=== PATIENT | female | born 1970 | race Caucasian/White ===

== ENCOUNTER 2024-07-03 11:42 | Emergency (ER) | payer SELFPAY ==
--- NOTE | ~2024-07-03 | CT_ITS ---
History: Neck pain PROCEDURE: CT cervical spine without intravenous contrast. COMPARISON: None TECHNIQUE: Multiple contiguous axial images of the cervical spine were performed without the administration of i ntravenous contrast. DLP: 461 mGy-cm FINDINGS: Straightening and slight reversal of the normal curvature of the cervical spine is identified, likely muscular in origin. Kyphosis is also noted. Degenerative disease is present, with osteophyte formation and disc space narrowing most prominent at the levels of C5/C6 and C6/C7. No acute fractures are present. The bilateral lung apices are unremarkable. No soft tissue abnormality is present. The airway is patent. Impression: Straightening and slight reversal of the normal curvature of the cervical spine, likely muscular in o rigin. Degenerative disease, without acute fracture. Reviewed, dictated and finalized at location A. SSIONS DEAN Impression: Straightening and slight reversal of the normal curvature of the cervical spine , likely muscular in origin. Degenerative disease, without acute fracture.
--- NOTE | ~2024-07-03 | XR_ITS ---
CHEST RADIOGRAPH, PA AND LATERAL CLINICAL HISTORY: pain, H/O cardiac stents . COMPARISON: None available TECHNIQUE: PA and lateral views of the chest. FINDINGS The cardiomediastinal silhouette is unremarkable. The lungs are clear. Visualized osseous structures and soft tissues are unremarkable. IMPRESSION: No focal infiltrate or effusion. Reviewed, dictated and finalized at location A. IFICATION AND SELECTION SPECIALIST
--- NOTE | ~2024-07-03 | XR_ITS ---
HISTORY: pain, acute onset left shoulder pain, no injury COMPARISON: None TECHNIQUE: 3 views of the left shoulder were performed FINDINGS: No acute fracture. The glenohumeral and acromioclavicular joint space is maintained The visualized portion of the adjacent left lung is clear. The humeral head is well seated within the glenoid fossa. IMPRESSION: No acute fracture or anterior dislocation. Reviewed, dictated and finalized at location A. INSTRUCTOR
[2024-07-03 12:01] VITALS: BP 142/76; PULSE 61; TEMP 36.5; O2SAT 97
--- NOTE | 2024-07-03 13:33 | ED.GENADULT ---
HPI - General Adult General Chief complaint: Neck Pain/Injury <Leslee Jones October, BOARD WORKER - Last Filed: 07/03/24 18:39> Stated complaint: back, shoulder, neck pain x1 week <Leslee Jones October, BOARD WORKER - Last Filed: 07/03/24 18:39> Time Seen by Provider: 07/03/24 13:33 <Leslee Jones October, BOARD WORKER - Last Filed: 07/03/24 18:39> Focused HPI: Padmini Torres is a 53 y/o female who presents with complaints of having severe neck pain that moves down her left shoulder and down her left arm for one week - She thinks she might of woken up with the pain - Movement makes her pain worse GENERAL: Well-appearing, well-nourished, and in no acute distress. HEAD: Normocephalic, atraumatic. CHEST: Clear to auscultation. ?No respiratory distress. HEART: Regular rate and rhythm.? NEURO: ?Alert and oriented x3. Patient screened in triage and initial orders placed.? ?Additional care and disposition to be based upon?diagnostic testing and treatment. <Leslee Jones October, BOARD WORKER - Last Filed: 07/03/24 18:39> History of Present Illness HPI narrative: Agree with MSE <Nabil Brooke MD - Last Filed: 07/03/24 19:41> Related Data Allergies/adverse reactions: Allergies Allergy/AdvReac Type Severity Reaction Status Date / Time Sulfa (Sulfonamide Allergy Severe Anaphylaxis Verified 07/03/24 11:44 Antibiotics) Penicillins AdvReac Intermediate Hives Verified 07/03/24 11:44 eggs AdvReac Intermediate Hives Uncoded 07/03/24 11:44 <Leslee Jones October, BOARD WORKER - Last Filed: 07/03/24 18:39> Exam Narrative: APPEARANCE: No apparent distress. Head: atraumatic. EYES: EOMI, NOSE: Atraumatic NECK: Trachea midline, no midline cervical tenderness, tenderness over left trapezius RESPIRATORY: No increased rate of breathing clear to auscultation CARDIOVASCULAR: RRR, ABDOMINAL: Non-distended MUSCULOSKELETAl: Focal exam of the left upper extremity revealed tenderness along the triceps and upper forearm. He audiologist strength is intact, Radian ulnar median motor function intact. Sensation intact. Pain is worse with movement. NEURO: Alert. Moving 4/4 extremities SKIN:: Warm, dry. Normal color PSYCHIATRIC: Normal affect <Nabil Brooke MD - Last Filed: 07/03/24 19:41> Course Vital Signs Vital signs: Vital Signs Temperature 97.7 F 07/03/24 12:01 Pulse Rate 61 07/03/24 12:01 Blood Pressure 142/76 H 07/03/24 12:01 Pulse Oximetry 97 07/03/24 12:01 Temperature 97.7 F 07/03/24 12:01 Pulse Rate 60 07/03/24 19:00 Respiratory Rate 16 07/03/24 19:00 Blood Pressure 140/96 H 07/03/24 19:00 Pulse Oximetry 98 07/03/24 19:00 <Leslee Gilbert APRN - Last Filed: 07/03/24 18:39> Vital Signs Temperature 97.7 F 07/03/24 12:01 Pulse Rate 61 07/03/24 12:01 Blood Pressure 142/76 H 07/03/24 12:01 Pulse Oximetry 97 07/03/24 12:01 Temperature 97.7 F 07/03/24 12:01 Pulse Rate 60 07/03/24 19:00 Respiratory Rate 16 07/03/24 19:00 Blood Pressure 140/96 H 07/03/24 19:00 Pulse Oximetry 98 07/03/24 19:00 <Nabil Brooke MD - Last Filed: 07/03/24 19:41> Medical Decision Making MDM Narrative Medical decision making narrative: -Course: 53-year-old female presenting with left-sided neck shoulder and arm pain. It is worse with movement. Appears to be musculoskeletal. Imaging negative for fracture. Patient will be given symptomatic treatment discharged follow-up with primary care physician. -DDX includes but is not limited to: Muscle strain, cervical radiculopathy, peripheral neuropathy <Nabil Brooke MD - Last Filed: 07/03/24 19:41> Vital Signs Vital Signs: Vital Signs Temperature 97.7 F 07/03/24 12:01 Pulse Rate 61 07/03/24 12:01 Blood Pressure 142/76 H 07/03/24 12:01 Pulse Oximetry 97 07/03/24 12:01 Temperature 97.7 F 07/03/24 12:01 Pulse Rate 60 01/28/25 19:00 Respiratory Rate 16 07/03/24 19:00 Blood Pressure 140/96 H 07/03/24 19:00 Pulse Oximetry 98 07/03/24 19:00 <Leslee Gilbert APRN - Last Filed: 07/03/24 18:39> Vital Signs Temperature 97.7 F 07/03/24 12:01 Pulse Rate 61 07/03/24 12:01 Blood Pressure 142/76 H 07/03/24 12:01 Pulse Oximetry 97 07/03/24 12:01 Temperature 97.7 F 07/03/24 12:01 Pulse Rate 60 07/03/24 19:00 Respiratory Rate 16 07/03/24 19:00 Blood Pressure 140/96 H 07/03/24 19:00 Pulse Oximetry 98 07/03/24 19:00 <Nabil Brooke MD - Last Filed: 07/03/24 19:41> Discharge Plan Discharge Clinical Impression: Strain of neck muscle, Arm pain <Leslee Gilbert APRN - Last Filed: 07/03/24 18:39> Patient Disposition: Home, Self-Care <Leslee Gilbert APRN - Last Filed: 07/03/24 18:39> Condition: Stable <Leslee Gilbert APRN - Last Filed: 07/03/24 18:39> Instructions: Antibiotic Form, Arm Pain (ED), Neck Pain (ED) <Leslee Gilbert APRN - Last Filed: 07/03/24 18:39> Additional Instructions: Please take Tylenol Robaxin and lidocaine patches for pain control. Please follow-up primary care physician. If you develop severe pain or weakness in your arm return to the ED for re-evaluation. <Leslee Gilbert APRN - Last Filed: 07/03/24 18:39> Patient Language: Greenlandic <Leslee Gilbert APRN - Last Filed: 07/03/24 18:39> Prescriptions: New acetaminophen 500 mg tablet 1,000 mg PO TID PRN (Reason: karlo) 7 Days Qty: 42 0RF methocarbamol 750 mg tablet 1,500 mg PO TID Qty: 35 0RF lidocaine 5 % adhesive patch,medicated 1 patch topical DAILY Qty: 15 0RF Rx Instructions: leave on most painful area for up to 12 hrs <Leslee Jones October, BOARD WORKER - Last Filed: 07/03/24 18:39> Follow-up/Referrals: PHYSICIAN,SERVICE TECH/WELDER [Primary Care Provider] - Reed Simmons MD [Physician] - <Leslee Gilbert, BOARD WORKER - Last Filed: 07/03/24 18:39>
[2024-07-03] MEDS: HYDROcodone/acetaminophen (*CRX) 5-325 MG TABLET 2 TAB (17:55)
[2024-07-03 19:00] VITALS: BP 140/96; PULSE 60; RESP 16; O2SAT 98
--- OUTSIDE RECORDS SUMMARY | 2024-07-03 19:09 | XMS_ITS | Clinical Summary ---
Author Organization [facility] Address [address] [place] [address]. 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 Egg-Derived Products Hives Medium 08/15/2017 Eggs Hives Medium 08/15/2017 Latex Hives Medium 08/26/2022 Lisinopril Other (see comment) 08/26/2020 Penicillins Hives 01/14/2019 Sulfa Antibiotics Anaphylaxis High 01/14/2019 Medications hydrOXYzine 25 MG tablet Take 1 tablet (25 mg total) by mouth 3 (three) times daily as needed. 08/19/19 21 Active lidocaine viscous (XYLOCAINE) 2 % solution Take by mouth as needed for Pain. Active meloxicam (MOBIC) 15 MG tablet Take 1 tablet (15 mg total) by mouth daily. Active nitroglycerin (NITROSTAT) 0.[address] 1 tablet (0.4 mg total) under the tongue every 5 (five) minutes as needed for Chest Pain. Max 3 tabs, then all 911 25 tablet 1 10/05/19 24 Active diclofenac sodium (VOLTAREN) 1 % gelIndications: Foot tendinitis Apply 4 g topically 4 (four) times daily. 100 g 11/18/19 24 Active amLODIPine (NORVASC) 5 MG tablet Take 1 tablet by mouth once daily 90 tablet 1 12/27/19 24 Active isosorbide mononitrate ER (IMDUR) 30 MG 24 hr tablet Take 1 tablet by mouth once daily 90 tablet 1 12/30/19 24 Active atorvastatin (LIPITOR) 80 MG tablet Take 1 tablet by mouth once daily 90 tablet 03/26/20 24 Active atenolol (TENORMIN) 50 MG tablet Take 1 tablet by mouth once daily 90 tablet 1 05/02/20 24 Active traMADol (ULTRAM) 50 MG tabletIndicatio ns:Acute Pain < 3 Day Supply Take 1 tablet (50 mg total) by mouth every 6 (six) hours as needed. Indications: Acute Pain < 3 Day Supply 10 tablet 05/07/20 24 Active lidocaine 4 % patch Place 1 patch onto the skin daily. Remove & Discard patch within 12 hours or as directed by MD 30 patch 05/07/20 24 Active albuterol sulfate HFA 108 (90 Base) MCG/ACT inhaler INHALE 2 PUFFS BY MOUTH EVERY 6 HOURS NEEDED 9 g 06/19/19 25 Active albuterol sulfate HFA 108 (90 Base) MCG/ACT inhaler INHALE 2 PUFFS BY MOUTH EVERY 6 HOURS NEEDED 9 g 05/28/20 24 025 Discontinued Active Problems Problem Noted Date Diagnosed Date Cholecystitis 06/10/2023 Abnormal stress test 01/23/2021 Anxiety 01/23/2021 Chest pain 02/21/2020 Coronary artery disease invo lving [place] coronary artery of [place] heart without angina pectoris 09/26/2019 Mixed hyperlipidemia 09/26/2019 Overview (09/01/2022): Last Assessment & Plan: Will continue patient's Lipitor. 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 But took 1 dose the morning prior to presentation. She states her blood pressure improved to 131/79 from 170s but afterwards she felt tired most of the day. She did not take a 2nd dose. Patient received IV hydralazine with improvement in blood pressure. Will order p.o. Hydralazine 10 t.i.d. And add on hydrochlorothiazide 25 daily. Continue to monitor and adjust medications as needed. Continue with p.r.n. IV hydralazine. Essential hypertension 08/15/2017 Overview (09/01/2022): Last Assessment & Plan: Patient's blood pressure has been within normal limits. - will continue patient's amlodipine and atenolol Obesity 10/20/2013 Tobacco dependence syndrome 10/20/2013 Overview (09/01/2022): TOBACCO USE DISORDER Last Assessment & Plan: #of pack years: 15 - Patient has been educated about the risks of smoking and benefits of stopping. Patient has been advised to quit, and if that fails, to discuss pharmacological options with their PCP. - Discussed potential effects of tobacco including lung cancer, COPD, heart disease, and stroke - Nicotine patch daily Encounters Date Type Department Care Team Description 06/27/2024 8:00 PM HOSPITAL CNA - 06/27/2024 10:55 PM [facility] Emergency [facility] [place] [address] Sandie Delgado DO Neck Pain; Shoulder Pain Discharge Disposition: Left Against Medical Advice 06/27/2024 Travel 05/11/2024 Telephone [facility], [address] [address] Angelica Santana, OFFICE SERVICES ASSOCIATE Results 05/07/2024 4:43 PM HOSPITAL CNA - 05/07/2024 6:44 PM [facility] Emergency [facility] [place] [address] Brayan Jewell MD Abdominal Pain Discharge Disposition: Home or Self Care (Routine Discharge) 05/07/2024 Travel 04/11/2024 10:45 AM [facility] [address] [address] Jaciel Palmer MD Coronary Artery Disease (Follow up); Lipids; Hypertension 04/11/2024 Travel 04/06/2024 1:[address] [facility], [address] [address] Jaciel Palmer MD Holter Monitor 04/06/2024 8:26 AM CDT - 04/06/2024 11:59 PM CDT Hospital Encounter [facility] [place] [address] Jaciel Palmer MD Discharge Disposition: Home or Self Care (Routine Discharge) 04/06/2024 Travel from Last 3 Months Family History Medical History Relation Comments Heart Disease Father Lung Cancer Father Nonhodgkins lymphoma Father Heart Disease Maternal Grandfather Hypertension Mother Stroke Mother gallbladder cancer Mother Heart Disease Paternal Grandmother Relation Status Comments Father Maternal Grandfather Mother Paternal Grandmother Social History Tobacco Use Types Packs/Day Years Used Date Smoking Tobacco: Every Day Cigarettes Smokeless Tobacco: Never Tobacco Cessation:Ready to Q uit: Not Asked; Counseling Given: Not Answered Alcohol Use Standard Drinks/Week Comments Yes 0 (1 standard drink = 0.6 oz pur e alcohol) [facility] Utilities Answer Date Recorded In the past 12 months has e Identify, gas, oil, or water Plyfe threatened to shut off services in your home? No 06/10/2023 Humiliation, Afraid, Rape, and Kick questionnair e Answer Date Recorded Within the last year, have y ou been afraid of your partner or ex-partner? No 06/10/2023 Within the last year, have y ou been humiliated or emotionally abused in other ways by your partner or ex-partner? No Within the last year, have y ou been kicked, hit, slapped, or otherwise physically hurt by your partner or ex-partner? No 06/10/2023 Within the last year, have y ou been raped or forced to have any kind of sexual activity by your partner or ex-partner? No 06/10/2023 AUDIT-C Answer Date Recorded Frequency of Alcohol Consumption Never 01/14/2019 Average Number of Drinks Not on file 019 Frequency of Binge Drinking Not on file 01/04 Overall Financial Resource Strain (CARDIA) Answe r Date Recorded How hard is it for you to pa y for the very basics like food, housing, medical care, and heating? Somewhat hard 06/10/2023 Hunger Vital Sign Answer Date Recorded Within the past 12 months, y ou worried that your food would run out before you got the money to buy more. Sometimes true Within the past 12 months, t he food you bought just didn't last and you didn't have money to get more. Sometimes true 10/2023 PRAPARE - Transportation Answer Date Re corded In the past 12 months, has l ack of transportation kept you from medical appointments or from getting medications? No 10/2023 In the past 12 months, has l ack of transportation kept you from meetings, work, or from getting things needed for daily living? No 06/10/2023 Housing Stability Vital Sign Answer Martell e Recorded In the last 12 months, was t here a time when you were not able to pay the mortgage or rent on time? No 06/10/2023 In the last 12 months, how many places have you lived? 1 06/10/2023 In the last 12 months, was t here a time when you did not have a steady place to sleep or slept in a detention (including now)? No 06/10/2023 Comments No Sex and Gender Information Value Date Recorded Sex Assigned at Female 06/27/2024 6:08 PM HOSPITAL CNA Legal Sex Female 11:31 AM CDT Gender Identity Not on file Sexual Orientation Not on file Last Filed Vital Signs Vital Sign Reading Time Taken Comments Blood Pressure 152/83 06/27/2024 5:24 PM HOSPITAL CNA Pulse 68 06/27/2024 5:24 PM HOSPITAL CNA Temperature 36.7 ??C (98.1 ??F) 06/27/2024 5:24 PM CS T Respiratory Rate 20 06/27/2024 5:24 PM HOSPITAL CNA Oxygen Saturation 100% 06/27/2024 5:24 PM HOSPITAL CNA Inhaled Oxygen Concentration - - Weight 105.7 kg (233 lb 0.4 oz) 06/27/2024 5:24 PM HOSPITAL CNA Height 170.2 cm (5' 7 ) 06/27/2024 5:24 PM HOSPITAL CNA Body Mass Index 36.5 06/27/2024 5:24 PM HOSPITAL CNA Plan of Treatment Upcoming Encounters Date Type Department Care Team (Late st Contact Info) Description 10/10/2024 11:00 AM CDT Office Visit [facility], [address] [id number] Jaciel Palmer MD [facility]. [address] [address] Health Maintenance Due Date Last Done Comments Colorectal Cancer Screening Colonoscopy (10 Years) 1970 Annual Physical 12/02/1974 Pneumococcal Vaccine: Pediatrics (0 to 5 Years) and At-Risk Patients (6 to 64 Years) (1 of 2 - PCV) 12/02/1977 Hepatitis C 12/02/1989 Hepatitis B Vaccines (1 of 3 - 19+ 3-dose series) 12/02/1990 Mammogram Screening 09/13/2019 09/12/2017, 02/12/2016 Zoster Vaccines (1 of 2) 12/02/2021 Cervical Cancer Screening Pa p Smear (Age 30 to 64) Every 3 Years 01/04/2024 01/03/2021 COVID-19 Vaccine ( - 2023-2 5 season) 2024 Influenza Adult (#1) 2024 ASCVD LDL 04/06/2024 04/06/2023, 02/12/2023, 02/22/2020 DTaP, Tdap and Td Vaccines ( 2 - Td or Tdap) 06/14/2024 06/14/2014 Cervical Cancer Screening Pa p with HPV Testing (Age 30 to 64) Every 5 Years 01/03/2026 01/03/2021 Cervical Cancer Screening wi th HPV 01/03/2026 Meningococcal B Vaccine Aged Out No l onger eligible based on patient's age to complete this topic Meningococcal Vaccine Aged Out No shaggy randy eligible based on patient's age to complete this topic RSV Immunizations Under 20 Months Aged Out No longer eligible b ased on patient's age to complete this topic Goals Goal Patient Goal Type Associated Problems Recent Progress Patient-Stated? 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 Procedure Name Priority Date/Time Associated Diagnosis Comments XR CHEST PA OR AP 1V STAT 06/27/2024 6:26 PM HOSPITAL CNA XR SHOULDER LT 3V STAT 06/27/2024 6:2 6 PM HOSPITAL CNA TROPONIN, QUANT STAT 06/27/2024 6:02 PM HOSPITAL CNA COMPREHENSIVE METABOLIC PANEL STAT 06/27/2024 6:02 PM HOSPITAL CNA CBC W/DIFF AUTOMATED STAT 06/27/2024 6:02 PM HOSPITAL CNA ECG 12-LEAD Routine 06/27/2024 5:56 PM HOSPITAL CNA HC URINALYSIS AUTO W/O MICRO STAT 05/07/2024 5:43 PM HOSPITAL CNA LIPASE STAT 05/07/2024 5:43 PM HOSPITAL CNA D-DIMER, QUANTITATIVE STAT 05/07/2024 5:43 PM HOSPITAL CNA TROPONIN, QUANT STAT 05/07/2024 5:43 PM HOSPITAL CNA COMPREHENSIVE METABOLIC PANEL STAT 05/07/2024 5:43 PM HOSPITAL CNA CBC W/DIFF AUTOMATED STAT 05/07/2024 5:43 PM HOSPITAL CNA XR CHEST PORTABLE STAT 05/07/2024 5:2 1 PM HOSPITAL CNA ECG 12-LEAD STAT 05/07/2024 5:01 PM HOSPITAL CNA EVENT RECORDER (ECG) UP TO 30 DAYS COMPLETE Routine 04/25/2024 7:47 AM HOSPITAL CNA Palpitations USE ECHOCARDIOGRAM Routine 04/06/2024 9: 14 AM CDT Chest pain, unspecified type LIPID PANEL Routine 04/06/2023 12:06 PM CDT Coronary artery disease involving [place] coronary artery of [place] heart without angina pectoris from Last 3 Months or Most Recently Relevant to Health Maintenance Results * XR CHEST PA OR AP 1V (06/27/2024 6:26 PM HOSPITAL CNA) Anatomical Region Laterality Modality Chest Radiographic Inez ging 06/27/2024 6:58 PM HOSPITAL CNA Impressions 06/27/2024 7:00 PM HOSPITAL CNA Impression: No acute findings. Referred By: ?? Interpreted By: Gaurav Maya MD, 06/27/2024 6:58 PM Narrative 06/27/2024 7:00 PM HOSPITAL CNA [address] [address] Examination: Chest 1 view portable History: Shoulder pain DATE/TIME: 06/27/2024 6:12 PM Comparison: May 07, 2024 Technique: AP portable view of the chest was obtained. Findings: Heart size, mediastinal contours and pulmonary vasculature are within normal limits. ??No pulmonary consolidation, pleural effusion or pneumothorax. ??No acute osseous abnormality. Procedure Note Gaurav Maya MD - 06/27/[address] [address] Examination: Chest 1 view portable History: Shoulder pain DATE/TIME: 06/27/2024 6:12 PM Comparison: May 07, 2024 Technique: AP portable view of the chest was obtained. Findings: Heart size, mediastinal contours and pulmonary vasculature arewithin normal limits. No pulmonary consolidation, pleural effusion orpneumothorax. No acute osseous abnormality. Impression: No acute findings. Referred By: Interpreted By: Gaurav Maya MD, 06/27/2024 6:58 PM Michelle Kirkland Josiahveena OFFICE SERVICES ASSOCIATE GENERAL IMAGING Final Resul t * XR SHOULDER LT 3V (06/27/2024 6:26 PM HOSPITAL CNA) Anatomical Region Laterality Modality Shoulder Radiographic Inez ging 06/27/2024 7:00 PM HOSPITAL CNA Impressions 06/27/2024 7:02 PM HOSPITAL CNA IMPRESSION: No acute findings. Referred By: ?? Interpreted By: Gaurav Maya MD, 06/27/2024 7:00 PM Narrative 06/27/2024 7:02 PM HOSPITAL CNA [address] [address] EXAMINATION: XR SHOULDER LT 3V HISTORY: Pain after injury DATE: 06/27/2024 6:12 PM COMPARISON: None TECHNIQUE: AP, Grashey and scapular Y views of the left shoulder. ??3 images. FINDINGS: No acute fracture identified. ??No dislocation. ??Joint spaces are unremarkable. ??No destructive bone lesion. Procedure Note Gaurav Maya MD - 06/27/[address] [address] EXAMINATION: XR SHOULDER LT 3V HISTORY: Pain after injury DATE: 06/27/2024 6:12 PM COMPARISON: None TECHNIQUE: AP, Grashey and scapular Y views of the left shoulder. 3images. FINDINGS: No acute fracture identified. No dislocation. Joint spaces areunremarkable. No destructive bone lesion. IMPRESSION: No acute findings. Referred By: Interpreted By: Gaurav Maya MD, 06/27/2024 7:00 PM Michelle Kirkland Maricece OFFICE SERVICES ASSOCIATE GENERAL IMAGING Final Resul t * (ABNORMAL) COMPREHENSIVE METABOLIC PANEL (06/27/2024 6:02 PM HOSPITAL CNA) Only the most recent of2 resultswithin the time period is included. GLUCOSE 105(H) 70 - 99 MG/DL 06/27/2024 6:46 PM HOSPITAL CNA [facility] BUN 8 7 - 18 MG/DL 06/27/2024 6:46 PM HOSPITAL CNA [facility] CREATININE S/P/B 0.86 0.55 - 1.02 MG/DL 06/27/2024 6:46 PM HOSPITAL CNA [facility] SODIUM S/P/B 136 136 - 145 MMOL/L 06/27/2024 6:46 PM HOSPITAL CNA [facility] POTASSIUM S/P/B 4.0 3.5 - 5.1 MMOL/L 06/27/2024 6:46 PM [facility] Comment:SLIGHT HEMOLYSIS, RE SULT MAY BE AFFECTED. CHLORIDE S/P/B 106 97 - 115 MMOL/L 06/27/2024 6:46 PM HOSPITAL CNA [facility] CO2 25.1 21 - 32 MMOL/L 06/27/2024 6:46 PM HOSPITAL CNA [facility] CALCIUM S/P/B 9.3 8.5 - 10.1 MG/DL 06/27/2024 6:46 PM [facility] BILIRUBIN TOTAL S/P/B 0.5 0.2 - 1.2 MG/DL 06/27/2024 6:46 PM [facility] Comment: THIS ASSAY IS NOT RECOMMENDED FOR PATIENTS UNDERGOING TREATMENT WITH ELTROMBOPAG DUE TO THE POTENTIAL FOR FALSELY ELEVATED RESULTS. TOTAL PROTEIN S/P/B 8.0 6.4 - 8.2 G/DL 06/27/2024 6:46 PM [facility] ALBUMIN S/P/B 3.5 3.4 - 5.0 G/DL 06/27/2024 6:46 PM [facility] AST 21 15 - 37 U/L 06/27/2024 6:46 PM [facility] Comment:SLIGHT HEMOLYSIS, RE SULT MAY BE AFFECTED. ALT 23 14 - 55 U/L 06/27/2024 6:46 PM [facility] ALKALINE PHOSPHATASE S/P/B 133 50 - 136 U/L 06/27/2024 6:46 PM [facility] ANION GAP 4.9 2 - 10 MMOL/L 06/27/2024 6:46 PM [facility] BUN CREATININE RATIO 9.2 6 - 26 06/27/2024 6:46 PM [facility] A/G RATIO 0.8(L) 1.0 - 2.0 RATIO 06/27/2024 6:46 PM [facility] GFR ESTIMATE 81(L) >90 ML/MIN/1.7 3 M2 06/27/2024 6:46 PM [facility] Comment: NOTE: eGFR is not calculated for patients <18 years of age or gender unknown. This is an estimated GFR calculation using the new CKD EPI creatinine equation without race and so does not require a correction factor for race. This estimated GFR should not be used for calculating drug doses. 06/27/2024 6:02 PM HOSPITAL CNA [facility] Final Resul t [facility] [address] [place] [address], [place] [phone] * (ABNORMAL) CBC W/DIFF AUTOMATED (06/27/2024 6:02 PM HOSPITAL CNA) Only the most recent of2 resultswithin the time period is included. WBC 7.85 4.5 - 11.0 x10'3/uL 06/27/2024 6:37 PM HOSPITAL CNA [facility] RBC 4.84 4.20 - 5.40 x10'6/uL 06/27/2024 6:37 PM HOSPITAL CNA [facility] HGB 14.4 12.0 - 16.0 G/DL 06/27/2024 6:37 PM HOSPITAL CNA [facility] HCT 43.3 38.0 - 48.0 % 06/27/2024 6:37 PM HOSPITAL CNA [facility] MCV 89.5 81.0 - 99.0 FL 06/27/2024 6:37 PM HOSPITAL CNA [facility] MCH 29.8 27.0 - 31.0 PG 06/27/2024 6:37 PM HOSPITAL CNA [facility] MCHC 33.3 32.0 - 36.0 G/DL 06/27/2024 6:37 PM HOSPITAL CNA [facility] RDW 14.6(H) 11.5 - 14.5 % 06/27/2024 6:37 PM HOSPITAL CNA [facility] PLT 208 130 - 400 x10'3/uL 06/27/2024 6:37 PM [facility] MPV 11.7 9.3 - 12.2 FL 06/27/2024 6:37 PM [facility] DIFFERENTIAL TYPE MANUAL DIFFERENTIAL 06/27/2024 6:38 PM HOSPITAL CNA [facility] SEG NEUTROPHILS 65 % 6:38 PM HOSPITAL CNA [facility] LYMPHOCYTES 22 % 06/27/2024 6:38 PM HOSPITAL CNA [facility] MONOCYTES 10 % 06/27/2024 6:38 PM HOSPITAL CNA [facility] EOSINOPHILS 3 % 06/27/2024 6:38 PM HOSPITAL CNA [facility] ABS. NEUTROPHILS 5.10 1.80 - 7.70 x10'3/uL 06/27/2024 6:38 PM HOSPITAL CNA [facility] ABS. LYMPHOCYTES 1.73 1.00 - 4.80 x10'3/uL 06/27/2024 6:38 PM HOSPITAL CNA [facility] ABS. MONOCYTES 0.79 0.24 - 0.86 x10'3/uL 06/27/2024 6:38 PM HOSPITAL CNA [facility] ABS. EOSINOPHILS 0.24 0.04 - 0.36 x10'3/uL 06/27/2024 6:38 PM [facility] RBC MORPHOLOGY RBC MORPHOLOGY APPEARS NORMAL. SLIDE REVIEWED. 06/27/2024 6:38 PM [facility] PLT EST. ADEQUATE 06/27/2024 6:38 PM [facility] 06/27/2024 6:02 PM HOSPITAL CNA us Michelle Jay OFFICE SERVICES ASSOCIATE LABORATORY Final Resul t [facility] [address] [place] [address], * TROPONIN, QUANT (06/27/2024 6:02 PM HOSPITAL CNA) Only the most recent of2 resultswithin the time period is included. TROPONIN I HIGH SENSITIVITY 4 <54 ng/L 06/27/2024 6:46 PM [facility] Comment: HIGH DOSES OF BIOTIN, TROPONIN-SPECIFIC AUTOANTIBODIES, AND ANTIBODY THERAPY CONTAINING HAMA MAY INTERFERE WITH THIS TEST RESULT. CORRELATION TO CLINICAL HISTORY AND PRESENTATION RECOMMENDED. 06/27/2024 6:02 PM HOSPITAL CNA Michelle Jay OFFICE SERVICES ASSOCIATE LABORATORY Final Resul t [facility] [address] [facility] [address], * ECG 12 lead (06/27/2024 5:56 PM HOSPITAL CNA) Only the most recent of2 resultswithin the time period is included. 06/27/2024 5:56 PM HOSPITAL CNA Narrative [facility] - 06/27/2024 11:29 PM HOSPITAL CNA ?[facility] ? [address] ? Test Date: ?2024-06-27 Pat Name: ? CASS TORRES ? Department: ?? 41 ? Room: ? INPR Gender: ? Female ? 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 Em : ?1970 ? Requested By: MICHELLE JAY Order Number: [id number] ? Reading MD: ?? Jose Luis Hernández ? Measurements Intervals ?[place] ? Rate: ? 61 ? P: ?35 TN: ? 159 ?QRS: ?39 QRSD: ? 98 ? T: ?31 QT: ? 392 ? QTc: ?396 ? 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: Alejandrina : 1970 Requested By: MICHELLE JAY Order Number: [id number] Reading MD: Jose Luis Hernández Measurements Intervals [place] Rate: 61 P: 35 TN: 159 QRS: 39 QRSD: 98 T: 31 QT: 392 QTc: 396 Interpretive Statements SINUS RHYTHM POSSIBLE LEFT ATRIAL ENLARGEMENT [-0.1mV P WAVE IN V1/V2] MINIMAL ST DEPRESSION [0.025+ mV ST DEPRESSION] Compared to ECG 05/07/2024 17:01:26 ST (T wave) deviation now present Sinus bradycardia no longer present Other ischemic changes, not STEMI Preliminary EKG Interpretation by Michelle Jay, OFFICE SERVICES ASSOCIATE ITAL CNA us Michelle Jay OFFICE SERVICES ASSOCIATE ECG ORDERABLES Final Resul t [facility] RAD * (ABNORMAL) URINALYSIS (05/07/2024 5:43 PM HOSPITAL CNA) SPECIMEN TYPE URINE CLEAN CATCH 05/07/2024 5:48 PM HOSPITAL CNA [facility] COLOR (U) YELLOW 05/07/2024 6:17 PM HOSPITAL CNA [facility] TRANSPARENCY CLEAR 05/07/2024 6:17 PM HOSPITAL CNA [facility] SPECIFIC GRAVITY (U) 1.027 1.001 - 1.030 05/07/2024 6:17 PM HOSPITAL CNA [facility] U PH 5.5 5.0 - 9.0 05/07/2024 6:17 PM HOSPITAL CNA [facility] LEUKOCYTES (U) NEGATIVE NEGATIVE 05/07/2024 6:17 PM HOSPITAL CNA [facility] NITRITES NEGATIVE NEGATIVE 05/07/2024 6:17 PM HOSPITAL CNA [facility] PROTEIN RANDOM (U) 10 <30 MG/DL 05/07/2024 6:17 PM HOSPITAL CNA [facility] GLUCOSE (U) NORMAL NORMAL MG/DL 05/07/2024 6:17 PM HOSPITAL CNA [facility] KETONES MG/DL (U) NEGATIVE NEGATIVE MG/DL 05/07/2024 6:17 PM HOSPITAL CNA [facility] UROBILINOGEN 2.0(A) NORMAL MG/DL 05/07/2024 6:17 PM HOSPITAL CNA [facility] BILIRUBIN (U) NEGATIVE NEGATIVE MG/DL 05/07/2024 6:17 PM HOSPITAL CNA [facility] BLOOD (U) NEGATIVE NEGATIVE 05/07/2024 6:17 PM HOSPITAL CNA [facility] URINE SPECIMEN OBTAINED BY CLEAN CATCH PROCEDURE / Unknown 05/07/2024 5:43 PM HOSPITAL CNA us Olivia VILLEGAS URINE ORDERABLES Final Result [facility] [address] [place] [address], [place] [phone] * (ABNORMAL) D-DIMER, QUANTITATIVE (05/07/2024 5:43 PM HOSPITAL CNA) D-DIMER 519(HH) 0 - 500 ng{FEU}/mL 05/07/2024 6:33 PM HOSPITAL CNA [facility] Comment: D-Dimer values less than or equal to 500 ng/mL FEU have a negative predictive value of >95% for exclusion of deep vein thrombosis and pulmonary embolism. In patients over 50 (who tend to have higher normal baseline D-Dimer values), recent studies suggest age-adjusted D-Dimer cutoff values (calculated as: age [years] x 10 ng/mL) result in equivalent outcomes and no additional false negative findings. Successful Call: DDIMR called 05/07/2024 06:35 PM to EMERGENCY ROOM ([id number]/MARÍA BONILLA) by [id number]. 05/07/2024 5:43 PM HOSPITAL CNA Olivia VILLEGAS [facility] Final Result Performing Organization Address City/[facility]/ZIP Co de Phone Number [facility] [address] [place] [address], [place] [phone] * LIPASE (05/07/2024 5:43 PM HOSPITAL CNA) LIPASE 20 13 - 75 UNITS/L 05/07/2024 6:17 PM HOSPITAL CNA [facility] 05/07/2024 5:43 PM HOSPITAL CNA Olivia VILLEGAS [facility] Final Result Performing Organization Address City/[facility] Co de Phone Number [facility] [address] [place] [address], [place] [phone] * XR CHEST PORTABLE (05/07/2024 5:21 PM HOSPITAL CNA) Anatomical Region Laterality Modality Chest Radiographic Inez ging 05/07/2024 5:57 PM HOSPITAL CNA Impressions 05/07/2024 5:59 PM HOSPITAL CNA IMPRESSION: No radiographic evidence of active chest disease. Ordered By: OLIVIA CRUZ Interpreted By: Jason Arango MD, 05/07/2024 5:57 PM Narrative 05/07/2024 5:59 PM HOSPITAL CNA [facility] [address] [place], [place] [address] Examination: XR CHEST PORTABLE Exam time: 05/07/2024 5:00 PM Indication: Chest pain Comparison: 12/16/2023 and 09/16/2023 Technique: Portable AP view the chest, one image. Findings: Mediastinal silhouette and pulmonary vasculature are within normal limits for technique. No pneumothorax, large pleural effusion, or focal consolidation. No acute osseous abnormality. Procedure Note Jason Arango MD - 05/07/[address] [address] Examination: XR CHEST PORTABLE Exam time: 05/07/2024 5:00 PM Indication: Chest pain Comparison: 12/16/2023 and 09/16/2023 Technique: Portable AP view the chest, one image. Findings: Mediastinal silhouette and pulmonary vasculature are withinnormal limits for technique. No pneumothorax, large pleural effusion, orfocal consolidation. No acute osseous abnormality. IMPRESSION: No radiographic evidence of active chest disease. Ordered By: OLIVIA CRUZ Interpreted By: Jason Arango MD, 05/07/2024 5:57 PM us Olivia Cruz PA GENERAL IMAGING Final Result * CLINIC - OUTPATIENT EVENT RECORDER (ECG) UP TO 30 DAYS COMPLETE (Holter) (04/25/2024 7:47 AM HOSPITAL CNA) Impressions [facility] - 04/25/2024 7:47 AM HOSPITAL CNA [facility] [address] [place], [place] ??[address] MOBILE CARDIAC OPERATIONS ADMINISTRATOR REPORT Patient Name: Cass Torres : 1970 [employer] Operator Date: 04/09/2024 End Date: 04/15/2024 Performed At: ??[place], [place] Interpreting Mobile Architect: ?? Koffi Shaw MD PCP: Provider Jl, Ordering Provider: Jaciel Palmer MD INDICATION: Palpitations DURATION OF MONITORIN days NUMBER OF TRANSMISSIONS: 4 (3auto transmissions, 1 manual, 0 periodic) INTERPRETATION: A 7-day mobile cardiac surveillance system monitor analyzed. Interpretable data was 0 days, 8 hours and 9 minutes (5% of monitoring period). The baseline rhythm was sinus rhythm. There was not atrial fibrillation or atrial flutter observed. A minimum heart rate was 61 bpm on 04/09/2024 at 2:17 PM. A maximum heart rate in sinus rhythm was 94 bpm on 04/09/2024 at 4:36 PM. There were no pauses observed. The manual triggered episodes had no reported symptoms and correlated with sinus rhythm. The auto triggered episodes were for sinus rhythm, premature ventricular complex, premature supraventricular complex. CONCLUSION: 7-day mobile cardiac telemetry was with very limited data collected. ??There were no significant arrhythmias observed. Interpreting Mobile Architect: ?? Dr. Koffi Shaw us Jaciel Plamer MD CV VASCULAR ORDERABLES Katrina l Result [facility] * USE ECHOCARDIOGRAM (04/06/2024 9:14 AM CDT) Anatomical Region Laterality Modality Cardiac Echocardiogram 04/06/2024 8:42 AM CDT Narrative 04/06/2024 11:41 AM CDT ?Echocardiography Report Pat.Name: ??CASS TORRES ? Pat.ID: ?[id number] ? St.Date: ?? 04/06/2024 ? Refer.MD: ??[id number], JACIEL PALMER Exam Time: 8:42:00 AM ? Study Type:ECHO WITH CARDIAC DOPPLER COMP Height: ?67 in ? Weight: ?221 lb ? BSA: ? 2.11 m2 ?Age: ??1970,53Y ? Sex: ? F ? BP: ?155/84 ? Sonogrphr: Ann Segura RDMS ?? Pat. Stat.:Outpatient ? CPT - 4: ?75501 ? Reason for Study:Chest pain ? Procedures: 2D, M-mode, Doppler, Color Flow, The study quality is technically adequate. Race: ?W ? ++++++++++++++++++++++++++++++++++++ SUMMARY: ++++++++++++++++++++++++++++++++++++ Left ventricle is normal in size and systolic function Estimated EF of 60-65% Right ventricle is normal in size and systolic function Mild tricuspid regurgitation. Unable to estimate pulmonary pressures. ++++++++++++++++++++++++++++++++++++ FINDINGS: ++++++++++++++++++++++++++++++++++++ LV: ? The left ventricular size is normal. The left ventricular ?systolic function is normal. Estimated left ventricular ?ejection fraction is 60-65%. Left ventricular diastolic ?function is normal. WM: ? Wall motion appears normal in all segments. LVOT: ? The left ventricular outflow tract size is normal. RV: ? The right ventricular size is normal. Right ventricular ?systolic function is normal. TAPSE = 17.4mm (<16 mm ?indicates systolic RV dysfunction). IVS: ?No evidence of ventricular septal defect. LA: ? The left atrial volume is normal ( less than 34 ml/M2). RA: ? Right atrial size is normal. IAS: ?Atrial septum appears intact. KWADWO: ? No evidence of pericardial effusion. AO: ? The aortic root measures 3.1 cm. The proximal ascending ?aorta measures 2.9cm. PA: ? Estimated right atrial pressure of 3 mmHg. SVn: ?Inferior vena cava shows >50% collapse with respiration ?consistent with normal right atrial pressure. AV: ? The aortic valve is trileaflet. No evidence of aortic valve ?stenosis. No evidence of aortic valve regurgitation. MV: ? Structurally normal mitral valve. Trace mitral ?regurgitation. No evidence of mitral stenosis. PV: ? No evidence of pulmonic valve stenosis. No evidence of ?pulmonic regurgitation. Pulmonic valve not well visualized. TV: ? Structurally normal tricuspid valve. Mild tricuspid ?regurgitation. No evidence of tricuspid valve stenosis. ++++++++++++++++++++++++++++++++++++ MEASUREMENTS: ++++++++++++++++++++++++++++++++++++ ?DOPPLER LVOT ?? LVOTpkPG ? 7 mmHg ?LVOTmnPG ? 3 mmHg LVOTpkVel ?129 cm/s (70-110)+* LVOT SV ? 74 ml ?? LVOT TVI ?29.3 cm ? Right Atrium ?? RA Press ? 3 mmHg ?Flores's Disk ? 20 ? Pulmonary Veins ?? PVnpkVeld ? 60.9 cm/s ?PVnVs/Vd ? 1.4 ? PVnpkVels ? 86.4 cm/s ? AV Forward Flow AV TVI ?36.2 cm ?AV pkPG ? 10 mmHg AV pkVel ? 158 cm/s (100-170)+ Area (TVI) ?2.06 cm2 ??(3-5)* AV mnPG ?6 mmHg ?Area (Xavier) ?2.07 cm2 ??(3- 5)* MV Forward Flow MV DeTm ?159 msec ?MV E/A ? 1.5 ? MVA P1/2t ? 4.68 cm2 ??(4-6) ?MV pkE ?99 cm/s (60- 130) MV P1/2t ?47 msec (30-60)+ MV pkA ?64.5 cm/s PV Forward Flow PV pkVel ?93.5 cm/s (60-90)+* PV AC ?165 msec PV pkPG ?3 mmHg ? TV Regurg Flow TV pkPG ? 35 mmHg ?TV pkVel ? 294 cm/s (30- 70)* Right Ventricle ?? RVsys P ? 38 mmHg ?Right Ventricle ??11.1 cm/s TV Forward Flow TV pkE ?53.1 cm/s ? Lat E' ?? Lat e ? 9.46 cm/s ? Lat E/E' ?? Lat E/e ? 10.5 ? Med E' ?? Med e ? 7.83 cm/s ? Med E/E' ?? Med E/e ? 12.6 ? Aortic Valve ?? Aortic Valve Ar ??0.98 ?Aortic Valve Ve ??0.82 ? PV Antegrade Flow Acceleration Sl ?? 373 cm/s2 ?2D Left Ventricle ?? LVIDd ?4.9 cm ?? (3.6-5.2) LV ESV ?32 ml ?? LVIDs ?3 cm ?? (2.3-3.9) LV ESV ?36.1 ml ?? LngAxd ?7.25 cm ?LVESV BP ?35 ml ?? LngAxd ?7.39 cm ?LV EF ? 67 % ?? LV EDV ?97.1 ml ?LV EF ? 65 % ?? LV EDV ? 103 ml ?LV EF BP ?65 % ?? LVEDV BP ? 100 ml ?LV SV ? 65.1 ml ?? LngAxs ?5.82 cm ?LV SV ? 66.9 ml ?? LngAxs ?6.21 cm ?LV SV BP ?65 ml ?? LVPW ?? LVPWd ?1.2 cm ? Right Ventricle ?? RVIDd ?3 cm ?? (2.6-4.3) Right Ventricle ?35 mm ?? Right Ventricle ?32 mm ? Right and Left ??0.612 ? Major [place] ?78 mm ? Ventricular Septum ?? IVSd ? 1.3 cm ? Aorta ?? Ao Rtd ? 3.1 cm ?? (zsc 0.5) Ao Asc ? 2.9 cm ?? (zsc 1.1) LVOT ?? LVOT ? 1.8 cm ?LVOTArea ?2.54 cm2 Ratios ?? IVS RA Single Plane Right Atrium MO ??17.6 mm ? Right Atrium Sy ??44.9 ml ?? Right Atrium Sy ?61 mm ? Right Atrium Sy ??21.3 ml/m2 Right Atrium Sy ??18.1 cm2 ?MMODE Ratios ?? LA/Ao ? 1.34 ?(0.87-1.1)* Aorta ?? Ao Rt ?2.9 cm ?? (2-3.7) Left Atrium ?? LAIDs ?3.9 cm ? TA ?? Tricuspid Annul ??17.4 mm ? <Electronic Signature> 04/06/2024 11:41 AM Jaciel Palmer M.D. Procedure Note Jaciel Palmer MD - 04/06/2024 Echocardiography Report Pat.Name: CASS TORRES Pat.ID: [id number] .Date: 04/06/2024 Refer.MD: [id number], JACIEL PALMER Exam Time: 8:42:00 AM Study Type:ECHO WITH CARDIAC DOPPLER COMP Height: 67 in Weight: 221 lb BSA: 2.11 m2 Age: 6 1970,53Y Sex: F BP: 155/84 Sonogrphr: Ann Segura [facility] Pat. Stat.:Outpatient CPT - 4: 613[address] Reason for Study:Chest pain Procedures: 2D, M-mode, Doppler, Color Flow, The study quality is technically adequate. Race: W ++++++++++++++++++++++++++++++++++++ SUMMARY: ++++++++++++++++++++++++++++++++++++ Left ventricle is normal in size and systolic function Estimated EF of 60-65% Right ventricle is normal in size and systolic function Mild tricuspid regurgitation. Unable to estimate pulmonary pressures. ++++++++++++++++++++++++++++++++++++ FINDINGS: ++++++++++++++++++++++++++++++++++++ LV: The left ventricular size is normal. The left ventricular systolic function is normal. Estimated left ventricular ejection fraction is 60-65%. Left ventricular diastolic function is normal. WM: Wall motion appears normal in all segments. LVOT: The left ventricular outflow tract size is normal. RV: The right ventricular size is normal. Right ventricular systolic function is normal. TAPSE = 17.4mm (<16 mm indicates systolic RV dysfunction). IVS: No evidence of ventricular septal defect. LA: The left atrial volume is normal ( less than 34 ml/M2). RA: Right atrial size is normal. IAS: Atrial septum appears intact. KWADWO: No evidence of pericardial effusion. AO: The aortic root measures 3.1 cm. The proximal ascending aorta measures 2.9cm. PA: Estimated right atrial pressure of 3 mmHg. SVn: Inferior vena cava shows >50% collapse with respiration consistent with normal right atrial pressure. AV: The aortic valve is trileaflet. No evidence of aortic valve stenosis. No evidence of aortic valve regurgitation. MV: Structurally normal mitral valve. Trace mitral regurgitation. No evidence of mitral stenosis. PV: No evidence of pulmonic valve stenosis. No evidence of pulmonic regurgitation. Pulmonic valve not well visualized. TV: Structurally normal tricuspid valve. Mild tricuspid regurgitation. No evidence of tricuspid valve stenosis. ++++++++++++++++++++++++++++++++++++ MEASUREMENTS: ++++++++++++++++++++++++++++++++++++ DOPPLER LVOT LVOTpkPG 7 mmHg LVOTmnPG 3 mmHg LVOTpkVel 129 cm/s (70-110)+* LVOT SV 74 ml LVOT TVI 29.3 cm Right Atrium RA Press 3 mmHg Flores's Disk 20 Pulmonary Veins PVnpkVeld 60.9 cm/s PVnVs/Vd 1.4 PVnpkVels 86.4 cm/s AV Forward Flow AV TVI 36.2 cm AV pkPG 10 mmHg AV pkVel 158 cm/s (100-170)+ Area (TVI) 2.06 cm2 (3-5)* AV mnPG 6 mmHg Area (Xavier) 2.07 cm2 (3-5)* MV Forward Flow MV DeTm 159 msec MV E/A 1.5 MVA P1/2t 4.68 cm2 (4-6) MV pkE 99 cm/s (60-130) MV P1/2t 47 msec (30-60)+ MV pkA 64.5 cm/s PV Forward Flow PV pkVel 93.5 cm/s (60-90)+* PV AC 165 msec PV pkPG 3 mmHg TV Regurg Flow TV pkPG 35 mmHg TV pkVel 294 cm/s (30-70)* Right Ventricle RVsys P 38 mmHg Right Ventricle 11.1 cm/s TV Forward Flow TV pkE 53.1 cm/s Lat E' Lat e 9.46 cm/s Lat E/E' Lat E/e 10.5 Med E' Med e 7.83 cm/s Med E/E' Med E/e 12.6 Aortic Valve Aortic Valve Ar 0.98 Aortic Valve Ve 0.82 PV Antegrade Flow Acceleration Sl 373 cm/s2 2D Left Ventricle LVIDd 4.9 cm (3.6-5.2) LV ESV 32 ml LVIDs 3 cm (2.3-3.9) LV ESV 36.1 ml LngAxd 7.25 cm LVESV BP 35 ml LngAxd 7.39 cm LV EF 67 % LV EDV 97.1 ml LV EF 65 % LV EDV 103 ml LV EF BP 65 % LVEDV BP 100 ml LV SV 65.1 ml LngAxs 5.82 cm LV SV 66.9 ml LngAxs 6.21 cm LV SV BP 65 ml LVPW LVPWd 1.2 cm Right Ventricle RVIDd 3 cm (2.6-4.3) Right Ventricle 35 mm Right Ventricle 32 mm Right and Left 0.612 Major [place] 78 mm Ventricular Septum IVSd 1.3 cm Aorta Ao Rtd 3.1 cm (zsc 0.5) Ao Asc 2.9 cm (zsc 1.1) LVOT LVOT 1.8 cm LVOTArea 2.54 cm2 Ratios IVS RA Single Plane Right Atrium MO 17.6 mm Right Atrium Sy 44.9 ml Right Atrium Sy 61 mm Right Atrium Sy 21.3 ml/m2 Right Atrium Sy 18.1 cm2 MMODE Ratios LA/Ao 1.34 (0.87-1.1)* Aorta Ao Rt 2.9 cm (2-3.7) Left Atrium LAIDs 3.9 cm TA Tricuspid Annul 17.4 mm <Electronic Signature> 04/06/2024 11:41 AM Jaciel Palmer M.D. us Jaciel Palmer MD ECHO Final Resul t * (ABNORMAL) LIPID PANEL (04/06/2023 12:06 PM CDT) CHOLESTEROL 107 <200 MG/DL 04/06/2023 12:58 PM T [facility] TRIGLYCERIDES 94 <150 MG/DL 04/06/2023 12:58 PM T [facility] HDL 24(L) >40.0 MG/DL 04/06/2023 12:58 PM T [facility] LDL (CALCULATED) 64 <100 MG/DL 04/06/20 12:58 PM T [facility] NON HDL CHOLESTEROL 83 <130 MG/DL 04/06 12:58 PM [facility] CHOL/HDL RATIO 4.5 0.0 - 4.5 04/06/2023 12:58 PM [facility] VLDL CALCULATION 19 5 - 55 MG/DL 04/06/2023 12:58 PM [facility] LIPID INTERPRETATION 04/06/2023 12:58 PM T [facility] Comment: [facility]ENS[facility] REPORT RECOMMENDATIONS: ?ADULT ?CHILD ??LOW RISK: ?CHOLESTEROL ? <200 ? <170 ?TRIGLYCERIDE ?<150 ?--- ?HDL ? >=60 ?--- ?LDL ? <100 ? <110 ??BORDERLINE: ?CHOLESTEROL ? 200-239 ?? 170-199 ?TRIGLYCERIDE ?150-199 ? --- ?HDL ?40-59 ?--- ?LDL ? 100-159 ?? 110-129 ??HIGH RISK: ?CHOLESTEROL ? >=240 ?>=200 ?TRIGLYCERIDE ?>=200 ? --- ?HDL ?<40 ?--- ?LDL ? >=160 ?>=130 04/06/2023 12:0 6 PM CDT us Angelica Santana OFFICE SERVICES ASSOCIATE LABORATORY Final Result [facility] [address] [place] [id number], from Last 3 Months or Most Recently Relevant to Health Maintenance Advance Directives * Full Code (Latest Code Status on File) Date Activated Date Inactivated Comments 06/10/2023 1:20 AM 06/13/2023 3:36 PM * Full Code Date Activated Date Inactivated Comments 02/21/2020 11:49 PM 02/22/2020 3:05 PM Care Teams Senior Php Software Developer Relationship Specialty Start Date End Date None, Provider, MD PCP - General UNKNOWN PHYSICIAN SPECIALTY 12/16/23
--- OUTSIDE RECORDS SUMMARY | 2024-07-03 19:09 | XMS_ITS | Encounter Summary ---
Author Organization [facility] Address [address] [place] [address] Phone Care Team Providers Care Customer Care Coordinator Name Role Phone MakennaAditya Primary Care Provider [phone] Brian Rangel DO Unavailable [phone] Chris Doll DO Unavailable [phone] Encounter Details Date Type Department Care Team (Late st Contact Info) Description 11/04/2020 Telephone [facility] [address] [place] [address] Brian Rangel, DO [address] [place] [address] Social History Tobacco Use Types Packs/Day Years Used Date Smoking Tobacco: Every Day Cigarettes Smokeless Tobacco: Never Comments:pt reports she is r latoya to quit, but needs assistance Alcohol Use Standard Drinks/Week Comments Never 0 (1 standard drink = 0.6 oz pur e alcohol) PHQ-2 Answer Date Recorded Total Score - Questions 1-9 0 09/04 Comments No Sex and Gender Information Value Date Recorded Sex Assigned at Not on file Legal Sex Female 7:52 AM CDT Gender Identity Not on file Sexual Orientation Not on file documented as of this encounter Miscellaneous Notes * Telephone Encounter - Farida Jefferson - 11/04/2020 9:24 AM CDT Patient called and unable to make appt today she is rescheduled to next week. documented in this encounter Plan of Treatment Not on file documented as of this encounter Visit Diagnoses Not on filedocumented in this encounter Additional Health Concerns Infection Onset Date Last Indicated Resolved Time MRSA 01/03/2021 01/03/2021 Assessment Noted Time PHQ-9 Depression Total Score: 0 09/17/19 21 1:35 PM CDT documented as of this encounter Care Teams Customer Care Coordinator Relationship Specialty Start Date End Date Aditya Mensah, PARMJIT [address] [place] [id number] PCP - General Physician School Bus Inspector 04/26/18 Brian Rangel DO [address] [place] [phone] Consulting Physician Oncology 08/14/20 Chris Doll DO [facility] [address] Obstetrics & Gynecology 08/14/20 documented as of this encounter
--- OUTSIDE RECORDS SUMMARY | 2024-07-03 19:09 | XMS_ITS | Clinical Summary ---
Author Organization [facility] Address [address] [place] [address] Phone Care Team Providers Care Electrical Troubleshooter Name Role Phone Aditya Mensah Susu PARNELL Primary Care Provider [phone] Brian Rangel DO Unavailable [phone] Chris Doll DO Unavailable [phone] Allergies Active Allergy Reactions Criticality Noted Date Comments Egg-Derived Products Hives Medium 08/15/2017 Lisinopril Other (see Comments) 08/26/2020 Penicillins Hives 04/02/2019 Sulfa Antibiotics Anaphylaxis 04/02/2019 Medications HYDROcodone-ac etaminophen (NORCO) 5-325 MG Tablet Take 1 Tab by mouth every 6 hours as needed for Moderate or more severe pain. 10 Tab 9 Active Additional Information Patient not taking.Reported on 09/16/2020 albuterol 108 (90 Base) MCG/ACT Aerosol Solution INHALE 2 PUFFS BY MOUTH EVERY 4 HOURS NEEDED 0 Active amLODIPine (NORVASC) 10 MG Tablet TAKE 1 TABLET BY MOUTH ONCE DAILY 0 Active atenolol (TENORMIN) 50 MG Tablet TAKE 1 TABLET BY MOUTH ONCE DAILY 0 Active atorvastatin (LIPITOR) 80 MG Tablet TAKE 1 TABLET BY MOUTH ONCE DAILY AT NIGHT 0 Active clopidogrel (PLAVIX) 75 MG Tablet TAKE 1 TABLET BY MOUTH ONCE DAILY 1 Active esomeprazole (NexIUM) 20 MG CAPSULE DELAYED RELEASE Take 20 mg by mouth. Active hydrocortisone 2.5 % Cream 1 Active hydrOXYzine (ATARAX) 25 MG Tablet TAKE 1 TABLET BY MOUTH THREE TIMES DAILY NEEDED 1 Active nitroGLYCERIN (NITROSTAT) 0.4 MG SL Tablet nitroglycerin 0.4 mg sublingual tablet DISSOLVE ONE TABLET UNDER THE TONGUE EVERY 5 MINUTES NEEDED FOR CHEST PAIN. DO NOT EXCEED A TOTAL OF 3 DOSES IN 15 MINUTES 0 Active hydrOXYzine (ATARAX) 50 MG Tablet Take 1 Tablet by mouth every 6 hours as needed for Itching. 30 Tablet 1 Active HYDROcodone-ac etaminophen (NORCO) 5-325 MG Tablet Take 1-2 Tablets by mouth every 6 hours as needed for Moderate or more severe pain. 12 Tablet 1 Active Active Problems Problem Noted Date Diagnosed Date IVON III (vulvar intraepithelial neoplasia III) 0 09/16/2020 Immunizations Immunization Administration Dates Next Due TDAP Vaccine 06/14/2014 Family History Medical History Relation Name Comments Hypertension Brother Cancer Father Hypertension Father Heart Disease Maternal Grandfather Heart Disease Maternal Grandmother Cancer Mother Stroke Mother Cancer Paternal Grandfather Heart Disease Paternal Grandfather Heart Disease Paternal Grandmother Relation Name Status Comments Brother Father Maternal Grandfather Maternal Grandmother Mother Other [place] Paternal Grandfather Paternal Grandmother Social History Tobacco Use Types Packs/Day Years Used Date Smoking Tobacco: Every Day Cigarettes Smokeless Tobacco: Never Tobacco Cessation:Ready to Q uit: Yes Comments:pt reports she is ready to quit, but needs assistance Alcohol Use [...] Sign Reading Time Taken Comments Blood Pressure 142/70 02/04/2022 12:00 PM CDT Pulse 69 02/04/2022 12:15 PM CDT Temperature 36.7 ??C (98 ??F) 02/04/2022 11:06 AM CDT Respiratory Rate 18 02/04/2022 11:06 AM CDT Oxygen Saturation 96% 02/04/2022 12:15 PM CDT Inhaled Oxygen Concentration - - Weight 99.8 kg (220 lb) 02/04/2022 11:06 AM CDT Height 170.2 cm (5' 7 ) 02/04/2022 11:06 AM CDT Body Mass Index 34.46 02/04/2022 11:06 AM CDT Plan of Treatment Health Maintenance Due Date Last Done Comments Hepatitis C Virus (HCV) Screening 1970 Hepatitis B Immunization (1 of 3 - 19+ 3-dose series) 12/02/1990 Pap Smear 12/02/1992 Cervical Cancer Screening (CCS) 12/02/2001 HPV/Cotest 12/02/2001 Colonoscopy 12/02/2016 Colorectal Cancer Screening 12/02/2016 Cologuard 12/02/2021 Immunochemical Fecal Occult Blood 12/02/2021 Mammogram 12/02/2021 Pneumococcal Immunization (5 0+ years) (1 of 1 - PCV) 12/02/2021 Zoster Immunization (1 of 2) 12/02/2021 Influenza Immunization (#1) 2024 SARS-COV-2 Immunization (1 - season) 2024 Respiratory Syncytial Virus (RSV) Immunization (Adult) (1 - 1-dose 75+ series) 12/02/2046 DTaP/Tdap/Td Immunization Discontinued 06/14/2014 Meningococcal Immunization (ACWY) Aged Out No longer eligible based on patient's age to complete this topic Pneumococcal Immunization Combined Aged Out No longer eligible based on patient's age to complete this topic Rotavirus Immunization Aged Out No lo nger eligible based on patient's age to complete this topic Additional Health Concerns Infection Onset Date Last Indicated MRSA 01/03/2021 01/03/2021 Insurance MEDICAID [place] MEDICAID [employer] Care Teams Electrical Troubleshooter Relationship Specialty Start Date End Date Aditya Mensah PAC [address] [place] [id number] PCP - General Physician Keymodule Assembly Supervisor 04/26/18 Brian Rangel DO [address] [place] [phone] Consulting Physician Oncology 08/14/20 Chris Doll DO [address] [place] [id number] Obstetrics & Gynecology 08/14/20
--- OUTSIDE RECORDS SUMMARY | 2024-07-03 19:09 | XMS_ITS | Referral Summary ---
Author Organization [facility] [employer] Address [address] [place] [address] Care Team Providers Care Salesforce Specialist Name Role Phone Unavailable Primary Care Provider Unavailabl e Source Comments [facility] [employer],non-owned Affiliates and Associated Physician Practices is amultiple site organization consisting of ambulatory clinics and hospital sitesin [place], [place], [place] and [place]. This disclosure is being madepursuant to the Care Everywhere program and may not contain all information available regarding this patient. Last updated 18.[facility] [employer] Social History Tobacco Use Types Packs/Day Years Used Date Smoking Tobacco: Never Assessed Sex and Gender Information Value Date Recorded Sex Assigned at Not on file Gender Identity Not on file Sexual Orientation Not on file Plan of Treatment Not on file Procedures Procedure Name Priority Date/Time Associated Diagnosis Comments MAMMO BILAT DIAGNOSTIC Routine 02/12/2016 1:18 PM CDT Breast lump from Last 3 Months or Most Recently Relevant to Health Maintenance Results * VIRIDIANA DIAG DIRECT DIG IMAGE BILATERAL G0204 (02/12/2016 1:18 PM CDT) Anatomical Region Laterality Modality Bilateral Mammography 02/12/2016 1:47 PM CDT Narrative 02/12/2016 4:00 PM CDT EXAMINATION: Digital bilateral diagnostic mammogram and right breast ultrasound on 02/12/2016. Low-dose digital breast tomosynthesis examination was performed with 2D and 3D acquisitions. Computer assisted detection was utilized. PRIOR: This is the patient's baseline mammogram and breast ultrasound. No previous breast imaging studies are available for comparison. HISTORY: 45-year-old female with palpable right breast mass for 3 days. Is present on the skin over this region. BREAST PARENCHYMAL DENSITY: There are scattered areas of fibroglandular density. RISK ASSESSMENT CALCULATION: The risk assessment was not completed by the patient. FINDINGS: Right breast: An oval, circumscribed, fat-containing mass is present in the medial breast approximately 7 cm from the nipple near the skin surface adjacent to the palpable marker, best seen on tomosynthesis images 3/65 on the LM view and 22/65 on the CC view. No architectural distortion or microcalcifications are evident on 2-D mammogram or tomosynthesis images. Ultrasound of the right breast demonstrates a superficial hyperechoic area measuring approximately 2.2 x 1.8 x 0.8 cm in the 3 to 4:00 position 7 cm from the nipple. This corresponds to the palpable mass and findings on mammography. These findings represent fat necrosis. Left breast: No suspicious masses, areas of architectural distortion or microcalcifications are evident on 2D mammogram or tomosynthesis images. ASSESSMENT: BIRADS Category 2: Benign finding(s). RECOMMENDATION: Bilateral screening mammogram in one year. Findings and recommendation were discussed with the patient by Dr. Maloney. Thank you for allowing us to participate in the care of your patient. [facility] utilizes [email or web address] as a reminder system to notify patients of their next recommended mammogram. I, Rhonda Webster, have personally reviewed the images and I agree with this report. Ginette Bro MD MAMMO ORDERABLES from Last 3 Months or Most Recently Relevant to Health Maintenance
--- OUTSIDE RECORDS SUMMARY | 2024-07-03 19:09 | XMS_ITS | Referral Summary ---
Author Organization [facility] Address [address] [place] [address] Care Team Providers Care Assistant Teacher Name Role Phone Danyelle Cristobal MD Unavailable [phone] Antonio Moon DO Unavailable [phone] Aditya Mensah Primary Care Provider [phone] Mike Arias MD Unavailable [phone] Miscellaneous, Not In File Unavailable Unava ilable Allergies Active Allergy Reactions Criticality Noted Date Comments Egg Hives Medium 08/15/2017 Epoxy Resin Rash Medium 08/26/2022 Latex Hives Medium 08/26/2022 Penicillins Hives,Swelling Medium Sulfa (Sulfonamide Antibiotics) Anaphylaxis High Medications albuterol HFA (PROVENTIL HFA,VENTOLIN HFA,PROAIR HFA) 90 mcg/actuation inhaler Inhale 2 puffs every 4 (four) hours as needed for wheezing 1 Inhaler 9 Active amLODIPine (NORVASC) 10 mg tablet Take 1 tablet (10 mg total) by mouth daily 90 tablet 2 0 Active Additional Information Patient taking differently:10 mg oralEvery morning, Reported on 2021 atorvastatin (LIPITOR) 80 mg tablet Take 1 tablet (80 mg total) by mouth nightly 90 tablet 2 0 Active atenoloL (TENORMIN) 50 mg tablet Take 1 tablet (50 mg total) by mouth daily 90 tablet 2 0 Active Additional Information Patient taking differently:50 mg oralEvery morning, Reported on 2021 nitroglycerin (NITROSTAT) 0.[address] 0.4 mg under the tongue every 5 (five) minutes as needed 0 Active aspirin 81 mg chewable tabletIndicatio ns:Chest Pain Take 1 tablet (81 mg total) by mouth daily 30 tablet [address] (NexIUM) 40 mg capsule Take 1 capsule (40 mg total) by mouth daily before breakfast 30 capsule 1 3 Active triamcinolone (KENALOG) 0.1 % cream Apply topically 2 (two) times a day 30 g 3 Active ketorolac (TORADOL) 10 mg tablet Take 1 tablet (10 mg total) by mouth every 6 (six) hours as needed for pain 20 tablet 4 Active lidocaine viscous (XYLOCAINE) 2 % solution Apply 15 mL to the mouth or throat every 3 (three) hours 200 mL 4 Active Active Problems Problem Noted Date Diagnosed Date Other chest pain 08/25/2022 Assessment & Plan (08/26/2022 11:52 AM CDT): Patient has been having nonspecific chest pain and shortness breath over 2 days prior to presentation. Has been taking Nexium for symptomatic relief. Does not use nitroglycerin at home. ECG in the emergency department was normal, except for frequent PVCs. Patient uses marijuana and tobacco on a daily basis. This puts patient at high risk for ACS but could very well be gastric related. - pending stress test, echocardiogram, and cardiology evaluation - cardiac consultation - daily BMP CBC Mag and phos - aspirin daily - p.r.n. nitro Cellulitis of face 05/24/2022 OA (osteoarthritis) 05/24/2022 Dental caries extending into pulp 04/05/2022 Acute cholecystitis 11/29/2021 Anxiety 01/23/2021 Hidradenitis suppurativa 01/23/2021 Overview (01/23/2021): History of axillary boils as well as inguinal, genital, and perianal boils. Numerous healing pock rose along lower abdomen, pannus, and inguinal folds. Plan: - Referral to dermatology placed today. 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 Campa with reported LSIL/RONEY I -09/19/20: colposcopy low grade, unsatisfactory with no ECC or cervical biopsy performed, pap NILM/HPV 18/45+ (endocervical/TZ sample present). 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 Campa w/ path IVON III. Path reviewed at [facility] and in agreement. -12/26/20: Coalescent papules with purplish hue along medial surfaces of bilateral labia noted on exam. Risks/benefits/alternatives of laser ablation and possible biopsies discussed. Pt consented for procedure. -01/23/21: Pt re-consented for EUA/Vulvar CO2 laser, possible vulvar biopsy, and hysteroscopy/D&C today. Pt will attempt to quarantine despite this week for father. Plan: -To OR for EUA, vulvar CO2 laser, possible vulvar biopsy, and D&C 02/03/21 -Referral to colorectal surgery placed today given concern for and risk of ronaldo- anal involvement with IVON 3. Adrenal adenoma, left 01/24/2020 Assessment & Plan (08/05/2021 10:27 AM CONSTRUCTION MANAGER): Left adrenal adenoma detected in early 2017 the adenoma showed up on MRI on 04/18/19- 3.0 cm Stable in size on CT scan on 10/11/19 and 08/22/20 ??patient had normal electrolytes on 02/23/21 [place]'s was rules out with 1 mg Dexamethasone suppression test on 02/02/20 Serum metanephrines were also normal Normal Aldosterone and PRA on 08/23/20 Plan: ?? The diagnosis reviewed with patient Check 1 mg dexamethasone suppression test If condition stable then will be checked again in one year. Assessment & Plan (08/04/2020 10:23 AM CONSTRUCTION MANAGER): Left adrenal adenoma detected in early 2017 the adenoma showed up on MRI on 04/18/19- 3.0 cm and again on CT scan on 10/11/19 Measuring 3.3 cm ??patient had normal electrolytes on 02/22/20 Madhu's was rules out with 1 mg Dexamethasone suppression test on 02/02/20 Serum metanephrines were also normal Plan: ?? Explained to patient the benign nature of the mass based on MRI and CT findings. We will repeat CT scan of the adrenal gland Check labs as ordered. If condition stable then will be checked again in one year. Assessment & Plan (01/24/2020 3:21 PM CDT): Left adrenal adenoma detected in early 2017 the adenoma showed up on MRI on 04/18/19- 3.0 cm and again on CT scan on 10/11/19 Measuring 3.3 cm Plan: Explained to patient the benign nature of the mass based on MRI and CT findings. We will evaluate adrenal hormones to rule out madhu's with 1 mg dexamethasone suppression test Will check for pheochromocytoma and rule out hyper aldosteronism Internal hemorrhoids 12/05/2019 Assessment & Plan (12/05/2019 10:40 AM CDT): Pt asked about what to do about internal hemorrhoids. She denies any blood in the stool at this time but has had it is in the past. Advised to use fiber supplement daily and can use prep H suppositories for int hemorrhoids and prep H cream for external. Can also use Sitz baths or tucks pads along with Prep H. Right upper quadrant pain 10/22/2019 Overview (12/26/2020): Added automatically from request for surgery [id number] Assessment & Plan (12/05/2019 10:38 AM CDT): Colonoscopy showed diverticulosis, one adenoma polyp, and internal hemorrhoids. There was no evidence of active diverticulitis. Pt says she continues to get this RLQ pain that starts with her menstrual period and stops once her cycle is over. No GI source of pain. Pt advised to see clerical proofreader as this is likely clerical proofreader origin given it only occurs during menstruation. Assessment & Plan (10/22/2019 11:11 AM CDT): Occurs only during her menstrual cycle. She gets sharp pain in RLQ that radiates into RL back and shoots down right leg. She says the pain stops once her menstrual cycle is over. She also noted that menstrual cycle has been lasting longer and heavier lately. This has been occurring for about 14 years. Likely related to clerical proofreader issue but will do colonoscopy to rule out GI issues. Pt encouraged to make clerical proofreader appt. She says she has an appointment in January. Acute diverticulitis 10/22/2019 Overview (10/22/2019): Added automatically from request for surgery [id number] Assessment & Plan (10/22/2019 11:08 AM CDT): CT showed possible indications of diverticulitis. Given pain is in opposite side of her diverticulosis and that this has been occurring for 14 years only during menstrual period, unlikely this is diverticulitis. She was given abx from ER and finished these yesterday. Pain stopped with last day of menstrual period last Tuesday. We will wait about 6 weeks from resolution of symptoms just in case she had case of diverticulitis. Class 1 obesity due to exces s calories without serious comorbidity in adult 10/22/2019 Assessment & Plan (08/26/2022 11:54 AM CDT): BMI:34.77 - discussed risks of obesity and association with chronic medical problems including HTN, DM, and JOHNY - advised patient on importance of maintaining a diet and exercise regimen including cardiovascular and weight-bearing exercises - nutrition consultation Coronary artery disease invo lving nooksack coronary artery of nooksack heart without angina pectoris 09/26/2019 Assessment & Plan (08/26/2022 11:52 AM CDT): Continue as planned under other chest pain Mixed hyperlipidemia 09/26/2019 Assessment & Plan (08/26/2022 11:52 AM CDT): Will continue patient's Lipitor. Smoker 09/26/2019 Overview (01/23/2021): Continues to smoke a lot given recent of her dad yesterday. Not interested in quitting. May be interested later. Plan: - continue to address smoking cessation at each visit Bilateral carotid artery stenosis 09/26/2019 Marijuana use 03/10/2019 Assessment & Plan (03/10/2019 12:08 AM CDT): Patient also uses marijuana. She states sometimes she vapes. Patient advised to avoid E cigarettes due to risk of serious pulmonary illness associated with e cigarette use. Status post insertion of shaun g-eluting stent into left anterior descending (LAD) artery 09/22/2018 Overview (09/26/2019): Distal LAD at origin of 3rd diagonal, 3.5 x 8 mm Xience MIAH S/P drug eluting coronary stent placement 2018 Overview (09/26/2019): Origin of 3rd diagonal 2.5 x 12 mm synergy MIAH Presence of drug-eluting blane nt in left circumflex coronary artery 09/22/2018 Overview (09/26/2019): Distal circumflex, 2.25 x 12 mm synergy MIAH S/P PTCA (percutaneous transluminal coronary ang ioplasty) 09/22/2018 Overview (09/26/2019): To occluded 2nd diagonal, 2 mm vessel Chest pain 09/05/2018 Assessment & Plan (03/10/2019 12:06 AM CDT): Concerning for angina. Patient stopped taking all of her medications including aspirin and Plavix about a month ago. She states she was also supposed to be taking Lopressor, Norvasc and a cholesterol pill. She states she stopped all her medications due to financial reasons as she could no longer afford them. She states she does not have insurance. Will resume all her home medications. Will continue to trend troponins. Initial troponin was negative. EKG showed a sinus rhythm. Will also consult social work for help with home medications at discharge. Will hold off on cardiology consult at this time. Patient had nitropaste on however developed an itchy rash. Nitropaste was discontinued. Will order sublingual nitroglycerin. Patient was counseled extensively on the importance of taking her medications especially her aspirin and Plavix given her stents for at least 1 year to prevent blockage of the stents as it could be dangerous and fatal. Patient was advised to notify her doctors that she is having difficulty affording her medications and to see if perhaps they had any samples they could give her. Assessment & Plan (09/05/2018 10:24 PM CDT): Atypical chest pain not worsened with activity and occurs at rest. Seems to worsen with deep breathing. She describes it as a burning but it radiates to her arms. Nitroglycerin did not help and only gave her headache. Patient had a negative stress test in 2013. She was seen by Cardiology and stress test was ordered along with echo. Inflammatory etiology suspected and patient was started on colchicine and ibuprofen by Cardiology. Patient has a history of gastric ulcers a year ago will start patient on b.i.d. PPI. Will make patient NPO after midnight. Troponins negative x2. Hypertensive urgency 09/05/2018 Assessment & Plan (09/05/2018 10:31 PM CDT): Patient was recently started on clonidine 0.2 [...] as needed. Continue with p.r.n. IV hydralazine. Ascites 08/15/2017 Assessment & Plan (08/15/2017 11:31 AM CDT): Unclear etiology. Differential diagnosis is broad and may include portal hypertension due to nonalcoholic steatohepatitis or other etiologies cirrhosis, intra- abdominal or intrapelvic cancer. Will do ultrasound-guided paracentesis, Gram stain and cell count of the fluid to differentiate if there is any spontaneous bacterial peritonitis because patient is having abdominal pain, for fluid culture, cytology, albumin, protein and LDH. Patient has been empirically started on ceftriaxone and metronidazole by emergency physician, will keep on distant antibiotics for now. GI consultation obtained and pending. Also I am ordering ultrasound of the right upper quadrant, spleen, pelvic organs. Periumbilical pain 08/15/2017 Assessment & Plan (08/15/2017 11:34 AM CDT): Unclear etiology. Will start proton pump inhibitors, GI consultation obtained. Will keep her NPO until ultrasound and a paracentesis is completed. CT scan shows some colitis changes and will continue antibiotics for this. Bilious vomiting with nausea 08/15/2017 Assessment & Plan (08/15/2017 11:39 AM CDT): Unclear etiology, again differential diagnosis is broad. Will rule out any gallstone cholecystitis , gastritis, colitis, pyelonephritis. Workup is pending. Will start proton pump inhibitor and keep on clear liquid diet after the test. Diarrhea of presumed infectious origin 8 Assessment & Plan (08/15/2017 11:39 AM CDT): Will collect stool studies. Continue metronidazole and Rocephin. Essential hypertension 08/15/2017 Assessment & Plan (08/26/2022 11:53 AM CDT): Patient's blood pressure has been within normal limits. - will continue patient's amlodipine and atenolol Assessment & Plan (08/05/2021 10:26 AM CONSTRUCTION MANAGER): Controlled with medication Complicated with CAD- had stent placed. ?? Plan: ?? Continue same medication and follow up with PCP and cardiology Assessment & Plan (08/04/2020 10:24 AM CONSTRUCTION MANAGER): Controlled with medication Complicated with CAD- had stent placed. ?? Plan: ?? Continue same medication and follow up with PCP and cardiology Assessment & Plan (01/24/2020 3:23 PM CDT): Controlled with medication Complicated with CAD- had stent placed. Plan: Continue same medication and follow up with PCP and cardiology. Assessment & Plan (08/15/2017 11:40 AM CDT): She does not take any medications at home her blood pressure is somewhat controlled, could be a better control with medications will start her on a Norvasc when she tolerates p.o. better. Iron deficiency anemia 08/15/2017 Assessment & Plan (08/26/2022 11:53 AM CDT): Long history of iron deficiency anemia. Patient would benefit from iron supplementation. Assessment & Plan (03/10/2019 12:08 AM CDT): Hemoglobin appears stable from prior. Continue to monitor. Assessment & Plan (09/05/2018 10:21 PM CDT): Chronic issue. Hemoglobin is at her baseline. Continue to monitor. Assessment & Plan (08/15/2017 11:43 AM CDT): This is microcytic anemia, suspected to be iron deficient. Workup is pending. Tobacco dependence syndrome 10/20/2013 Overview (09/09/2016): TOBACCO USE DISORDER Assessment & Plan (08/26/2022 11:53 AM CDT): #of pack years: 15 - Patient has been educated about the risks of smoking and benefits of stopping. Patient has been advised to quit, and if that fails, to discuss pharmacological options with their PCP. - Discussed potential effects of tobacco including lung cancer, COPD, heart disease, and stroke - Nicotine patch daily Assessment & Plan (03/10/2019 12:03 AM CDT): Patient currently smoking 1 pack per day. Requesting nicotine patch. Will order. Assessment & Plan (09/05/2018 10:20 PM CDT): Two packs per day and has done so since age 13. Patient currently wants to smoke a cigarette. Patient advised cannot smoke in the hospital. Will order nicotine patch. Adiposity 10/20/2013 Overview (09/10/2016): OBESITY NOS Gastric ulcer Assessment & Plan (10/22/2019 11:11 AM CDT): EGD back in 2018 showed gastric ulcer. She was treated for this. No symptoms currently worrisome for ulcer. Abnormal stress test Resolved Problems Problem Noted Date Diagnosed Date Resolved Date Dental abscess 04/05/2022 05/25/2022 Social History Tobacco Use Types Packs/Day Years Used Date Smoking Tobacco: Every Day Cigarettes 0.7 43.1 Started: 1981 Smokeless Tobacco: Never Tobacco Cessation:Ready to Q uit: No; Counseling Given: No Comments:Refused Alcohol Use Standard Drinks/Week Comments Not Currently 0 (1 standard drink = 0.6 oz pur e alcohol) Once per month Social Connection and Isolat ion Panel [NHANES] Answer Date Recorded In a typical week, how many times do you talk on the phone with family, friends, or neighbors? More than three times a week 05/24/2022 How often do you get togethe r with friends or relatives? More than three times a week 05/24/2022 How often do you attend chur ch or holiness services? Never 05/24/2022 Do you belong to any clubs o r organizations such as religious groups, unions, fraternal or athletic groups, or school groups? No 05/24/2022 How often do you attend meet ings of the clubs or organizations you belong to? Never 05/24/2022 Are you , , di vorced, , never , or living with a partner? 05/24/2022 AUDIT-C Answer Date Recorded Q1: How often do you have a drink containing alc ohol? Never 11/29/2021 Average Number of Drinks Not on file 022 Frequency of Binge Drinking Not on file 11/05 Overall Financial Resource Strain (CARDIA) Answe r Date Recorded How hard is it for you to pa y for the very basics like food, housing, medical care, and heating? Very hard 05/24/2022 PHQ-2 Answer Date Recorded PHQ-2 Total Score (If total score is 3 or more points, staff should administer the PHQ-9) 0 11/30/2021 Hunger Vital Sign Answer Date Recorded Within the past 12 months, y ou worried that your food would run out before you got the money to buy more. Often true 05/24/20 22 Within the past 12 months, t he food you bought just didn't last and you didn't have money to get more. Often true 05/24/2022 PRAPARE - Transportation Answer Date Re corded In the past 12 months, has l ack of transportation kept you from medical appointments or from getting medications? Yes 05/06 In the past 12 months, has l ack of transportation kept you from meetings, work, or from getting things needed for daily living? Yes 05/24/2022 Housing Stability Vital Sign Answer Martell e Recorded In the last 12 months, was t here a time when you were not able to pay the mortgage or rent on time? Yes 05/24/2022 In the last 12 months, how many places have you lived? 1 05/24/2022 In the last 12 months, was t here a time when you did not have a steady place to sleep or slept in a [place] [facility] [place] (including now)? No 05/24/2022 Personal Safety Answer Date Recorded Have you ever been in or are you currently in a harmful physical or emotional relationship or is someone making you feel afraid or unsafe? Denies 10/09/2023 Education Answer Date Recorded What is the highest level of school you have completed or the highest degree you have received? Some college, no degree 05/24/2022 Comments No Sex and Gender Information Value Date Recorded Sex Assigned at Not on file Legal Sex Female 12:30 AM CONSTRUCTION MANAGER Gender Identity Female 01/17/2020 4:14 PM CDT Sexual Orientation Straight 01/17/2020 4: 14 PM CDT Last Filed Vital Signs Vital Sign Reading Time Taken Comments Blood Pressure 135/71 10/09/2023 2:03 PM CDT Pulse 63 10/09/2023 2:03 PM CDT Temperature 36 ??C (96.8 ??F) 10/09/2023 2:03 PM CDT Respiratory Rate 18 10/09/2023 2:03 PM CDT Oxygen Saturation 99% 10/09/2023 2:03 PM CDT Inhaled Oxygen Concentration - - Weight 99.8 kg (220 lb) 10/09/2023 2:03 PM CDT Height 170.2 cm (5' 7 ) 10/09/2023 2:03 PM CDT Body Mass Index 34.46 10/09/2023 2:03 PM CDT Plan of Treatment Not on file Medical Devices Implanted Type Area Peoplesoft Programmer Device Identifier Shelf Expiration Date Model / Serial / Lot [employer] [id number] Synergy 2.5mm 12mm 144cm Radiopaque 1 Access Port Inflation Lumen - [id number] Implanted:Qty: 1 on 09/07/2018 by Sulaiman Lynch MD at [facility] Stent [employer] 11/23/2019 [id number] / / [id number] [employer] [id number] System Coronary Stent Xience Isabel Everolimus L8 Mm Od3.5 Mm Rapid Exchange - [id number] Implanted:Qty: 1 on 09/07/2018 by Sulaiman Lynch MD at [facility] Stent [employer] 04/09/2019 [id number] / / [id number] [employer] [id number] Synergy 2.25mm 12mm 144cm Radiopaque 1 Access Port Inflation - [id number] Implanted:Qty: 1 on 09/07/2018 by Sulaiman Lynch MD at [facility] Stent [employer] 04/17/2020 [id number] / / [id number] Procedures Procedure Name Priority Date/Time Associated Diagnosis Comments PAP AND HIGH RISK HPV, REFLEX TO GENOTYPING Routine 09/19/2020 1:44 PM CDT COLONOSCOPY 11/28/2019 9:16 AM CDT SCREENING MAMMOGRAM BILATERAL W GEE Schedule Routine, Read Routine (OP Routine) 09/12/2017 11:29 AM CDT Screening breast examination HEPATITIS PANEL, ACUTE Routine 08/15/2017 12:57 PM CDT from Last 3 Months or Most Recently Relevant to Health Maintenance Results * Pap and High Risk HPV, reflex to Genotyping (09/19/2020 1:44 PM CDT) Pap test 09/19/2020 1:44 PM CDT 09/19/2020 3:35 PM CDT Narrative 10/03/2020 9:02 AM CDT [facility] results best viewed via link to PDF [facility] [place] [address] CYTOPATHOLOGY REPORT FINAL Patient Name: ??CASS TORRES Gender: ??F : ??1970 (Age: 49) Address: ??[address] [place], [place] ??[address] Hospital #: ??[id number] Service: ??Oncology Location: ??[facility] Patient Type: ??[facility] Ancillary Taken: ??09/19/2020 Received: ??09/19/2020 Accessioned: ??09/22/2020 Reported: ??10/03/2020 Physician(s): ??Jenn Marcial M.D. ?? FINAL INTERPRETATION SOURCE OF SPECIMEN: ? Liquid based Thin Prep pap with HPV STATEMENT OF ADEQUACY: ?- Satisfactory for evaluation ?- Endocervical cells/transformation zone sample present GENERAL CATEGORY: ?- Negative for squamous intraepithelial lesion or malignancy DESCRIPTION: ?- Fungal organisms morphologically consistent with kapil species Comments HPV Result: ??POSITIVE for high risk types of Human Papilloma Virus (HPV) RNA ? HPV 16 RNA result - Negative HPV 18/45 RNA result - Positive The high risk HPV probe detects the presence of HPV types: 16, 18, 31, 33, 35, 39, 45, 51, 52, 56, 58, 59, 66 and 68. ??These HPV tests were performed at [facility] in [place], [place] utilizing the Gen-Probe Aptima assay. This specimen has been rescreened in accordance with this laboratory's Manager Medical Affairs Program. 10/03/2020 09:02 TAY Renner, CT(ASCP)[facility] Report Electronically Reviewed and Signed Out By Marlen English M.S.,CT(ASCP) 10/03/2020 09:02:45 Cervicovaginal Cytology (Pap Test) Disclaimer: The Pap test is a screening test used to detect cervical cancer and its precursors; it is not a diagnostic procedure. False negative and false positive results do occur. Pap test results should be interpreted in the context of pertinent clinical information and biopsy results as indicated. Gross Description A. ??Liquid based Thin Prep pap with HPV: ??Cervical/vaginal - Screening ThinPrep ?? Clinical Diagnosis and History Last Menstrual Period: 09/04/20 Menstrual History: Irregular Cycles Contraceptive History: No Previous Atypia: LGSIL The patient is a 49 year old woman with history of cervical dysplasia. The HPV test was performed by [facility], [address] [place] [address]. Report Images and scanned documents, if included only viewable in PDF version The performance characteristics of some immunohistochemical stains, in-situ hybridization and fluorescence in-situ hybridization tests and immunophenotyping by flow cytometry cited in this report (if any) were determined by the Surgical Pathology Department at [facility] as part of an ongoing senior quality manager program and in compliance with federally mandated regulations drawn from the Clinical Laboratory Improvement Act of 1988 (CLIA '88). ??Some of these tests rely on the use of analyte specific reagents and are subject to specific labeling requirements by the [place] Food and Drug Administration. ??Such diagnostic tests may only be performed in a facility that is certified by the Department of Health and Human Services as a high complexity laboratory under CLIA '88. ??The FDA has determined that such clearance or approval is not necessary. ??This test is used for clinical purposes. ??It should not be regarded as investigational or for research. ??Nevertheless, federal rules concerning the medical use of analyte specific reagents require that the following disclaimer be attached to the report: This test was developed and its performance characteristics determined by the Surgical Pathology Department of [facility]. ??It has not been cleared or approved by the U. S. Food and Drug Administration. us Notinfile Unknown LAB CYTOLOGY ORDERABLES Final Result * COLONOSCOPY (11/28/2019 9:16 AM CDT) Anatomical Region Laterality Modality Other Narrative Procedure Note Danyelle Cristobal MD - 11/28/2019 9:16 AM CDT [facility] Patient Name: Cass Torres Procedure Date: 11/28/2019 9:16 AM Date of : 1970 Admit Type: Outpatient Age: 48 Gender: Female Attending MD: aDnyelle Cristobal M.D. Room: [facility] ENDOSCOPY ROOM 1 Note Status: Finalized Patient Profile: This is a 48 year old female. Patient has chronic intermittent complaints of pain in the right lower quadrant radiating to her right leg and it seems to correlate with her menstrual periods. Again the painis mainly during her menstrual periods. Sometimes thepain goes to the back. She had recent CT scan of theabdomen pelvis about 1 month ago which showed possiblesigmoid diverticulitis Procedure: Colonoscopy Indications: This is the patient's first colonoscopy, Abdominalpain in the right lower quadrant, Suspecteddiverticulitis Referring MD: NELLY Shannon Providers: Danyelle Cristobal M.D. Impression: - Diverticulosis in the entire examined colon, more prominent in the sigmoid colon. - One 10 mm polyp in the sigmoid colon, removed witha hot snare. Resected and retrieved. - Internal hemorrhoids. Recommendation: - Await pathology results. - Repeat colonoscopy in 3 years for screeningpurposes. - Continue present medications. - No pathology noted to explain the patient'ssymptoms of pain. Consider lumbosacral spine CT scan imagingand OBGYN evaluation Medicines: Monitored Anesthesia Care Complications: No immediate complications. Estimated Blood Loss: Estimated blood loss: none. Procedure: Pre-Anesthesia Assessment: - Prior to the procedure, a History and Physical was performed, and patient medications and allergieswere reviewed. The patient's tolerance of previous anesthesia was also reviewed. The risks and benefitsof the procedure and the sedation options and riskswere discussed with the patient. All questions were answered, and informed consent was obtained. Prior Anticoagulants: The patient has taken Plavix (clopidogrel), last dose was 4 days prior toprocedure. ASA Grade Assessment: II - A patient with mildsystemic disease. After reviewing the risks and benefits, the patient was deemed in satisfactory condition toundergo the procedure. The benefits, risks and alternatives of theprocedure and sedation were discussed and informed consent was obtained. All questions were answered. Please referto the signed informed consent document in the medical record. The scope was passed under direct vision.The Pediatric Colonoscope PCF-H190L [id number] was introduced through the anus and advanced to the the cecum, identified by appendiceal orifice andileocecal valve. The bowel preparation used was Miralax. The bowel preparation used was bisacodyl tablets. Bowel prep was administered using a split dose. Thequality of the bowel preparation was excellent. Findings: The perianal and digital rectal examinations were normal. The ileum appeared normal. The cecum appeared normal. Multiple small and large-mouthed diverticula were found in the entire colon. More significant diverticular changes noted with the sigmoid colon. No inflammatory changes noted. A 10 mm polyp was found in the sigmoid colon. The polyp was pedunculated. The polyp was removed with a hot snare. Resection and retrieval were complete. Internal hemorrhoids were found during retroflexion. The hemorrhoids were medium-sized. Electronically signed by Danyelle Cristobal M.D. Danyelle Cristobal M.D. 11/28/2019 9:59:56 AM Number of Addenda: 0 Note Initiated On: 11/28/2019 9:16 AM Procedure Code(s): --- Professional --- 58906, Colonoscopy, flexible; with removal of tumor(s), polyp(s), or other lesion(s) by snare technique Diagnosis Code(s): --- Professional --- K64.8, Other hemorrhoids D12.5, Benign neoplasm of sigmoid colon R10.31, Right lower quadrant pain K57.30, Diverticulosis of large intestine without perforation orabscess without bleeding CPT copyright 2017 [employer]. All rights reserved. The codes documented in this report are preliminary and upon content strategist reviewmay be revised to meet current compliance requirements. Recognized by the [employer] for promoting quality in endoscopy Danyelle Cristobal MD ENDOSCOPY PROCEDURES Final Result * Screening Mammogram Bilateral W Gee (09/12/2017 11:29 AM CDT) Anatomical Region Laterality Modality Breast Bilateral Mammography Addenda Addendum by Thom Castillo MD on 09/19/2017 3:24 PM CDT ADDENDUM #1 Comparison to previous mammogram at [facility] in [facility] on 02/12/2016 shows a similar pattern of scattered fibroglandular densities in the breasts bilaterally without interval changes suspicious for malignancy. ??The small group of very superficial calcifications in the lateral 9:00 right breast are old and unchanged. ??Recommend rescreening in one year. BI-RADS Category 2 Electronically signed by: Thom Castillo Jr., M.D. ORIGINAL REPORT - ADDENDUM ABOVE SCREENING MAMMOGRAM BILATERAL W GEE HISTORY: Encounter for screening mammogram for malignant neoplasm of breast. Family history of breast cancer (maternal great aunt). TECHNIQUE: 2 views of each breast were obtained with bilateral breast tomosynthesis. COMPARISON: None available. ??Previous mammogram at [facility] in [place], [place]; not brought today for comparison. FINDINGS: Scattered fibroglandular densities bilaterally. ??A ??group of of approximately 8 microcalcifications is located very superficially in the lateral 9 o'clock position of the right breast No dominant mass, skin thickening, nipple retraction or suspicious cluster of microcalcifications is otherwise seen. Digital technology was employed plus computer aided detection software (R2) was utilized in interpretation of these images. ??This facility utilizes a reminder system to notify patient's of yearly mammograms. IMPRESSION: 1. Very superficially located group of microcalcifications in lateral 9:00 right breast; likely dermal calcifications. ??Suggest correlation to previous mammogram. 2. ??No other findings suspicious for malignancy. BI-RADS 0--needs comparison with outside films. Electronically signed by: Thom Castillo Jr., M.D. Impressions 09/12/2017 11:45 AM CDT 1. Very superficially located group of microcalcifications in lateral 9:00 right breast; likely dermal calcifications. ??Suggest correlation to previous mammogram. 2. ??No other findings suspicious for malignancy. BI-RADS 0--needs comparison with outside films. Electronically signed by: Thom Castillo Jr., M.D. Narrative 09/12/2017 11:45 AM CDT SCREENING MAMMOGRAM BILATERAL W GEE HISTORY: Encounter for screening mammogram for malignant neoplasm of breast. Family history of breast cancer (maternal great aunt). TECHNIQUE: 2 views of each breast were obtained with bilateral breast tomosynthesis. COMPARISON: None available. ??Previous mammogram at [facility] in [place], [place]; not brought today for comparison. FINDINGS: Scattered fibroglandular densities bilaterally. ??A ??group of of approximately 8 microcalcifications is located very superficially in the lateral 9 o'clock position of the right breast No dominant mass, skin thickening, nipple retraction or suspicious cluster of microcalcifications is otherwise seen. Digital technology was employed plus computer aided detection software (R2) was utilized in interpretation of these images. ??This facility utilizes a reminder system to notify patient's of yearly mammograms. us Ryanne Aguila MD IMG MAMMO PROCEDURES Edited Result - Final * Hepatitis panel, acute (08/15/2017 12:57 PM CDT) Hep A IgM Negative Negative [facility] Comment:Testing performed by : [facility], [address] [place] [address], [id number] Hep B core IgM Negative Negative [facility] ([place] Comment:Testing performed by : [facility], [address] [place] [address], [id number] Hep C Ab Negative Negative [facility] ([place] Comment:Testing performed by : [facility], [address] [place] [address], [id number] HepBsAg Negative Negative [facility] ([place] Comment:Testing performed by : [facility], [address] [place] [address], [id number] Blood specimen (specimen) 08/15/2017 12:57 PM CDT 08/15/2017 7:02 PM CDT Narrative [facility] ([place]) - 08/15/2017 8:46 PM CDT us Kellie Maguire MD LAB MICROBIOLOGY - GENERAL OR DERABLES Final Result [facility] ([place] Department [place] [address] from Last 3 Months or Most Recently Relevant to Health Maintenance Insurance [facility] Advance Directives For more information, please contact: [phone] * Full Code (Latest Code Status on File) Date Activated Date Inactivated Comments 08/25/2022 7:55 PM 08/26/2022 10:14 PM * Full Code Date Activated Date Inactivated Comments 05/24/2022 12:59 AM 05/25/2022 5:32 PM * Full Code Date Activated Date Inactivated Comments 11/29/2021 1:08 PM 2021 5:54 PM * Full Code Date Activated Date Inactivated Comments 11/28/2019 8:33 AM 11/28/2019 2:59 PM * Full Code Date Activated Date Inactivated Comments 11/28/2019 8:33 AM 11/28/2019 8:33 AM Care Teams Assistant Teacher Relationship Specialty Start Date End Date Aditya Mensah PA [address] [place] [address] PCP - General Family Practice 05/23/22 Danyelle Cristobal MD Consulting Physician Gastroenterology 08/16/17 Antonio Moon DO [address] [place] [address] DR ROBB [address] [place] [id number] Cardiovascular Disease 09/07/18 Mike Arias MD [address] [place] [address] Resident Family Medicine 05/25/22 Miscellaneous, Not In File 08/26/22
--- OUTSIDE RECORDS SUMMARY | 2024-07-03 19:09 | XMS_ITS | Clinical Summary ---
Author Organization [facility] [employer] Address [address] [place] [place] [address] Care Team Providers Care Front Worker Name Role Phone Unavailable Primary Care Provider Unavailabl e Source Comments [facility] [employer],non-owned Affiliates and Associated Physician Practices is amultiple site organization consisting of ambulatory clinics and hospital sitesin [place], [place], [place] and [place]. This disclosure is being madepursuant to the Care Everywhere program and may not contain all information available regarding this patient. Last updated 18.[facility] [employer] Family History Medical History Relation Name Comments Cancer - Breast Maternal Aunt Relation Name Status Comments Maternal Aunt Social History Tobacco Use Types Packs/Day Years Used Date Smoking Tobacco: Never Assessed Sex and Gender Information Value Date Recorded Sex Assigned at Not on file Gender Identity Not on file Sexual Orientation Not on file Plan of Treatment Health Maintenance Due Date Last Done Comments COLOGUARD (AGES 45-75) - COL ON CA SCREENING 1970 COLON MONITORING 1970 COLONOSCOPY - COLON CA SCREENING 1971 CT COLONOGRAPHY - COLON CA SCREENING 1970 Colorectal Cancer Screening 1970 FIT - COLON CA SCREENING 1970 FLEX SIG - COLON CA SCREENING 1970 LIPID TESTING 1970 PAP SMEAR 1970 HIV SCREENING 12/02/1986 HEPATITIS C SCREENING 11/28/1989 DTAP/TDAP/TD VACCINES (1 - Tdap) 12/02/1990 HEPATITIS B VACCINE (1 of 3 - 19+ 3-dose series) 12/02/1990 MAMMOGRAM 02/11/2018 02/12/2016 PNEUMOCOCCAL VACCINE 50+ (1 of 1 - PCV) 12/02/2021 ZOSTER VACCINE (1 of 2) 12/02/2021 COVID-19 VACCINE (2023-2 5 season) 2024 INFLUENZA VACCINE (#1) 2024 DEPRESSION SCREENING 06/06/2024 HIB VACCINE Aged Out No longer eligi ble based on patient's age to complete this topic HPV VACCINE Aged Out No longer eligi ble based on patient's age to complete this topic MENINGOCOCCAL (Group B) VACCINE Aged Out No longer eligible based on patient's age to complete this topic MENINGOCOCCAL VACCINE Aged Out No shaggy randy eligible based on patient's age to complete this topic Procedures Procedure Name Priority Date/Time Associated Diagnosis [...] palpable marker, best seen on tomosynthesis images on the LM view and on the CC view. No architectural distortion [...] participate in the care of your patient. [facility] utilizes [employer] as a reminder system to notify patients of their next recommended mammogram. I, Rhonda Webster, have personally reviewed the images and I agree with this report. Ginette Bro MD MAMMO ORDERABLES from Last 3 Months or Most Recently Relevant to Health Maintenance
--- OUTSIDE RECORDS SUMMARY | 2024-07-03 19:09 | XMS_ITS | Data Portability ---
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 Plan of Treatment Reminders Order Date Submit Date Provider Last Modified By Organization Details Last Modified Time Details Appointments None recorded. Lab biopsy, tissue - endometrial biopsy 2022 [facility], [address] [place], [address], 3 22:33:21 FSH (follicle-s timulating hormone), serum 2022 023 [facility], [address] [place], [address], 3 11:11:11 estradiol, serum 2022 023 [facility], [address] [place], [address], 3 15:36:50 pap, LB 2022 023 [facility], [address] [place], [address], 3 13:36:53 HPV E6+E7 mRNA, qualitative PCR, cervix 2022 023 [facility], [address] [place], [address], 3 15:05:39 Referral None recorded. Procedures None recorded. Surgeries None recorded. Imaging US, transvagina l 2022 023 [email or web address] Not available 15:08:52 MAMMO, screening, digital, bilateral 2022 023 [email or web address] [facility]? S [facility], [address] [facility], [place], [address], 12:07:17 Medication Orders Provera 10 mg tablet 2022 023 [email or web address] 1 [facility], [address] [place], [address], 3 12:51:15 Provera 10 mg tablet 2022 023 [email or web address] 1 [facility], [address] [place], [address], 3 12:51:15 [facility]rium 200 mg [facility] [address] [place], [address], 12:52:12 Patient TargetsNo targets recorded. Patient Instructions Encounter Date Encounter Id Patient Instructions Last Modified By Organization Details Last Modified Time 03/21/2023 [id number] endometrial biopsy information [email or web address] Not available 03/21/2023 11:39:17 Reason for Referral None Reported. Results Created Date Observation Date Name Description Value Unit Range Abnormal Flag Note LastModifiedBy Organization Detail LastModifiedTime 03/25/20 23 03/25/2023 ESTRA DIOL estradiol 15 pg/mL normal Refer ence Range Folli cular Phase : 19-14 4 Mid-C ycle: 64-35 7 Lutea l Phase : 56-21 4 Postm enopa usal: < or = 31 Refer ence range estab lishe d on post- puber fredrick patie nt popul ation . No pre-p ubert al refer ence range estab lishe d using this assay . For any patie nts for whom low Estra diol level s are antic ipate d (e.g. males , pre-p ubert al child shan and hypog onada l/pos t-men opaus al femal es), the [facility] Estra diol, Ultra sensi tive, LCMSM S assay is recom alison d (orde r code 28338 ). Jeannine cordero note: patie nts being treat ed with the drug fulve stran t (Fasl odex( R)) have demon strat ed signi fican t inter feren ce in immun oassa y metho ds for estra diol measu remen t. The cross react ivity could lead to false ly eleva pancho estra diol test resul ts leadi ng to an inapp ropri ate clini sissy asses sment of estro gen statu s. [facility] order code [id number] -Estr adiol , Ultra sensi tive LC/MS /MS demon strat es negli gible cross react ivity with fulve stran t. NO COLLE CTION DATE RECEI YASMINE. WE HAVE USED THE DATE THE SPECI MEN WAS RECEI YASMINE BY THIS LABOR ATORY THE COLLE CTION DATE. IF THIS IS INCOR RECT, JEANNINE Cordero CONTGraciela CT CLIEN T SERVI GUS. PHONE NUMBE R: [phone] Not Available [facility] [address] [place], [address], 03/25/2023 15:36:50 03/21/20 23 03/22/2023 FSH FSH 5.5 mIU/m L Refer ence Range s are for femal es aged 18 years - Adult Lexis l Menst ruati ng Femal e: Folli cular phase : 2.5-1 0.2 mIU/m L Mid-C ycle Peak: 3.4-3 3.4 mIU/m L Lutea l phase : 1.5-9 .1 mIU/m L Pregn ant: <0.3 mIU/m L Post- menop ausal : 23.0- 116.6 mIU/m L Not Available [facility] [address] [place], [address], 03/22/2023 11:11:11 03/21/2003/23/2023 HPV HIGH RISK HPV high risk Negati ve negati ve normal The HPV High Risk assay is inten ded for use as co-te sting with cytol ogy and not as a subst itute for regul ar cervi sissy cytol ogy scree wilbert. This assay is not inten ded for use as a scree wilbert devic e for women under age 30 with lexis l cervi sissy cytol ogy. Not Available [facility] [address] [facility], [place], [address], 03/23/2023 15:05:39 03/21/2003/23/2023 TISSU E PATHO LOGY clinical information Abnor mal uteri ne bleed ing Not Available [address] [address] [place], [address], 03/23/2023 22:33:21 03/21/20 23 03/23/2023 TISSU E PATHO LOGY pathologist Vamsi clarke M.D., Board Certi fied in Anato memo Patho logy and Clini sissy Patho logy( elect artur sanchez) Not Available [facility] [address] [place], [address], 03/23/2023 22:33:21 03/21/20 23 03/23/2023 TISSU E PATHO LOGY A source Endom etriu m, biops y Not Available [facility] [address] [address] , [place], [address], 03/23/2023 22:33:21 03/21/2003/23/2023 TISSU E PATHO LOGY A gross description Speci men is recei yasmine in 10% neutr al buffe red forma jose, label ed with multi ple patie nt ident ifier s and consi sts of multi ple fragm ents of soft tissu e aggre gatin g to 2.0 x 1.4 x 0.3 cm, irreg ular in shape and varela-b rown in color . The speci men is entir melissa submi tted in one casse tte. Gross exam( s) perfo rmed at: [facility] [place] [address] [facility] [address], [place] [address] Labor atory Direc tor: NANDO Clarke MD Not Available [facility] [address], [address], 03/23/2023 22:33:21 03/21/2003/23/2023 TISSU E PATHO LOGY A diagnosis Fragm ents of prede cidua lized and/o r decid ualiz ed benig n endom etriu m (foca lly necro tic) with blood . Not Available [address], [address], 03/23/2023 22:33:21 03/21/2003/23/2023 TISSU E PATHO LOGY A comment Exoge nous hormo nal effec t canno t be ruled out. Pleas e corre late and follo w clini liz . Not Available [address], [address], 03/23/2023 22:33:21 03/21/2003/24/2023 THINP REP TIS PAP clinical information: normal None given Not Available [address], [address], 03/24/2023 13:36:53 03/21/2003/24/2023 THINP REP TIS PAP LMP: normal None given Not Available [address], [address], 03/24/2023 13:36:53 03/21/2003/24/2023 THINP REP TIS PAP prev. Pap: normal None given Not Available [facility] [address] [place], [address], 03/24/2023 13:36:53 03/21/2003/24/2023 THINP REP TIS PAP prev. BX: normal None given Not Available [address], [address], 03/24/2023 13:36:53 03/21/2003/24/2023 THINP REP TIS PAP source: normal Cervi x Not Available [address], [address], 03/24/2023 13:36:53 03/21/2003/24/2023 THINP REP TIS PAP statement of adequacy: normal Satis facto ry for evalu ation . Endoc ervic al/tr ansfo rmati on zone compo nent prese nt. Age and/o r menst rual statu s not provi ded Not Available [address], [address], 03/24/2023 13:36:53 03/21/2003/24/2023 THINP REP TIS PAP interpretati on/result: normal Cytol ogy Resul ts: Negat saroj for intra epith elial lesio n or malig shante . Not Available [address], [address], 03/24/2023 13:36:53 03/21/2003/24/2023 THINP REP TIS PAP comment: normal This Pap test has been evalu ated with compu ter irvin pancho techn ology . Not Available [address], [address], 03/24/2023 13:36:53 03/21/2003/24/2023 THINP REP TIS PAP cytotechnolo gist: normal PCM, CT( CP) CT Scree wilbert Locat ion: [address] [address] [address] [place] [place] [address] Not Available [facility] [address], [place], [address], 03/24/2023 13:36:53 03/21/2003/24/2023 THINP REP TIS PAP comment EXPLA NATOR Y NOTE: The Pap is a scree wilbert test for cervi sissy cance r. It is not a diagn ostic test and is subje ct to false negat saroj and false posit saroj resul ts. It is most relia ble when a satis facto ry sampl e, regul martin obtai patric, is submi tted with relev ant clini sissy findi ngs and histo ry, and when the Pap resul t is evalu ated along with histo sarika and curre nt clini sissy infor matio n. Not Available [facility] [address], [place], [address], 03/24/2023 13:36:53 03/21/2003/21/2023 US, trans vagin al No observ ation record ed. [email or web address] [facility] [address], [place], [address], 03/21/2023 14:17:19 Result Notes None recorded. Problems Name Problem SNOMED Code Status Onset Date Resolution Date Notes Provider Name and Address Organization Details Recorded Time Abnormal uterine bleeding 39707363506 100 Completed 202004/25/2023 Other specifie d abnormal uterine and vaginal bleeding ; Progress : Stable Added By: Dalia Amin Add to Current Problems : YES ProblemS tatus: Current Anila Britsch null, [facility] 3 05:14:45 Human papillom avirus deoxyrib onucleic acid detected , high risk on cervical specimen 526663778 Active 2020 Cervical high risk human papillom avirus (HPV) DNA test positive ; Progress : Stable Added By: Dalia Amin Add to Current Problems : YES ProblemS tatus: Current [place]sch null, [place] [facility] 3 05:14:53 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 Other specifie d noninfla mmatory disorder s of vulva and perineum ; Progress : Stable Added By: Jam Campa Add to Current Problems : YES ProblemS tatus: Current Anila Rodriguez null, [place] [facility] 3 05:14:59 Sampling of vagina for Papanico laou smear Completed 201904/25/2023 Encounte r for gynecolo gical examinat ion (general ) (routine ) without abnormal findings ; Progress : Stable Added By: Jade Fitch Add to Current Problems : YES ProblemS tatus: Current Anila Britsch null, [place] [facility] 3 05:14:41 Finding of pattern of menstrua l cycle 258924972 Completed 202004/25/2023 Excessiv e and frequent menstrua tion with irregula r cycle; Progress : Stable Added By: Jam Campa Add to Current Problems : YES ProblemS tatus: Current Anila Britsch null, [place] [facility] 3 05:14:37 Dysuria 36671471 Completed 201904/25/2023 Dysuria; Progress : Stable Added By: Jade Fitch Add to Current Problems : YES ProblemS tatus: Current Anila Britsch null, [place] [facility] 3 05:14:48 Screenin g for malignan t neoplasm of cervix Completed 201904/25/2023 Encounte r for screenin g for malignan t neoplasm of cervix; Progress : Stable Added By: Jade Fitch Add to Current Problems : YES ProblemS tatus: Current Anila Britsch null, [place] [facility] 3 05:14:34 Problem Notes None recorded. Procedures Surgical History Date Name Laterality Status Provider Name and Address Organization Details Recorded Time 3 Endometrial Biopsy completed OMAR GORDON DO [facility] [place], [address], [facility] IV 03/21/2023 11:39:54 3 Date of Last Pap Smear completed OMAR GORDON DO [address] [place], [address], [facility] [employer] IV 03/31/2023 17:38:08 ligation of bilateral fallopian tubes completed [facility] [employer] IV 02/09/2023 10:19:54 Bx of cervix w/scope leep completed [facility] [employer] IV 02/09/2023 10:20:03 Imaging Results Imaging Date Name Status LastModified by Organization Details LastModified Time 03/21/2023 US, transvaginal completed [email or web address] [facility] [address], [place], [address], 03/21/2023 14:17:19 Procedure Notes None recorded. Medical Equipment None Reported. Allergies Allergen ID Allergen Name Allergen Category Reaction Reaction Severity Criticality Documentation Date Start Date Code Code System Note Provider Name and Address Organization Details Recorded Time [id number] 7829846o7 2824e egg extract food,medi cation Not available Not available Not available 03/27/20212019 06687 15 RxNorm Sever ity: Moder ate; Not Available Not Available Not Available [id number] 692729906 7642254c6 2824e Product containin g penicilli n and antibioti c (product) medicatio n Not available Not available Not available 03/27/20212019 15376 05 SNOMED Sever ity: Moder ate; Not Available Not Available Not Available [id number] 506077715 6384832t0 2824e Substance with sulfonami de structure and antibacte rial mechanism of action (substanc e) medicatio n Not available Not available Not available 03/27/20212019 29920 8003 SNOMED Sever ity: Moder ate; Not Available Not Available Not Available Medications Name Sig Start Date Stop Date Status Note LastModified by Organization Details LastModified Time medroxypr ogesteron e 10 mg tablet TAKE 1 TABLET BY MOUTH ONCE DAILY 04/25 completed Not Available Not Available Not Available atorvasta tin 80 mg tablet TAKE 1 TABLET BY MOUTH ONCE DAILY active Not Available Not Available No t Available clindamyc in HCl 300 mg capsule TAKE 1 CAPSULE BY MOUTH EVERY 6 HOURS UNTIL GONE 04/25 completed Not Available Not Available Not Available ibuprofen 800 mg tablet TAKE 1 TABLET (800 MG) BY MOUTH 3 (THREE) TIMES A DAY NEEDED FOR PAIN AND SWELLING . 03/21 completed Not Available Not Available Not Available meloxicam 15 mg tablet TAKE 1 TABLET BY MOUTH EVERY DAY active Not Available Not Available No t Available prednison e 20 mg tablet TAKE 2 TABLETS BY MOUTH DAILY FOR 4 DAYS 03/21 completed Not Available Not Available Not Available metronida zole 500 mg tablet TAKE 1 TABLET BY MOUTH TWICE DAILY FOR 7 DAYS 04/25 completed Not Available Not Available Not Available acetamino phen 300 mg-codein e 30 mg tablet TAKE 1-2 TABLETS EVERY 6 HOURS NEEDED FOR PAIN NOT RELIEVED BY IBUPROFE N ALONE. TAKE WITH FOOD. 03/21 completed Not Available Not Available Not Available clopidogr el 75 mg tablet take 1 tablet (75 mg) by oral route once daily 02/09 completed clopidog reL 75 mg oral tablet RxNorm: [id number] Refill Denied: No Refill DateOccu rred: 02/01/20 Edited by: Jade Kelly ) on 02/01/20 Stopped by: Jade Kelly ) on Not Available Not Available Not Available triamcino lone acetonide 0.1 % topical cream APPLY CREAM EXTERNAL LY TWICE DAILY active Not Available Not Available No t Available gabapenti n 800 mg tablet TAKE 1 TABLET BY MOUTH THREE TIMES A DAY 03/21 completed Not Available Not Available Not Available amlodipin e 10 mg tablet TAKE 1 TABLET BY MOUTH ONCE DAILY active Not Available Not Available No t Available doxycycli ne monohydra te 100 mg capsule TAKE 1 CAPSULE (100 MG TOTAL) BY MOUTH 2 (TWO) TIMES A DAY FOR 6 DOSES 03/21 completed Not Available Not Available Not Available progester one micronize d 200 mg capsule TAKE 1 CAPSULE BY MOUTH ONCE DAILY active Not Available Not Available No t Available nicotine 21 mg/24 hr daily transderm al patch APPLY 1 PATCH EVERY DAY BY TRANSDER MAL ROUTE FOR 14 DAYS. 03/21 completed Not Available Not Available Not Available nitroglyc lizet 0.4 mg sublingua l tablet DISSOLVE 1 TABLET UNDER TONGUE EVERY 5 MINTUES NEEDED FOR CHEST PAIN. MAX 3 TABS, THEN CALL 911. active Not Available Not Available No t Available lidocaine HCl 2 % mucosal solution APPLY 5 ML TO THE MOUTH OR THROAT EVERY 4 HOURS NEEDED FOR TOOTH PAIN FOR UP TO 10 DAYS active Not Available Not Available No t Available aspirin 81 mg chewable tablet TAKE 1 TABLET BY MOUTH EVERY DAY active Not Available Not Available No t Available hydroxyzi ne HCl 25 mg tablet TAKE 1 TABLET BY MOUTH THREE TIMES DAILY NEEDED active Not Available Not Available No t Available methylpre dnisolone 4 mg tablets in a dose pack TAKE BY MOUTH DIRECTED ON INSIDE OF PACKAGE 04/25 completed Not Available Not Available Not Available albuterol sulfate HFA 90 mcg/actua tion aerosol inhaler INHALE 2 PUFFS BY MOUTH EVERY 4 HOURS NEEDED active Not Available Not Available No t Available cefdinir 300 mg capsule TAKE 1 CAPSULE BY MOUTH EVERY 12 HOURS FOR 7 DAYS 04/25 completed Not Available Not Available Not Available atenolol 50 mg tablet TAKE 1 TABLET BY MOUTH ONCE DAILY active Not Available Not Available No t Available esomepraz ole magnesium 20 mg capsule,d elayed release take 1 capsule (20 mg) ;sprinkl e entire contents on small amount applesau ce; take immediat melissa by oral route once daily at least 1 hour before a meal for 4 weeks swallowi ng whole. Do not crush or chew granules . 07/28 completed esomepra zole magnesiu m 20 mg oral capsule, delayed release (enteric coated) RxNorm: [id number] Allow Substitu tion: False Refill Denied: No Refill DateOccu rred: 02/01/20 Edited by: Dalia Stone ) on 07/28/19 Stopped by: Dalia Stone ) on 07/28/19 21 Not Available Not Available Not Available chlorhexi dine gluconate 0.12 % mouthwash SWISH AND SPIT OUT 15 ML TWICE DAILY TO MUCOUS MEMBRANE FOR 15 DAYS active Not Available Not Available No t Available Decadron 07/28 completed Decadron RxNorm: [id number] Allow Substitu tion: False Refill Denied: No Refill DateOccu rred: 02/01/20 20 Edited by: Dalia Stone ) on 07/28/19 Stopped by: Dalia Stone ) on 07/28/19 21 Not Available Not Available Not Available ranolazin e ER 500 mg tablet,ex tended release,1 2 hr TAKE 1 TABLET BY MOUTH TWICE A DAY active Not Available Not Available No t Available Advair HFA 01/31 completed Advair HFA RxNorm: [id number] Allow Substitu tion: False Refill Denied: No Refill DateOccu rred: 02/01/20 Edited by: Jade Kelly ) on 02/01/20 Stopped by: Jade Kelly ) on 02/01/20 20 Not Available Not Available Not Available FeroSul 325 mg (65 mg iron) tablet TAKE 1 TABLET BY MOUTH ONCE DAILY active Not Available Not Available No t Available BinaxNOW COVID-19 Ag Self Test kit TEST DIRECTED TODAY 03/21 completed Not Available Not Available Not Available Vitals Date Recorded Body weight Provider Name an d Address Organization Details Last Updated DateTime 02/09/2023 030443.62 g Trang [employer] [facility] IV 02/09/2023 10:06:08 Date Recorded Body temperature Provider Name a nd Address Organization Details Last Updated DateTime 02/09/2023 97.6 [degF] Trang [facility] IV 02/09/2023 10:06:12 Date Recorded Body mass index (BMI) Body height Provider Name and Address Organization Details Last Updated DateTime 02/09/2023 35.6 kg/m2 170.18 cm Trang Funes [employer] IV 02/09/2023 10:06:39 Date Recorded Body height Provider Name an d Address Organization Details Last Updated DateTime 03/21/2023 170.18 cm Merced Colon [facility] [employer] [facility] IV 03/21/2023 10:45:57 Date Recorded Body temperature Provider Name a nd Address Organization Details Last Updated DateTime 03/21/2023 98 [degF] Merced Colon [place] [employer] IV 03/21/2023 10:46:04 Date Recorded Body mass index (BMI) Body weight Provider Name and Address Organization Details Last Updated DateTime 03/21/2023 35.4 kg/m2 289000.16 g Merced Isaiah [facility] [employer] [facility] IV 03/21/2023 10:56:00 Date Recorded Body height Provider Name an d Address Organization Details Last Updated DateTime 04/25/2023 170.18 cm Bo Bridges [facility] IV 04/25/2023 12:19:46 Date Recorded Systolic blood pressure Diastolic blood pressure Provider Name and Address Organization Details Last Updated DateTime 02/09/2023 138 mm[Hg] 90 mm[Hg] Trang Funes [facility] IV 02/09/2023 10:08:27 Date Recorded Systolic blood pressure Diastolic blood pressure Provider Name and Address Organization Details Last Updated DateTime 03/21/2023 124 mm[Hg] 72 mm[Hg] [facility]ced [facility] IV 03/21/2023 10:55:54 Social History Question Answer Notes LastModified by Organizat ion Details LastModified Time Tobacco Smoking Status Current Every Day Smoker Trang Funes [facility] IV 02/09/2023 10:19:22 What Is Your Level Of Alcohol Consumption? None [email or web address] Information not available 02/09/2023 Are You Blind Or Do You Have Difficulty Seeing? No Information not available 02/09/2023 Are You Currently Employed? No [email or web address] Information not available 02/09/2023 Are You Deaf Or Do You Have Serious Difficulty Hearing? No [email or web address] Information not available 02/09/2023 What Type Of Diet Are You Following? REGULAR [email or web address] Information not available 02/09/2023 Which Illicit Or Recreational Drugs Have You Used? Suring [email or web address] Information not available 02/09/2023 Do You Or Have You Ever Used E-cigarettes Or Vape? Current User Of Electronic Cigarettes [email or web address] Information not available 02/09/2023 What Is The Highest Grade Or Level Of School You Have Completed Or The Highest Degree You Have Received? [id number] [email or web address] Information not available 02/09/2023 How Many Children Do You Have? 3 [email or web address] Information not available 02/09/2023 What Is Your Relationship Status? [email or web address] Information not available 02/09/2023 Are You Sexually Active? Yes [email or web address] Information not available 02/09/2023 At What Age Did You Start Smoking Tobacco? 12 Information not available 02/09/2023 Do You Or Have You Ever Used Smokeless Tobacco? [id number] [email or web address] Information not available 02/09/2023 How Much Tobacco Do You Smoke? 1 PPD Information not available 02/09/2023 Do You Use Any Illicit Or Recreational Drugs? Yes [email or web address] Information not available 02/09/2023 How Many Years Have You Smoked Tobacco? 30 [email or web address] Information not available 02/09/2023 Have You Used IV Drugs? No [email or web address] Information not available 02/09/2023 Do You Or Have You Ever Used Any Other Forms Of Tobacco Or Nicotine? Yes [email or web address] Information not available 02/09/2023 Sex: Female Functional Status Question Answer Note LastModified by Organizat ion Details LastModified Time What is your exercise level? Occasional Information not available 02/09/2023 Mental Status None recorded. Family History Relationship Description Onset Age of this Age Resolved Age Notes LastModified by Organization Details LastModified Time Father Malignant tumor of lung [email or web address] Not available 2022 10:15:51 Mother Malignant tumor of gallbladder [email or web address] Not available 11/2022 10:16:11 Mother Disease of liver [email or web address] Not available 2022 10:16:53 Medical History Condition Response Panic Attacks Y Arthritis Y HPV/Genital Warts Y Heart Disease Y Gynecological History Statement/Question Response Date of Last Colonoscopy Date of last HPV 03/21/2023 Date of LMP 12/02/2022 HPV Vaccine N Date of Last Pap Smear 03/21/2023 Most Recent Mammogram Current Control Method Tubal Ligat ion Age at Menarche 13 Obstetrics History GPAL:G 3 P 3 0 0 3 Type Value Full Term 3 Living 3 Total 3 Past Encounters Encounter ID Performer Location Encounter Start Date Encounter Closed Date Diagnosis/Indication Diagnosis SNOMED-CT Code Diagnosis ICD10 Code Diagnosis Note [id number] OMAR GORDON DO [facility] [address] [place] [address] 02/09/2023 09:59:38 02/09/2023 12:52:59 Abnormal uterine bleeding 8360756992 9100 N93.9 52 yo with AUBcomplic ated by CAD s/p stents (x3) in 2019Tobacc o user (4 packs/week and vaping)shaggy g h/o AUB and abnormal paps RTO for US and embx and pap, currently bleeding and unable to do pap [id number] OMRA GORDON, DO [facility] [address] [place] [address] 03/21/2023 09:43:11 03/21/2023 15:08:52 Abnormal uterine bleeding 0496322983 9100 N93.9 52 yo with AUBcomplic ated by CAD s/p stents (x3) in 2019Tobacc o user (4 packs/week and vaping)shaggy g h/o AUB and abnormal paps US: uterus wnl, 0.9 cm endometria l thickness. b/l ovaries wnlembx completed today along with FSH/Estrad iol to ascertain if AUB or PMB Screening for malignant neoplasm of cervix 657876271 Z12.4 history of LEEP for RONEY 2 [id number] OMAR GORDON DO [facility] [address] [place] [address] 04/25/2023 11:31:33 04/25/2023 16:51:47 Abnormal uterine bleeding 6017440421 9100 N93.9 52 yo with AUBcomplic ated by CAD s/p stents (x3) in 2019Tobacc o user (4 packs/week and vaping)shaggy g h/o AUB and abnormal paps US: uterus wnl, 0.9 cm endometria l thickness. b/l ovaries wnlembx: benign w/ focal necrosisFH S/Estradio l consistent with perimenopa usal pt still having some bleeding on Provera. Discussed Prometrium vs Mirena. Opted for Prometrium for a month. discussed likely to have a bleed immediatel y after stopping but should stop it all together. if it fails will get Mirena IUD Screening for malignant neoplasm of breast [id number] Z12.39 needs mammogram before ever refilling prometrium Health Concerns Section Related Observation LastModified by Organization Detai ls LastModified Time None Recorded Concern Status LastModified by Organization Details LastModified Time None Recorded Advance Directives Directive None Recorded Payers Encounter Date Sequence Insurance Name Policy Number Policy Garzon Covered Member ID Garzon Member ID Guarantor Name 02/09/2023 1 [facility] [place] [id number] Padmini Dierking [id number] Macrina Dierking 03/21/2023 1 [facility] [place] [id number] Padmini Dierking [id number] Macrina Dierking 04/25/2023 1 [facility] [place] [id number] Padmini Dierking [id number] Macrina Dierking Notes Date Note Type Note Provider Name and Address Organization Details Recorded Time 02/09/2023 text/html Macrina is here because she is having bleeding between periods. Her period is irregular. She haven't have a period since november 2022. stabbing feeling in her side. since 2018 bleeding every other month with heavy bleeding for 2-3 weeksh/o precancerous cervix w/ LEEPh/o HPV biopsy of vulva bleeding with intercourse OMAR GORDON DO [address] [place] [address], [phone], [facility] [employer] 02/09/2023 11:12:09 03/21/2023 text/html Macrina is here because she is having bleeding between periods. Her period is irregular. She haven't have a period since november 2022. stabbing feeling in her side. since 2018 bleeding every other month with heavy bleeding for 2-3 weeksh/o precancerous cervix w/ LEEPh/o HPV biopsy of vulva bleeding with intercourse. OMAR GORDON DO [address] [place] [address], [phone], [employer] 03/21/2023 11:40:39 04/25/2023 text/html Macrina is here because she is having bleeding between periods. Her period is irregular. She haven't have a period since november 2022. stabbing feeling in her side. since 2018 bleeding every other month with heavy bleeding for 2-3 weeksh/o precancerous cervix w/ LEEPh/o HPV biopsy of vulva bleeding with intercourse. OMAR GORDON DO [facility] [place], [phone], [facility] [employer] 04/25/2023 12:52:18 OBGyn Episode No OBEpisode recorded.
--- OUTSIDE RECORDS SUMMARY | 2024-07-03 19:09 | XMS_ITS | Data Portability ---
[facility] [address] [place] [address] Care Team Providers Care Dope Sprayer Name Role Phone LEON MENSAH Primary Care Provider [phone] Assessment No assessment recorded. Plan of Treatment Reminders Order Date Submit Date Provider Last Modified By Organization Details Last Modified Time Details Appointments None record ed. Lab cultur e, urine 2021 022 [facility], [address] [place] [address], [address], [place], [address], 3 17:07:47 lipid panel, serum 2022 023 [facility], [address] [place] [address], [facility] [place], [address], 3 20:08:55 CBC w/ auto diff 2022 023 [facility], [address] [place] [address] 2, [place], [address], 3 20:08:56 HbA1c (hemog lobin A1c), blood 2022 023 [facility], [address] [facility], [facility] 2, [place], [address], 3 06:18:05 TSH, ultra- sensit saroj, serum 2022 023 [facility], [address] [place] [address], [facility] 2, [place], [address], 3 06:18:05 BNP (B-typ e natriu retic peptid e), serum or plasma 2022 023 [facility], [address] [facility] [address], [place], [address], 3 11:11:33 D-dime r, quant, plasma 2022 023 [facility], [facility], [facility] 2, [place], [address], 3 11:11:33 CMP, serum or plasma 2022 023 [facility], [address] [place] [address], [facility] 2, [place], [address], 3 20:08:55 HbA1c (hemog lobin A1c), blood 2022 023 [facility], [address] [place] [address], [facility] 2, [place], [address], 3 10:46:17 CBC w/ auto diff 2022 023 [facility], [address] [place] [address], [facility] 2, [place], [address], 3 19:08:30 iron + total iron-b inding capaci ty (TIBC) , serum 2022 023 [facility], [address] [place] [address], [facility] 2, [place], [address], 3 10:46:17 ferrit in, serum or plasma 2022 023 [facility], [address] [place] [address], [facility] 2, [place], [address], 3 10:46:18 vitami n B12 + folate , serum or blood - add on 2022 023 [facility], [address] [facility], [facility] 2, [place], [address], 3 20:06:47 Referral regist radha quiroz referr al - elevat ed BMI and DM. 2022 024 [facility] [address], [facility] , [facility], [place], [address], 4 12:31:24 Procedures None record ed. Surgeries None record ed. Imaging US, echoca rdiogr am, transt hordante c, comple te 2022 023 [facility], [address] [place] [address] , [place], [address], 3 16:01:09 Medication Orders benzoc franci 15 mg lozeng es 2021 022 [email or web address] Not available 3 10:44:27 meloxi cam 15 mg tablet 2021 022 [facility] Not available 2 17:06:34 nicoti ne 21 mg/24 hr daily transd ermal patch 2022 023 [email or web address] Not available 3 16:40:25 benzoc franci 15 mg lozeng es 2022 023 [email or web address] Not available 3 10:44:27 Peride x 0.12 % mouthw yo 2022 023 [email or web address] Not available 3 09:50:16 Lidoca ine Viscou s 2 % mucosa l soluti on 2022 023 [email or web address] Not available 3 09:50:16 amoxic illin 875 mg-pot assium clavul anate 125 mg tablet 2022 023 [facility], [address] [facility], [place], [address], 3 10:08:38 cefdin ir 300 mg capsul e 2022 023 [facility], [address] [place] [address], [address], 3 10:43:07 metron idazol e 500 mg tablet 2022 023 [facility], [address] [place] [address], [address], 4 15:45:50 hydrox yzine HCl 25 mg tablet [address] [facility], [address] [place] [address], [address], 3 10:45:32 Peride x 0.12 % mouthw yo 2022 023 [facility], [address] [place] [address], [address], 3 10:53:30 lidoca ine HCl 2 % mucosa l soluti on 2022 023 [facility], [address] [place] [address], [address], 3 10:53:31 Mirala x 17 gram oral powder packet 2023 024 [facility], [address] [place] [address], [address], 4 17:24:54 Dulcol ax Stool Soften er (docus ate) 100 mg capsul e 2023 024 [facility], [address] [place] [address], [address], 4 17:24:53 Patient TargetsNo targets recorded. Patient Instructions Encounter Date Encounter Id Patient Instructions Last Modified By Organization Details Last Modified Time 06/03/2022 [id number] Quitting Tobacco : Care Instructions [email or web address] Not available 06/07/2022 11:04:39 Attending Physician Addendum I did not personally see or examine the patient with the resident. I was physically present to provide indirect supervision through entire encounter. I have reviewed the documentation and agree with the history, physical findings, work-up, and medical decision making as recorded. Xochilt Jo MD [email or web address] Not available 06/09/2022 12:34:38 02/11/2023 [id number] A healthy lifestyle: care instructions [email or web address] Not available 02/11/2023 09:50:16 Attending Physician Attestation I did not personally see or examine the patient with the resident. I was physically present to provide indirect supervision through entire encounter. I have reviewed the documentation and agree with the history, physical findings, work-up, and medical decision making as recorded. Xochilt Jo MD mmetias Not available 02/11/2023 09:55:22 04/14/2023 [id number] Attending Physician Attestation I did not personally see or examine the patient with the resident. I was physically present to provide indirect supervision through entire encounter. I have reviewed the documentation and agree with the history, physical findings, work-up, and medical decision making as recorded. Xochilt Jo MD mmetias Not available 04/14/2023 12:01:56 05/13/2023 [id number] A healthy lifestyle: care instructions [email or web address] Not available 05/13/2023 10:53:24 I discussed the patient? s presentation, findings, assessment and plan with the resident during or immediately after the time of service. I agree with the resident? s findings, assessment, and plan as documented in the note above. James Milton MD. [facility] Not available 05/13/2023 11:31:08 06/14/2023 [id number] Attending Physician Addendum I did not personally see or examine the patient with the resident. I was physically present to provide indirect supervision through entire encounter. I have reviewed the documentation and agree with the history, physical findings, work-up, and medical decision making as recorded. Alicia Cruz MD [email or web address] Not available 07/09/2023 10:06:49 Reason for Referral Registered Dietitian Phillip lorenzo for High glucose level in blood elevated BMI and DM. Referring Physician: Mike Arias, Resistance Welding Machine Operator, Encounter Date: 04/14/2023 Results Created Date Observation Date Name Description Value Unit Range Abnormal Flag Note LastModifiedBy Organization Detail LastModifiedTime 06/03/20 22 06/06/2022 URINE CULTU RE, ROUTI NE urine culture, routine Final report Not Available [facility] ([facility]) [address] [facility], [place], [address], 06/06/2022 17:07:46 06/03/20 22 06/06/2022 URINE CULTU RE, ROUTI NE result 1 Commen t Great er than 2 organ isms recov ered, none predo minan t. Pleas e submi t anoth er sampl e if clini liz indic ated. 50,00 0-100 ,000 colon y formi ng units per mL Not Available [facility] ([facility]) [address] [facility], [place], [address], 06/06/2022 17:07:46 02/12/20 23 02/11/2023 LIPID PANEL cholesterol, total 132 mg/dL 100-19 9 Not Available [facility] Department [address] [place], [address], 02/11/2023 20:08:55 02/12/20 23 02/11/2023 LIPID PANEL triglyceride s 101 mg/dL 0-149 Not Available [facility] Department [address] [place], [address], 02/11/2023 20:08:55 02/12/20 23 02/11/2023 LIPID PANEL HDL cholesterol 34 mg/dL 40-999 below low normal Not Available [facility] Department [address] [place], [address], 02/11/2023 20:08:55 02/12/20 23 02/11/2023 LIPID PANEL VLDL cholesterol sissy 20 mg/dL 5-40 Not Available [facility] Department [address] [place], [address], 02/11/2023 20:08:55 02/12/20 23 02/11/2023 LIPID PANEL LDL chol calc (nih) 91 mg/dL 0-99 Not Available [facility] Department [address] [place], [address], 02/11/2023 20:08:55 02/12/20 23 02/11/2023 COMP. METAB OLIC PANEL (14) glucose 100 mg/dL 70-99 above high normal Not Available [facility] Department [address] [place], [address], 02/11/2023 20:08:55 02/12/20 23 02/11/2023 COMP. METAB OLIC PANEL (14) BUN 12 mg/dL 6-24 Not Available [facility] Department [address] [place], [address], 02/11/2023 20:08:55 02/12/20 23 02/11/2023 COMP. METAB OLIC PANEL (14) creatinine 0.77 mg/dL 0.76-1 .27 Not Available [facility] Department [address] [place], [address], 02/11/2023 20:08:55 02/12/20 23 02/11/2023 COMP. METAB OLIC PANEL (14) eGFR 93 >=60 Units for eGFR value s are mL/mi n/1.7 3 The eGFR Calcu latio n has not been valid ated for patie nts under the age of 18. If test resul ts are displ ayed for a patie nt under the age of 18, disre nick that value . Not Available [facility] Department [address] [place], [address], 02/11/2023 20:08:55 02/12/20 23 02/11/2023 COMP. METAB OLIC PANEL (14) BUN/creatini ne ratio 15 9-23 Not Available [facility] Department [address] [place], [address], 02/11/2023 20:08:55 02/12/20 23 02/11/2023 COMP. METAB OLIC PANEL (14) sodium 140 mmol/ L 134-14 4 Not Available [facility] Department [address] [place], [address], 02/11/2023 20:08:55 02/12/20 23 02/11/2023 COMP. METAB OLIC PANEL (14) potassium 4.7 mmol/ L 3.5-5. 2 Not Available [facility] Department [address] [place], [address], 02/11/2023 20:08:55 02/12/20 23 02/11/2023 COMP. METAB OLIC PANEL (14) chloride 104 mmol/ L 96-106 Not Available [facility] Department [address] [place] [address], [address], 02/11/2023 20:08:55 02/12/20 23 02/11/2023 COMP. METAB OLIC PANEL (14) carbon dioxide, total 24 mmol/ L 20-29 Not Available [facility] Department [address] [place], [address], 02/11/2023 20:08:55 02/12/20 23 02/11/2023 COMP. METAB OLIC PANEL (14) calcium 9.3 mg/dL 8.7-10 .2 Not Available [facility] Department [address] [place] [address], [address], 02/11/2023 20:08:55 02/12/20 23 02/11/2023 COMP. METAB OLIC PANEL (14) protein, total 7.3 g/dL 6.0-8. 5 Not Available [facility] Department [address] [place] [address], [address], 02/11/2023 20:08:55 02/12/20 23 02/11/2023 COMP. METAB OLIC PANEL (14) albumin 4.0 g/dL 3.8-4. 9 Not Available [facility] Department [address] [place], [address], 02/11/2023 20:08:55 02/12/20 23 02/11/2023 COMP. METAB OLIC PANEL (14) globulin, total 3.3 g/dL 1.5-4. 5 Not Available [facility] Department [address] [place], [address], 02/11/2023 20:08:55 02/12/20 23 02/11/2023 COMP. METAB OLIC PANEL (14) A/G ratio 1.0 1.2-2. 2 below low normal Not Available [facility] Department [address] [place] [address], [address], 02/11/2023 20:08:55 02/12/20 23 02/11/2023 COMP. METAB OLIC PANEL (14) bilirubin, total 0.4 mg/dL 0.0-1. 2 Not Available [facility] Department [address] [place], [address], 02/11/2023 20:08:55 02/12/20 23 02/11/2023 COMP. METAB OLIC PANEL (14) alkaline phosphatase 115 IU/L 44-121 Not Available [facility] Department [address] [place], [address], 02/11/2023 20:08:55 02/12/20 23 02/11/2023 COMP. METAB OLIC PANEL (14) AST (SGOT) 12 IU/L 0-40 Not Available [facility] Department [address] [place] [address], [address], 02/11/2023 20:08:55 02/12/20 23 02/11/2023 COMP. METAB OLIC PANEL (14) ALT (SGPT) 10 IU/L 0-32 Not Available [facility] Department [address] [place] [address] [place], [address], 02/11/2023 20:08:55 02/12/20 23 02/11/2023 CBC WITH DIFFE RENTI AL/PL ATELE T WBC 9.3 x10e3 /uL 3.4-10 .8 Not Available [facility] Department [address] [place], [address], 02/11/2023 20:08:56 02/12/20 23 02/11/2023 CBC WITH DIFFE RENTI AL/PL ATELE T RBC 4.31 x10e6 /uL 3.77-5 .28 Not Available [facility] Department [address] [place], [address], 02/11/2023 20:08:56 02/12/20 23 02/11/2023 CBC WITH DIFFE RENTI AL/PL ATELE T hemoglobin 10.9 g/dL 11.1-1 5.9 below low normal Not Available [facility] Department [address] [place], [address], 02/11/2023 20:08:56 02/12/20 23 02/11/2023 CBC WITH DIFFE RENTI AL/PL ATELE T hematocrit 36.8 % 34.0-4 6.6 Not Available [facility] Department [address] [place], [address], 02/11/2023 20:08:56 02/12/20 23 02/11/2023 CBC WITH DIFFE RENTI AL/PL ATELE T MCV 85 fL 79-97 Not Available [facility] Department [address] [place], [address], 02/11/2023 20:08:56 02/12/20 23 02/11/2023 CBC WITH DIFFE RENTI AL/PL ATELE T MCH 25.3 pg 26.6-3 3.0 below low normal Not Available [facility] Department [address] [place], [address], 02/11/2023 20:08:56 02/12/20 23 02/11/2023 CBC WITH DIFFE RENTI AL/PL ATELE T MCHC 29.6 g/dL 31.5-3 5.7 below low normal Not Available [facility] Department [address] [place], [address], 02/11/2023 20:08:56 02/12/20 23 02/11/2023 CBC WITH DIFFE RENTI AL/PL ATELE T RDW 17.0 % 11.5-1 4.5 above high normal Not Available [facility] Department [address] [place], [address], 02/11/2023 20:08:56 02/12/20 23 02/11/2023 CBC WITH DIFFE RENTI AL/PL ATELE T platelets 325 x10e3 /uL 150-45 0 Not Available [facility] Department [address] [place], [address], 02/11/2023 20:08:56 02/12/20 23 02/11/2023 CBC WITH DIFFE RENTI AL/PL ATELE T neutrophils 65 % notest b. Not Available [facility] Department [address] [place], [address], 02/11/2023 20:08:56 02/12/20 23 02/11/2023 CBC WITH DIFFE RENTI AL/PL ATELE T lymphs 22 % notest b. Not Available [facility] Department [address] [place], [address], 02/11/2023 20:08:56 02/12/20 23 02/11/2023 CBC WITH DIFFE RENTI AL/PL ATELE T monocytes 8 % notest b. Not Available [facility] Department [address] [place], [address], 02/11/2023 20:08:56 02/12/20 23 02/11/2023 CBC WITH DIFFE RENTI AL/PL ATELE T eos 4 % notest b. Not Available [facility] Department [address] [place], [address], 02/11/2023 20:08:56 02/12/20 23 02/11/2023 CBC WITH DIFFE RENTI AL/PL ATELE T basos 1 % notest b. Not Available [facility] Department [address] [place], [address], 02/11/2023 20:08:56 02/12/20 23 02/11/2023 CBC WITH DIFFE RENTI AL/PL ATELE T neutrophils (absolute) 6.1 x10e3 /uL 1.4-7. 0 Not Available [facility] Department [address] [place], [address], 02/11/2023 20:08:56 02/12/20 23 02/11/2023 CBC WITH DIFFE RENTI AL/PL ATELE T lymphs (absolute) 2.1 x10e3 /uL 0.7-3. 1 Not Available [facility] Department [address] [place], [address], 02/11/2023 20:08:56 02/12/20 23 02/11/2023 CBC WITH DIFFE RENTI AL/PL ATELE T monocytes(ab solute) 0.7 x10e3 /uL 0.1-0. 9 Not Available [facility] Department [address] [place], [address], 02/11/2023 20:08:56 02/12/20 23 02/11/2023 CBC WITH DIFFE RENTI AL/PL ATELE T eos (absolute) 0.4 x10e3 /uL 0.0-0. 4 Not Available [facility] Department [address] [place], [address], 02/11/2023 20:08:56 02/12/20 23 02/11/2023 CBC WITH DIFFE RENTI AL/PL ATELE T baso (absolute) 0.1 x10e3 /uL 0.0-0. 2 Not Available [facility] Department [address] [place], [address], 02/11/2023 20:08:56 02/12/20 23 02/11/2023 CBC WITH DIFFE RENTI AL/PL ATELE T immature granulocytes 0.3 % notest b. Not Available [facility] Department [address] [place], [address], 02/11/2023 20:08:56 02/12/20 23 02/11/2023 CBC WITH DIFFE RENTI AL/PL ATELE T immature grans (abs) 0.0 x10e3 /uL 0.0-0. 1 Not Available [facility] Department [address] [place], [address], 02/11/2023 20:08:56 02/12/20 23 02/11/2023 CBC WITH DIFFE RENTI AL/PL ATELE T NRBC 0 % 0-0 Not Available [facility] Department [address] [place], [address], 02/11/2023 20:08:56 02/12/20 23 02/12/2023 TSH RFX ON ABNOR MAL TO FREE T4 TSH 2.550 uIU/m L 0.450- 4.500 Not Available [facility] ([facility]) [address] [facility], [place], [address], 02/12/2023 06:18:05 02/12/2002/11/2023 HEMOG LOBIN A1C hemoglobin A1C 6.3 % 4.8-5. 6 above high normal Predi abete s: 5.7 - 6.4 Diabe zhao: >6.4 Glyce memo contr ol for adult s with diabe zhao: <7.0 Not Available [facility] ([facility]) [address] [facility], [place], [address], 02/12/2023 06:18:05 02/12/2002/12/2023 D-DIM ER D-dimer 0.43 mg/L_ feu 0.00-0 .49 Accor ding to the assay manuf actur er's publi shed packa ge inser t, a tiffanie l (<0.5 0 mg/L FEU) D-dim er resul t in conju nctio n with a non-h igh clini sissy proba bilit y asses sment , exclu enoch deep vein throm bosis (DVT) and pulmo nary embol ism (PE) with high sensi tivit y. D-dim er value s incre ase with age and this can make VTE exclu [place] of an older popul ation diffi cult. To addre ss this, the Ameri can Colle ge of Physi cians , based on best avail able evide nce and recen t guide lines , recom mends that clini cians use age-a djust ed D-dim er thres holds in patie nts great er than 50 years of age with: a) a low proba bilit y of PE who do not meet all Pulmo nary Embol ism Rule Out Crite josef, or b) in those with inter media te proba bilit y of PE. The formu la for an age-a djust ed D-dim er cut-o ff is age/ 100 . For examp le, a 60 year old patie nt would have an age-a djust ed cut-o ff of 0.60 mg/L FEU and an 80 year old 0.80 mg/L FEU. Not Available [facility] ([facility]) [address] [facility], [place], [address], 02/12/2023 11:11:32 02/12/20 23 02/12/2023 B-TYP E NATRI URETI C PEPTI DE B-type natriuretic peptide 83.0 pg/mL 0.0-10 0.0 Sieme ns ADVIA Cent[facility] XP metho dolog y Not Available [facility] ([facility]) [address] [facility], [place], [address], 02/12/2023 11:11:33 05/13/20 23 05/13/2023 CBC WITH DIFFE RENTI AL/PL ATELE T WBC 9.8 x10e3 /uL 3.4-10 .8 Not Available [facility] Department [address] [place], [address], 05/13/2023 19:08:30 05/13/20 23 05/13/2023 CBC WITH DIFFE RENTI AL/PL ATELE T RBC 4.69 x10e6 /uL 3.77-5 .28 Not Available [facility] Department [address] [place], [address], 05/13/2023 19:08:30 05/13/20 23 05/13/2023 CBC WITH DIFFE RENTI AL/PL ATELE T hemoglobin 11.3 g/dL 11.1-1 5.9 Not Available [facility] Department [address] [place], [address], 05/13/2023 19:08:30 05/13/20 23 05/13/2023 CBC WITH DIFFE RENTI AL/PL ATELE T hematocrit 38.0 % 34.0-4 6.6 Not Available [facility] Department [address] [place], [address], 05/13/2023 19:08:30 05/13/20 23 05/13/2023 CBC WITH DIFFE RENTI AL/PL ATELE T MCV 81 fL 79-97 Not Available [facility] Department [address] [place], [address], 05/13/2023 19:08:30 05/13/20 23 05/13/2023 CBC WITH DIFFE RENTI AL/PL ATELE T MCH 24.1 pg 26.6-3 3.0 below low normal Not Available [facility] Department [address] [place], [address], 05/13/2023 19:08:30 05/13/20 23 05/13/2023 CBC WITH DIFFE RENTI AL/PL ATELE T MCHC 29.7 g/dL 31.5-3 5.7 below low normal Not Available [facility] Department [address] [place], [address], 05/13/2023 19:08:30 05/13/20 23 05/13/2023 CBC WITH DIFFE RENTI AL/PL ATELE T RDW 16.2 % 11.5-1 4.5 above high normal Not Available [facility] Department [address] [place], [address], 05/13/2023 19:08:30 05/13/20 23 05/13/2023 CBC WITH DIFFE RENTI AL/PL ATELE T platelets 296 x10e3 /uL 150-45 0 Not Available [facility] Department [address] [place], [address], 05/13/2023 19:08:30 05/13/20 23 05/13/2023 CBC WITH DIFFE RENTI AL/PL ATELE T neutrophils 68 % notest b. Not Available [facility] Department [address] [place], [address], 05/13/2023 19:08:30 05/13/20 23 05/13/2023 CBC WITH DIFFE RENTI AL/PL ATELE T lymphs 22 % notest b. Not Available [facility] Department [address] [place], [address], 05/13/2023 19:08:30 05/13/20 23 05/13/2023 CBC WITH DIFFE RENTI AL/PL ATELE T monocytes 7 % notest b. Not Available [facility] Department [address] [place], [address], 05/13/2023 19:08:30 05/13/20 23 05/13/2023 CBC WITH DIFFE RENTI AL/PL ATELE T eos 2 % notest b. Not Available [facility] Department [address] [place], [address], 05/13/2023 19:08:30 05/13/20 23 05/13/2023 CBC WITH DIFFE RENTI AL/PL ATELE T basos 1 % notest b. Not Available [facility] Department [address] [place], [address], 05/13/2023 19:08:30 05/13/20 23 05/13/2023 CBC WITH DIFFE RENTI AL/PL ATELE T neutrophils (absolute) 6.7 x10e3 /uL 1.4-7. 0 Not Available [facility] Department [address] [place], [address], 05/13/2023 19:08:30 05/13/20 23 05/13/2023 CBC WITH DIFFE RENTI AL/PL ATELE T lymphs (absolute) 2.2 x10e3 /uL 0.7-3. 1 Not Available [facility] Department [address] [place], [address], 05/13/2023 19:08:30 05/13/20 23 05/13/2023 CBC WITH DIFFE RENTI AL/PL ATELE T monocytes(ab solute) 0.7 x10e3 /uL 0.1-0. 9 Not Available [facility] Department [address] [place], [address], 05/13/2023 19:08:30 05/13/20 23 05/13/2023 CBC WITH DIFFE RENTI AL/PL ATELE T eos (absolute) 0.2 x10e3 /uL 0.0-0. 4 Not Available [facility] Department [address] [place], [address], 05/13/2023 19:08:30 05/13/20 23 05/13/2023 CBC WITH DIFFE RENTI AL/PL ATELE T baso (absolute) 0.1 x10e3 /uL 0.0-0. 2 Not Available [facility] Department [address] [place], [address], 05/13/2023 19:08:30 05/13/20 23 05/13/2023 CBC WITH DIFFE RENTI AL/PL ATELE T immature granulocytes 0.3 % notest b. Not Available [facility] Department [address] [place], [address], 05/13/2023 19:08:30 05/13/20 23 05/13/2023 CBC WITH DIFFE RENTI AL/PL ATELE T immature grans (abs) 0.0 x10e3 /uL 0.0-0. 1 Not Available [facility] Department [address] [place], [address], 05/13/2023 19:08:30 05/13/20 23 05/13/2023 CBC WITH DIFFE RENTI AL/PL ATELE T NRBC 0 % 0-0 Not Available [facility] Department [address] [place], [address], 05/13/2023 19:08:30 05/13/20 23 05/14/2023 IRON AND TIBC iron bind.cap.(TI BC) 321 ug/dL 250-45 0 Not Available [facility] ([facility]) [address] [place], [address], 05/14/2023 10:46:17 05/13/20 23 05/14/2023 IRON AND TIBC UIBC 294 ug/dL 131-42 5 Not Available [facility] ([facility]) [place], [address], 05/14/2023 10:46:17 05/13/20 23 05/14/2023 IRON AND TIBC iron 27 ug/dL 27-159 Not Available [facility] ([facility]) [address] [place], [address], 05/14/2023 10:46:17 05/13/20 23 05/14/2023 IRON AND TIBC iron saturation 8 % 15-55 alert low Not Available [facility] ([facility]) [address] [facility], [place], [address], 05/14/2023 10:46:17 05/13/20 23 05/14/2023 HEMOG LOBIN A1C hemoglobin A1C 6.6 % 4.8-5. 6 above high normal Predi abete s: 5.7 - 6.4 Diabe zhao: >6.4 Glyce memo contr ol for adult s with diabe zhao: <7.0 Not Available [facility] ([facility]) [address] [facility], [place], [address], 05/14/2023 10:46:17 05/13/20 23 05/14/2023 MATT TIN ferritin 13 NG/mL 15-150 below low normal Not Available [facility] ([facility]) [address] [facility], [place], [address], 05/14/2023 10:46:18 Result Notes None recorded. Problems Name Problem SNOMED Code Status Onset Date Resolution Date Notes Provider Name and Address Organization Details Recorded Time Obesity 587746011 Active 2013 E[place]LM[place]A [place], [place] - [facility] 0 11:01:07 Tobacco dependence syndrome 54479921 Active 2013 Halima Walker [place], [place] [facility] 3 09:38:14 Iron deficiency anemia 09824252 Active 2017 [place] [facility] 0 15:05:06 Bilious vomiting 16817692 Active 2017 E[place] [facility] 0 15:05:06 Periumbilical pain 393256719 Active 2017 [place] [facility] 0 15:05:06 Gastric ulcer 944466644 Active Wendy Del Valle [place], [place] [facility] 0 15:05:07 Ascites 491808662 Active 2017 E[place] [facility] 0 15:05:07 Diarrhea of presumed infectious origin 74645004 Active 2017 E[place] [facility] 0 15:05:07 Infection of tooth 583307663 Active 2022 Mike Arias MD Attn: Rosario joe,[address] [place], [address], [place] [facility] 3 18:13:26 Anxiety 29644882 Active EDELMIRA [place] [facility] 1 10:32:38 Folliculitis 56242478 Active Wendy Del Valle [place] [facility] 1 10:32:38 Dyspareunia 43528841 Active EDELM[place] [facility] 1 10:32:38 Hordeolum externum of lower eyelid 505717948 Active EDELM[place] [facility] 1 10:32:38 Right upper quadrant pain 902833438 Active EDELM[place] [facility] 1 10:32:38 Breast lump 76953474 Active Wendy Del Valle [place] [facility] 1 10:32:38 Essential hypertension 62185179 Active 2017 EDELMIRA [place], [place] [facility] 3 09:38:07 Abnormal cervical Papanicolaou smear with human papillomavirus deoxyribonucle ic acid detected 026446927 Active EDELM[place] [facility] 1 10:32:38 Dysmenorrhea 583224561 Active EDE[place] [facility] 1 10:32:38 Problem Notes None recorded. 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 INSPECTOR completed Xin Luna [facility] Attn: Accounting, [address] [place], [address], [facility] - [facility] 06/28/2016 09:53:17 06/28/19 17 Other completed Kelley Gracia MA MD - [facility] 06/28/2016 09:15:13 03/17/20 16 Colposcopy completed Pushpa Munoz [facility] Attn: Accounting, [address] [place], [address], [facility] - [facility] 03/17/2016 11:09:36 Other completed Kelley Gracia MA MD - [facility] 06/28/2016 09:14:47 Tubal Ligation completed Kelley Gracia MA MD - [facility] 06/28/2016 09:15:20 Imaging Results None recorded. Procedure Notes None recorded. Medical Equipment None Reported. Allergies Allergen ID Allergen Name Allergen Category Reaction Reaction Severity Criticality Documentation Date Start Date Code Code System Note Provider Name and Address Organization Details Recorded Time [id number] lisinopri l medicatio n other Not available Not available 02/20/2018 94754 RxNorm stoma ch pains Not Available Not Available Not Available [id number] amlodipin e medicatio n dizziness other Not available Not available Not available 02/20/2018 40297 RxNorm Irvin in BP Not Available Not Available Not Available [id number] tramadol medicatio n hives moderate Not available 08/31/20182017 12035 RxNorm Not Available Not Available Not Available [id number] epoxy resin environme nt hives Not available Not available 11/03/2021 16318 UNK Not Available Not Available Not Available [id number] penicilli n G Not available hives Not available Not available 06/14/2014 7980 RxNorm Not Available Not Available Not Available [id number] Substance with sulfonami de structure and antibacte rial mechanism of action (substanc e) medicatio n Not available Not available Not available 06/14/2014 03426 8003 SNOMED Not Available Not Available Not Available [id number] egg extract food,medi cation hives moderate Not available 06/28/20162017 89771 15 RxNorm Not Available Not Available Not Available Medications Name Sig Start Date Stop Date Status Note LastModified by Organization Details LastModified Time Miralax 17 gram oral powder packet Take 1 packet every day by oral route in the morning for 20 days. 2023 active Not Available Not Available Not Avai lable celecoxib 200 mg capsule Take 1 capsule every day by oral route for 30 days. 06/03 completed Not Available Not Available Not Available cyclobenz aprine 10 mg tablet TAKE 1 TABLET BY MOUTH THREE TIMES DAILY NEEDED FOR 10 DAYS 06/03 completed Not Available Not Available Not Available medroxypr ogesteron e 10 mg tablet TAKE 1 TABLET BY MOUTH ONCE DAILY 06/14 completed Not Available Not Available Not Available fluconazo le 100 mg tablet TAKE 2 TABLETS BY MOUTH ONCE DAILY ON DAY 1, THEN TAKE ONE TABLET DAILY ON DAYS 2-7. 11/03 completed Not Available Not Available Not Available atorvasta tin 40 mg tablet Take 1 tablet every day by oral route. 09/05 completed Not Available Not Available Not Available atorvasta tin 80 mg tablet TAKE 1 TABLET BY MOUTH ONCE DAILY active Not Available Not Available No t Available doxycycli ne hyclate 100 mg capsule TAKE 1 CAPSULE BY MOUTH TWICE A DAY FOR 10 DAYS 03/02 completed Not Available Not Available Not Available Depo-Medr ol 40 mg/mL suspensio n for injection Take 2 mL by injectio n route. 03/04 completed Not Available Not Available Not Available clindamyc in HCl 300 mg capsule TAKE 1 CAPSULE BY MOUTH EVERY 6 HOURS UNTIL GONE 04/14 completed Not Available Not Available Not Available albuterol sulfate 2.5 mg/3 mL (0.083 %) solution for nebulizat ion USE 1 VIAL IN NEBULIZE R THREE TIMES DAILY NEEDED 06/03 completed Not Available Not Available Not Available azithromy santo 250 mg tablet TAKE 2 TABLETS BY MOUTH THE FIRST DAY,THEN TAKE 1 TABLET BY MOUTH DAILY FOR 4 DAYS 03/04 completed Not Available Not Available Not Available ibuprofen 800 mg tablet TAKE 1 TABLET (800 MG) BY MOUTH 3 (THREE) TIMES A DAY NEEDED FOR PAIN AND SWELLING . 02/11 completed on meloxica m Not Available Not Available Not Available fluconazo le 150 mg tablet TAKE 1 TABLET BY MOUTH ONCE DAILY FOR 1 DOSE REPEAT IN 7 DAYS IF SYMPTOMS PERSIST 11/03 completed Not Available Not Available Not Available metoprolo l succinate ER 50 mg tablet,ex tended release 24 hr Take 1 tablet every day by oral route. 07/04 completed Not Available Not Available Not Available hydrocodo ne 5 mg-acetam inophen 325 mg tablet TAKE 1 TABLET BY MOUTH FOUR TIMES A DAY NEEDED FOR PAIN FOR UP TO 12 DOSES 02/15 completed Not Available Not Available Not Available Keflex 500 mg capsule Take 1 capsule every 8 hours by oral route for 10 days. 06/17 completed Not Available Not Available Not Available ondansetr on HCl 8 mg tablet Take 1 tablet every 8 hours by oral route as needed for 5 days. 10/14 completed Not Available Not Available Not Available meloxicam 15 mg tablet TAKE 1 TABLET BY MOUTH EVERY DAY active Not Available Not Available No t Available phenazopy ridine 200 mg tablet TAKE 1 TABLET BY MOUTH 3 TIMES A DAY NEEDED FOR PAIN 11/03 completed Not Available Not Available Not Available lisinopri l 20 mg tablet Take 1 tablet every day by oral route for 90 days. 10/04 completed Not Available Not Available Not Available prednison e 20 mg tablet TAKE 2 TABLETS BY MOUTH DAILY FOR 4 DAYS 06/03 completed Not Available Not Available Not Available isosorbid e mononitra te ER 30 mg tablet,ex tended release 24 hr TAKE 1 2 (ONE HALF) TABLET BY MOUTH ONCE DAILY 09/05 completed Not Available Not Available Not Available triamcino lone acetonide 0.025 % lotion 03/04 completed Not Available Not Available Not Available clindamyc in HCl 150 mg capsule Take by oral route for 21 days. 11/03 completed Not Available Not Available Not Available hydralazi ne 25 mg tablet Take 1 tablet 3 times a day by oral route. 10/14 completed Not Available Not Available Not Available metronida zole 500 mg tablet TAKE 1 TABLET BY MOUTH TWICE DAILY FOR 7 DAYS 06/14 completed Not Available Not Available Not Available lidocaine HCl 2 % mucosal jelly APPLY TOPICALL Y IN THE GROIN AREA NEEDED FOR PAIN UP TO 20 DOSES 06/03 completed Not Available Not Available Not Available hydroxyzi ne HCl 50 mg tablet TAKE 1 TABLET BY MOUTH EVERY 6 HOURS NEEDED FOR ITCHING 06/14 completed Not Available Not Available Not Available acetamino phen 300 mg-codein e 30 mg tablet TAKE 1-2 TABLETS EVERY 6 HOURS NEEDED FOR PAIN NOT RELIEVED BY IBUPROFE N ALONE. TAKE WITH FOOD. active Not Available Not Available No t Available clopidogr el 75 mg tablet TAKE 1 TABLET BY MOUTH ONCE DAILY 11/03 completed Not Available Not Available Not Available amlodipin e 5 mg tablet Take 1 tablet every day by oral route for 90 days. 08/31 completed Not Available Not Available Not Available ciproflox acin 500 mg tablet TAKE 1 TABLET BY MOUTH TWICE DAILY FOR 5 DAYS 03/02 completed Not Available Not Available Not Available aspirin 81 mg tablet,de layed release Take 1 tablet every day by oral route. 11/03 completed Not Available Not Available Not Available tramadol 50 mg tablet TAKE 1 TABLET BY MOUTH EVERY 4 HOURS NEEDED FOR PAIN 11/03 completed Not Available Not Available Not Available triamcino lone acetonide 0.1 % topical cream APPLY CREAM EXTERNAL LY TWICE DAILY 06/14 completed Not Available Not Available Not Available Depo-Medr ol 80 mg/mL suspensio n for injection Take 1 mL by injectio n route. 10/14 completed Not Available Not Available Not Available ketorolac 10 mg tablet TAKE 1 TABLET BY MOUTH EVERY 6 HOURS NEEDED active Not Available Not Available No t Available Guaiatuss in AC 10 mg-100 mg/5 mL oral liquid Take 10 mL every 4 hours by oral route for 10 days. 03/10 completed Not Available Not Available Not Available clonidine HCl 0.2 mg tablet Take 1 tablet twice a day by oral route for 30 days. 09/12 completed Not Available Not Available Not Available famotidin e 20 mg tablet Take 1 tablet twice a day by oral route for 30 days. 10/14 completed Not Available Not Available Not Available benzocain e 15 mg lozenges Take 1 lozenge 3 times a day by mucous route for 30 days. 05/13 completed Not Available Not Available Not Available gabapenti n 800 mg tablet TAKE 1 TABLET BY MOUTH THREE TIMES A DAY 06/03 completed Not Available Not Available Not Available ciproflox acin 0.3 % eye drops 3 drops to affected eye tid for 7 days 02/09 completed Not Available Not Available Not Available dexametha sone 1 mg tablet TAKE 1 TABLET BY MOUTH AT 11PM THE NIGHT BEFORE BLOOD TEST 11/03 completed Not Available Not Available Not Available amlodipin e 10 mg tablet TAKE 1 TABLET BY MOUTH ONCE DAILY active Not Available Not Available No t Available benzonata te 100 mg capsule TAKE 1 CAPSULE BY MOUTH THREE TIMES DAILY NEEDED 11/03 completed Not Available Not Available Not Available doxycycli ne monohydra te 100 mg capsule TAKE 1 CAPSULE (100 MG TOTAL) BY MOUTH 2 (TWO) TIMES A DAY FOR 6 DOSES 06/03 completed Not Available Not Available Not Available dexametha sone 2 mg tablet Take 1 mg every day by oral route. 06/28 completed Not Available Not Available Not Available levothyro xine 50 mcg tablet Take 1 tablet every day by oral route for 90 days. 10/04 completed Not Available Not Available Not Available pantopraz ole 40 mg tablet,de layed release Take 1 tablet twice a day by oral route. 10/14 completed Not Available Not Available Not Available esomepraz ole magnesium 40 mg capsule,d elayed release Take 1 capsule every day by oral route. 10/14 completed Not Available Not Available Not Available triamcino lone acetonide 0.1 % topical ointment APPLY TOPICALL Y TWO TIMES DAILY TO VULVA 11/03 completed Not Available Not Available Not Available misoprost ol 200 mcg tablet Take 1 tablet twice a day by oral route for 30 days. 08/31 completed Not Available Not Available Not Available metoprolo l tartrate 50 mg tablet Take 1 tablet twice a day by oral route for 90 days. 08/31 completed Not Available Not Available Not Available progester one micronize d 200 mg capsule TAKE 1 CAPSULE BY MOUTH ONCE DAILY 05/13 completed Pt stopped Not Available Not Available Not Available nicotine 21 mg/24 hr daily transderm al patch Apply 1 patch every day by transder mal route for 14 days. 01/12 completed Not Available Not Available Not Available nitroglyc lizet 0.4 mg sublingua l tablet DISSOLVE ONE TABLET UNDER THE TONGUE EVERY 5 MINUTES NEEDED FOR CHEST PAIN. DO NOT EXCEED A TOTAL OF 3 DOSES IN 15 MINUTES active Not Available Not Available No t Available mupirocin calcium 2 % topical cream APPLY A SMALL AMOUNT TO THE AFFECTED AREA BY TOPICAL ROUTE 3 TIMES PER DAY FOR 10 DAYS 03/13 completed Not Available Not Available Not Available docusate sodium 100 mg capsule TAKE 1 CAPSULE BY MOUTH THREE TIMES DAILY BEFORE MEAL(S) FOR 15 DAYS active Not Available Not Available No t Available gabapenti n 300 mg capsule TAKE 1 CAPSULE BY MOUTH THREE TIMES DAILY 06/03 completed Not Available Not Available Not Available lidocaine HCl 2 % mucosal solution APPLY 5 ML TO THE MOUTH OR THROAT EVERY 4 HOURS NEEDED FOR TOOTH PAIN FOR UP TO 10 DAYS active Not Available Not Available No t Available aspirin 81 mg chewable tablet TAKE 1 TABLET BY MOUTH EVERY DAY active Not Available Not Available No t Available diclofena c sodium 75 mg tablet,de layed release Take 1 tablet twice a day by oral route for 30 days. 09/12 completed Not Available Not Available Not Available hydrocort isone 2.5 % topical cream APPLY A THIN LAYER TO THE AFFECTED AREA(S) BY TOPICAL ROUTE 2 TIMES PER DAY 11/03 completed Not Available Not Available Not Available hydroxyzi ne HCl 25 mg tablet TAKE 1 TABLET BY MOUTH THREE TIMES DAILY NEEDED active Not Available Not Available No t Available clobetaso l 0.05 % topical ointment APPLY A THIN LAYER TO ITCHY AREA AT GROIN 2-3 TIMES DAILY NEEDED FOR ITCH. STOP USING AFTER BEING ITCH-NIKKO E FOR 1 WEEK 11/03 completed Not Available Not Available Not Available ibuprofen 600 mg tablet TAKE 1 TABLET BY MOUTH EVERY 8 HOURS NEEDED FOR PAIN 11/03 completed Not Available Not Available Not Available polyethyl dawna glycol 3350 17 gram/dose oral powder DISSOLVE 1 CAPFUL OF POWDER IN WATER & DRINK IN THE MORNING FOR 20 DAYS active Not Available Not Available No t Available methylpre dnisolone 4 mg tablets in a dose pack TAKE BY MOUTH DIRECTED ON INSIDE OF PACKAGE 05/13 completed Not Available Not Available Not Available albuterol sulfate HFA 90 mcg/actua tion aerosol inhaler INHALE 2 PUFFS BY MOUTH EVERY 4 HOURS NEEDED 05/13 completed Not Available Not Available Not Available colchicin e 0.6 mg tablet Take 1 tablet twice a day by oral route. 10/14 completed Not Available Not Available Not Available ketorolac 60 mg/2 mL intramusc ular solution Inject 1 mL by intramus cular route. 06/03 completed Not Available Not Available Not Available lisinopri l 40 mg tablet 40 mg by oral route. 09/16 completed Not Available Not Available Not Available ondansetr on 4 mg disintegr ating tablet active Not Available Not Available Not Available cefdinir 300 mg capsule Take 1 capsule every 12 hours by oral route for 7 days. 05/13 completed Not Available Not Available Not Available Diflucan 200 mg tablet Take 1 tablet every 72 hours by oral route. 02/26 completed Not Available Not Available Not Available atenolol 50 mg tablet TAKE 1 TABLET BY MOUTH ONCE DAILY active Not Available Not Available No t Available naproxen 500 mg tablet Take 1 tablet by mouth twice daily. Take with food. 11/03 completed Not Available Not Available Not Available diazepam 5 mg tablet Take 2.5 mg by oral route. 11/03 completed Not Available Not Available Not Available amoxicill in 875 mg-potass ium clavulana te 125 mg tablet Take 1 tablet every 12 hours by oral route for 10 days. 04/14 completed Not Available Not Available Not Available Toradol 10 mg tablet Take 1 tablet every 6 hours by oral route. 10/14 completed Not Available Not Available Not Available azithromy santo 500 mg tablet TAKE 1 TABLET BY MOUTH ONCE DAILY FOR 3 DAYS 11/03 completed Not Available Not Available Not Available nicotine 21mg/24hr -14mg/24h r-7mg/24h r daily transderm patches,s equentl Apply 1 patch every day by transder mal route as directed . 10/14 completed Not Available Not Available Not Available nitrofura ntoin monohydra te/macroc rystals 100 mg capsule TAKE 1 CAPSULE BY MOUTH TWICE DAILY UNTIL GONE 11/03 completed Not Available Not Available Not Available chlorhexi dine gluconate 0.12 % mouthwash SWISH AND SPIT OUT 15 ML TWICE DAILY TO MUCOUS MEMBRANE FOR 15 DAYS active Not Available Not Available No t Available Nexium 11/03 completed Not Available Not Available Not Available ranolazin e ER 500 mg tablet,ex tended release,1 2 hr TAKE 1 TABLET BY MOUTH TWICE A DAY 01/12 completed Not Available Not Available Not Available FeroSul 325 mg (65 mg iron) tablet TAKE 1 TABLET BY MOUTH ONCE DAILY active Not Available Not Available No t Available Mucinex DM 60 mg-1,200 mg tablet,ex tended release 12 hr Take 1 tablet twice a day by oral route as needed for 10 days. 11/03 completed Not Available Not Available Not Available Lysteda 650 mg tablet Take 2 tablets 3 times a day by oral route with meals for 15 days. 05/26 completed Not Available Not Available Not Available ticagrelo r 90 mg tablet Take 1 tablet twice a day by oral route. 10/14 completed Not Available Not Available Not Available Chantix Starting Month Box 0.5 mg (11)-1 mg (42) tablets in dose pack Take 1 startr pk by oral route as directed . 10/14 completed Not Available Not Available Not Available BinaxNOW COVID-19 Ag Self Test kit TEST DIRECTED TODAY 06/14 completed Not Available Not Available Not Available Vitals Date Recorded Body height Provider Name an d Address Organization Details Last Updated DateTime 06/03/2022 170.18 cm Trista Luna [facility] 16:30:56 Date Recorded Body mass index (BMI) Body weight Provider Name and Address Organization Details Last Updated DateTime 06/03/2022 34.3 kg/m2 26298.08 g Trista Luna MA [facility] 06/03/2022 16:31:05 Date Recorded Heart rate Provider Name an d Address Organization Details Last Updated DateTime 06/03/2022 68 /min Trista Luna MA [facility] 16:31:09 Date Recorded Body temperature Provider Name a nd Address Organization Details Last Updated DateTime 06/03/2022 98.3 [degF] Trista Luna MA [facility] 2021 16:31:16 Date Recorded Respiratory rate Provider Name a nd Address Organization Details Last Updated DateTime 06/03/2022 20 /min Trista Luna MA [facility] 16:31:19 Date Recorded Body height Provider Name an d Address Organization Details Last Updated DateTime 01/12/2023 170.18 cm Ariela Roberts MA [facility] 01/12 16:37:44 Date Recorded Body mass index (BMI) Body weight Provider Name and Address Organization Details Last Updated DateTime 01/12/2023 35.4 kg/m2 826028.59 g Ariela Roberts MA [facility] 01/12/2023 16:37:53 Date Recorded Respiratory rate Provider Name a nd Address Organization Details Last Updated DateTime 01/12/2023 16 /min Ariela Roberts MA [facility] 01/12/2023 16:43:41 Date Recorded Oxygen saturation Oxygen saturation in Arterial blood by Pulse oximetry Provider Name and Address Organization Details Last Updated DateTime 01/12/2023 100 % 100 % Ariela Roberts MA [facility] 01/12/2023 16:44:01 Date Recorded Heart rate Provider Name an d Address Organization Details Last Updated DateTime 01/12/2023 58 /min EDELMIRA Quiroz [facility] 01/12 16:44:05 Date Recorded Body height Provider Name an d Address Organization Details Last Updated DateTime 02/11/2023 170.18 cm Halima Walker MA [facility] 08:58:23 Date Recorded Body mass index (BMI) Body weight Provider Name and Address Organization Details Last Updated DateTime 02/11/2023 35.3 kg/m2 323112.03 g Halima Walker MA [facility] 02/11/2023 08:58:32 Date Recorded Respiratory rate Provider Name a nd Address Organization Details Last Updated DateTime 02/11/2023 16 /min Halima Walker MA [facility] 09:03:57 Date Recorded Body temperature Provider Name a nd Address Organization Details Last Updated DateTime 02/11/2023 98.3 [degF] Halima Walker MA [facility] 02/12/20 09:05:02 Date Recorded Oxygen saturation Oxygen saturation in Arterial blood by Pulse oximetry Provider Name and Address Organization Details Last Updated DateTime 02/11/2023 99 % 99 % Halima Walker MA [facility] 02/11/2023 09:05:03 Date Recorded Heart rate Provider Name an d Address Organization Details Last Updated DateTime 02/11/2023 60 /min Halima Walker MA [facility] 09:05:13 Date Recorded Body height Provider Name an d Address Organization Details Last Updated DateTime 04/14/2023 170.18 cm Alexa Siddiqui MA [facility] 2022 10:05:29 Date Recorded Body mass index (BMI) Body weight Provider Name and Address Organization Details Last Updated DateTime 04/14/2023 35.2 kg/m2 051318.49 g Alexa Siddiqui MA [facility] 04/14/2023 10:09:43 Date Recorded Heart rate Provider Name an d Address Organization Details Last Updated DateTime 04/14/2023 71 /min Alexa Siddiqui MA [facility] 2022 10:11:16 Date Recorded Body temperature Provider Name a nd Address Organization Details Last Updated DateTime 04/14/2023 98.1 [degF] Alexa Siddiqui MA [facility] 04/14/2023 10:11:20 Date Recorded Respiratory rate Provider Name a nd Address Organization Details Last Updated DateTime 04/14/2023 16 /min Alexa Siddiqui MA [facility] 04/14/2023 10:11:22 Date Recorded Body height Provider Name an d Address Organization Details Last Updated DateTime 05/13/2023 170.18 cm Halima Walker MA [facility] 3 09:51:02 Date Recorded Body mass index (BMI) Body weight Provider Name and Address Organization Details Last Updated DateTime 05/13/2023 34.6 kg/m2 684209.61 g Halima Walker MA [facility] 05/13/2023 09:51:08 Date Recorded Body temperature Provider Name a nd Address Organization Details Last Updated DateTime 05/13/2023 98.3 [degF] Halima Walker MA [facility] 05/13/20 09:54:17 Date Recorded Oxygen saturation Oxygen saturation in Arterial blood by Pulse oximetry Provider Name and Address Organization Details Last Updated DateTime 05/13/2023 99 % 99 % Halima Walker MA [facility] 05/13/2023 09:54:20 Date Recorded Respiratory rate Provider Name a nd Address Organization Details Last Updated DateTime 05/13/2023 16 /min Halima Walker MA [facility] 3 09:54:23 Date Recorded Heart rate Provider Name an d Address Organization Details Last Updated DateTime 05/13/2023 61 /min Halima Walker MA [facility] 09:54:41 Date Recorded Body height Provider Name an d Address Organization Details Last Updated DateTime 06/14/2023 170.18 cm Alexa Siddiqui MA [facility] 2023 15:43:18 Date Recorded Body mass index (BMI) Body weight Provider Name and Address Organization Details Last Updated DateTime 06/14/2023 35.7 kg/m2 336678.41 g Alexa Siddiqui MA [facility] 06/14/2023 15:43:23 Date Recorded Heart rate Provider Name an d Address Organization Details Last Updated DateTime 06/14/2023 65 /min Alexa Siddiqui MA [facility] 2023 15:49:46 Date Recorded Body temperature Provider Name a nd Address Organization Details Last Updated DateTime 06/14/2023 96.2 [degF] Alexa Siddiqui MA [facility] 06/14/2023 15:49:53 Date Recorded Respiratory rate Provider Name a nd Address Organization Details Last Updated DateTime 06/14/2023 16 /min Alexa Siddiqui MA [facility] 06/14/2023 15:49:56 Date Recorded Systolic blood pressure Diastolic blood pressure Provider Name and Address Organization Details Last Updated DateTime 06/03/2022 140 mm[Hg] 70 mm[Hg] Trista Luna MA [facility] 06/03/2022 16:32:20 Date Recorded Systolic blood pressure Diastolic blood pressure Provider Name and Address Organization Details Last Updated DateTime 01/12/2023 125 mm[Hg] 82 mm[Hg] Ariela Roberts MA [facility] 01/12/2023 16:44:04 Date Recorded Systolic blood pressure Diastolic blood pressure Provider Name and Address Organization Details Last Updated DateTime 02/11/2023 128 mm[Hg] 79 mm[Hg] Halima Walker MA [facility] 02/11/2023 09:05:27 Date Recorded Systolic blood pressure Diastolic blood pressure Provider Name and Address Organization Details Last Updated DateTime 04/14/2023 125 mm[Hg] 82 mm[Hg] Alexa Siddiqui MA [facility] 04/14/2023 10:11:13 Date Recorded Systolic blood pressure Diastolic blood pressure Provider Name and Address Organization Details Last Updated DateTime 05/13/2023 117 mm[Hg] 76 mm[Hg] Halima Walker MA [facility] 05/13/2023 09:54:43 Date Recorded Systolic blood pressure Diastolic blood pressure Provider Name and Address Organization Details Last Updated DateTime 06/14/2023 138 mm[Hg] 83 mm[Hg] Alexa Siddiqui MA [facility] 06/14/2023 15:49:40 Social History Question Answer Notes LastModified by Organizat ion Details LastModified Time Tobacco Smoking Status Current Every Day Smoker Verónica Zacarias MA null, [facility] 06/14/2014 11:12:13 Do You Have An Advance Directive? No Information not available 01/12/2023 What Is Your Level Of Alcohol Consumption? None Information not available 09/06/2019 Are You Blind Or Do You Have Difficulty Seeing? No Information not available 09/05/2020 What Is Your Level Of Caffeine Consumption? Moderate Information not available 09/06/2019 How Much Tobacco Do You Chew? None Information not available 09/06/2019 In The 14 Days Before Symptom Onset, Have You Had Close Contact With A Laboratory-confi rmed COVID-19 While That Case Was Ill? No Information not available 09/06/2019 If Patient Spent Time In [facility] - Does The Patient Live In [facility]? No Information not available 09/06/2019 In The 14 Days Before Symptom Onset, Have You Had Close Contact With A Person Who Is Under Investigation For COVID-19 While That Person Was Ill? No Information not available 09/06/2019 In The 14 Days Before Symptom Onset, Did The Patient Spend Time In [facility]? No Information not available 09/06/2019 Have You Been To An Area Known To Be High Risk For COVID-19? No Information not available 09/06/2019 Are You Currently Employed? No [email or web address] Information not available 11/03/2021 Are You Deaf Or Do You Have Serious Difficulty Hearing? No Information not available 09/05/2020 What Type Of Diet Are You Following? REGULAR Information not available 09/05/2020 Which Illicit Or Recreational Drugs Have You Used? No THC Information not available 09/06/2019 Do You Or Have You Ever Used E-cigarettes Or Vape? 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 No Information not available 01/12/2023 Marital Status Informatio n not available 09/06/2019 What Was The Date Of Your Most Recent Tobacco Screening? 06/14/2023 Information not available 06/14/2023 What Is Your Relationship Status? Information not available 09/05/2020 Do You Use Your Seat Belt Or Car Seat Routinely? Yes Information not available 09/05/2020 Are You Sexually Active? No Information not available 01/12/2023 Do You Have Smoke And Carbon Monoxide Detectors In Your Home? Yes Information not available 03/04/2021 Are You Passively Exposed To Smoke? Yes Information not available 03/04/2021 Do You Or Have You Ever Used Smokeless Tobacco? Never Used Smokeless Tobacco Information not available 12/10/2019 How Much Tobacco Do You Smoke? 0.25 PPD Information not available 01/12/2023 General Stress Level High Information not available 09/06/2019 Do You Feel Stressed (tense, Restless, Nervous, Or Anxious, Or Unable To Sleep At Night)? [id number] Information not available 09/05/2020 Do You Use Any Illicit Or Recreational Drugs? Yes Marijuana-R silviano Information not available 06/14/2023 Do You Use Sunscreen Routinely? No Information not available 02/15/2022 Has Tobacco Cessation Counseling Been Provided? Yes [email or web address] Information not available 09/12/2018 On What Date Was Tobacco Cessation Counseling Provided? 06/14/2023 Information not available 06/14/2023 How Many Years Have You Smoked Tobacco? 35 [email or web address] Information not available 06/14/2014 Do You Or Have You Ever Used Any Other Forms Of Tobacco Or Nicotine? No Information not available 03/04/2021 Sex: Female Functional Status Question Answer Note LastModified by Organizat ion Details LastModified Time Are you able to care for yourself? Yes Information not available 09/05/2020 What is your exercise level? Occasional Information not available 09/05/2020 Mental Status None recorded. Family History Nothing Reported Notes:Hx of CVA, Heart Disea se, HTN, Hyperlipidemia, Gallbladder disease, Lung Cancer Medical History Condition Response Coronary Artery Disease N Other N Atrial Fibrillation N High Blood Pressure Y Thyroid Problems Y Kidney or Bladder Problems N GI Problems N Depression Y COPD N Blood Clots N Eating Disorder N Skin Problems N Anemia N Heart Attack ([place]) N Diabetes N Anxiety Disorder Y Muscle, Joint, or Bone Problems N Seizures/Epilepsy N Acid Reflux (GERD) N Cancer N Stroke N Asthma N Allergies Y ADHD N Substance Abuse N High Cholesterol Y Hepatitis N Liver Disease N Schizophrenia N Headaches N Osteoporosis N Heart Failure N Gynecological History Statement/Question Response Abnormal Pap Yes Date of Last Mammogram 06/06/2018 Date of LMP 02/11/2023 On BCP's at Conception? N STIs/STDs No HPV Vaccine N Duration of Flow (days) 7 Most Recent Mammogram 02/11/2017 Age at Menarche 13 Current Control Method Tubal Ligat ion Age at First Child 20 Sexually Active? Y Menses Monthly Y Date of Last Pap Smear 06/06/2020 Sexual Problems? N LMP Approximate Desired Control Method None Obstetrics History GPAL:G 4 P 3 0 1 3 Type Value Full Term 3 Induced 1 Living 3 Total 4 Immunizations Vaccine Type Date Status Note Provider Nam e and Address Organization Details Recorded Time Tdap 06/14/2014 completed Not Available [facility] 06/23/2019 02:30:17 Past Encounters Encounter ID Performer Location Encounter Start Date Encounter Closed Date Diagnosis/Indication Diagnosis SNOMED-CT Code Diagnosis ICD10 Code Diagnosis Note [id number] [facility] [address] [place] [address] 06/14/2014 10:54:43 06/17/2014 17:19:18 Upper respiratory infection [id number] [facility] [address] [place] [address] 08/05/2014 16:41:29 08/09/2014 13:57:41 Upper respiratory infection 72860150 [id number] Ximena Alberto [facility] [address] [place] [address] 08/19/2014 10:20:29 08/19/2014 11:09:20 Upper respiratory infection 53089392 Anxiety [id number] [facility] [address] [place] [address] 09/10/2014 10:40:35 09/10/2014 11:33:30 Upper respiratory infection 80184840 Folliculitis 12423594 [id number] Ximena Alberto [facility] [address] [place] [address] 10/15/2014 11:10:32 10/15/2014 12:01:00 Dyspareunia [id number] Leon Mensah PA-C [facility] [address] [place] [address] 07/18/2015 10:32:01 07/18/2015 11:05:23 Upper respiratory infection 56914416 J06.9 [id number] Leon Mensah PA-C [facility] [address] [place] [address] 01/09/2016 14:37:53 01/09/2016 15:47:37 Hordeolum externum of lower eyelid 787667172 H00.019 Right uppe r quadrant pain 896215526 R10.11 [id number] Leon Mensah PA-C [facility] [address] [place] [address] 02/10/2016 10:56:58 02/10/2016 11:55:11 Breast lump 06602070 N63 Anxiety 39787215 F41.9 Essential hypertension 41705227 I10 [id number] Leon Mensah PA-C [facility] [address] [place] [address] 03/03/2016 16:52:14 03/03/2016 17:28:42 Gynecologic examination 02772364 Z01.748 [id number] Pushpa Munoz [facility] Sony Salazar ([place] [address]) [address] [facility] [place] [address] 03/17/2016 10:20:08 03/17/2016 11:10:31 Abnormal cervical Papanicolaou smear with human papillomavirus deoxyribonucleic acid detected 311353991 R87.619 Dysmenorrhea 143365968 N 94.6 [id number] SKINNY Harry Sony Salazar ([facility]) [address] [facility] [place] [address] 04/09/2016 10:20:15 04/09/2016 14:03:32 Thyroid disorder screening 053901962 Z13.29 Dysmenorrhea 231692015 N 94.6 [id number] Pushpa Munoz [facility] Sony Salazar ([facility] [address]) [address] [facility] [address] [place] [address] 05/11/2016 08:56:34 05/14/2016 11:24:42 Furuncle of breast 76092629 N61.1 patient has taken keflex in the past with no problem [id number] VANDANA Fletcher [address] [place] [address] 05/26/2016 10:44:53 05/26/2016 12:59:33 Cellulitis of head 961030923 L03.768 [id number] VANDANA Fletcher [address] [place] [address] 06/17/2016 11:09:28 06/17/2016 12:51:41 Essential hypertension 14267300 I10 Acute bronchitis 9001391 2 J20.0 [id number] Xin Luna [facility] Sony Salazar ([facility] [address]) [address] [place] [address] 06/28/2016 08:59:23 06/28/2016 12:21:49 Cervicovaginal cytology: Low grade squamous intraepithelial lesion 436038894 R87.612 Dysmenorrhea 927964154 N 94.6 [id number] VANDANA Fletcher [address] [place] [address] 07/01/2016 10:25:06 07/01/2016 17:27:56 Essential hypertension 77119015 I10 [id number] VANDANA Fletcher [address] [place] [address] 07/29/2016 09:42:26 07/29/2016 10:49:06 Upper respiratory infection 87373562 J00 [id number] Xin Luna [facility] Sony Salazar ([facility] [address]) [address] [facility] [place] [address] 10/04/2016 09:04:36 10/04/2016 17:54:35 Abnormal cervical Papanicolaou smear 616207603 R87.828 [id number] MD Sony Bansal ([facility] 205) [address] [facility] [place] [address] 02/15/2017 10:33:02 02/15/2017 14:22:27 Low grade squamous intraepithelial lesion on cervical Papanicolaou smear 4244018462 9105 R87.724 [id number] VANDANA Flecther [address] [place] [address] 03/10/2017 10:12:47 03/10/2017 11:15:11 Essential hypertension 94513364 I10 Chronic re current sinusitis 582150350 J32.9 Generalize d anxiety disorder 39519197 F41.1 [id number] VANDANA Fletcher [facility] [address] [place] [address] 03/17/2017 10:31:49 03/17/2017 13:26:30 Essential hypertension 74784563 I10 [id number] Gutierrez Del Valle MD [facility] ([place] [address]) [address] [facility] [address] [place] [address] 05/06/2017 11:26:41 05/06/2017 13:09:40 Postoperative visit 981328324 Z09 [id number] EDELMIRA Huerta [address] [place] [address] 08/31/2017 14:20:37 08/31/2017 16:05:56 Adrenal mass 937243277 R19.09 Essential hypertension 93045256 I10 [id number] Leon Mensah PA-C [facility] [address] [place] [address] 02/20/2018 15:04:56 02/20/2018 16:13:33 Essential hypertension 86604432 I10 Generalize d anxiety disorder 06228501 F41.1 [id number] VANDANA Fletcher [address] [place] [address] 08/31/2018 10:31:43 08/31/2018 12:48:32 Venereal disease screening 132136436 Z11.3 Generalize d anxiety disorder 40110915 F41.1 Osteoarthritis 385430870 M15.0 Essential hypertension 68179753 I10 [id number] VANDANA Fletcher [address] [place] [address] 09/12/2018 10:16:09 09/12/2018 12:43:20 Coronary arteriosclerosis in [place] artery 0929091212 107 I25.10 Folliculitis 44208896 L7 3.9 Nausea and vomiting 1693 2000 R11.2 [id number] Gutierrez Del Valle MD [facility] [address] [facility] [address] [facility] [place] [address] 10/09/2018 11:45:32 10/10/2018 08:15:27 Gynecologic examination 53198563 Z01.419 Screening for malignant neoplasm of breast 902279701 Z12.31 Menorrhagia 364777689 N9 2.0 Dysmenorrhea 975726130 N 94.6 [id number] Leon Mensah PA-C [facility] [address] [place] [address] 03/13/2019 17:54:37 03/13/2019 19:23:21 Essential hypertension 37771830 I10 [id number] Leon Mensah PA-C [facility] [address] [place] [address] 04/10/2019 17:39:50 04/10/2019 18:42:07 Essential hypertension 25004405 I10 Coronary arteriosclerosis 24096255 I25.10 Mass of le ft adrenal gland 9634013875 7076546 E27.8 [id number] Leon Mensah PA-C [facility] [address] [place] [address] 07/04/2019 14:54:21 07/05/2019 11:21:54 Essential hypertension 23804766 I10 Pain of ri ght shoulder joint 9982746077 7737210 M25.851 [id number] Leon Mensah PA-C [facility] [address] [place] [address] 09/06/2019 10:49:32 09/06/2019 12:31:55 Coronary arteriosclerosis in [place] artery 5866386798 107 I25.10 Dyspnea on exertion 6084 5006 R06.09 Pain of ri ght shoulder joint 4388989153 1337783 M25.511 Pain in right arm 233572 004 M79.601 Essential hypertension 46589944 I10 [id number] VANDANA Feltcher [address] [place] [address] 09/20/2019 10:25:32 09/26/2019 11:57:56 Coronary arteriosclerosis in [place] artery 1714994657 107 I25.10 Osteoarthritis 749202048 M15.0 [id number] Leon Mensah PA-C [facility] [address] [place] [address] 10/15/2019 11:17:44 10/15/2019 13:03:25 Right lower quadrant pain 076821102 R10.31 Coronary arteriosclerosis in [place] artery 0261162025 107 I25.10 [id number] Wendy Del Valle MA [facility] [address] [place] [address] 12/05/2019 16:06:37 12/06/2019 09:33:41 Osteoarthritis 306157343 M15.0 [id number] Leon Mensah PA-C [facility] [address] [place] [address] 12/10/2019 14:40:38 12/10/2019 16:11:13 Essential hypertension 81552930 I10 Abnormal c ervical Papanicolaou smear with human papillomavirus deoxyribonucleic acid detected 691988130 R87.619 Mass of le ft adrenal gland 8560633643 2861998 E27.8 Lumbosacra l radiculopathy 7538648 M54.17 [id number] Leon Mensah PA-C [facility] [address] [place] [address] 02/27/2020 11:50:02 02/27/2020 12:54:54 Bilateral shoulder joint pain 4345378157 0337975 M25.511 Atypical chest pain 1025 70848 R07.89 Essential hypertension 89780449 I10 [id number] Leon Mensah PA-C [facility] [address] [place] [address] 09/05/2020 12:00:27 09/09/2020 10:31:23 Furuncle of groin 26979646 L02.224 Pruritic rash 88065503 L 28.2 Essential hypertension 36432509 I10 [id number] Leon Mensah PA-C [facility] [address] [place] [address] 03/04/2021 10:23:32 03/04/2021 11:25:49 Suspected COVID-19 150059432 Z03.89 [id number] Leon Mensah PA-C [facility] [address] [facility] [place] [address] 11/03/2021 14:21:29 11/03/2021 15:12:33 Low back pain 659205234 M54.59 Backache w ith radiating pain 536560348 M54.07 Spasm of back muscles 20 4501238 M62.608 [id number] Leon Mensah PA-C [facility] [address] [place] [address] 02/15/2022 11:24:07 02/15/2022 12:52:59 Backache with radiating pain 238017693 M54.05 Obesity 580058479 E66.9 Overweight 743921345 E66 .3 [id number] XOCHILT JO MD [place] [address] [facility] [address] [place] [address] 06/03/2022 16:02:00 06/08/2022 14:30:31 Urinary tract infectious disease 58514755 N39.0 Possible, recently completed abx, increased frequency and changes in color/turb idity.- Have encouraged to drink more fluids- Will check urine and treat appropriat melissa. Infection of tooth 07090 8007 K04.7 Continue with Lidocaine mouth wash, will also give lozenges to help with mouth pain.Pt completed 7 day Doxy 5d prednisone for cellulitis : improved.P oor dentition with periodonti tis, pain will on go away when she can see a dentist.- Follow up in 2 weeks after dentis Osteoarthritis 044716004 M19.90 Needs refill on medication .- Pt has tolerated in the past. Have educated to not take with other forms of NSAIDs. Have also advised she take with pepcid or PPI to protect against GI ulcer. She said she has some at home and will start taking. She expressed her understand ing. Smoker 36528969 F17.200 Pt has been smoking 1pk/d for long time. Been smoking since teenager. Would like to quit and askes for assistance .- Will give patches. [id number] MD Sony LOCK 14 IM [address] [facility] [address] [place] [address] 02/11/2023 08:44:57 02/21/2023 13:35:07 Obesity 268634620 E66.9 healthy lifestyle encouraged including regular exercise of at least 150min per week, diet rich in plant based foods and low in added sugars, processed carbohydra zhao, and high salt foods. Edema of l ower extremity 456627379 R60.0 LE edema for the past 2 weeks- b/l , non tender. No hx of clots. No family history of clots. No long distance travel.--> no respirator y issues- no SOB( pt with hx of cad s/p stent, last echo was in 2019 with normal EF, will repeat echo and get probnp.bobby l also get d dimer to rule out DVT- if d dimer is elevated will get dvt ulstraound of LE. Infection of tooth 96939 8007 K04.7 . Poor dentition with periodonti tis and mutiple broken teeth and abscess noted on right 1st and 2nd molar. Dentist apt is apr 05.pt with severe pain due to infection of upper left tooth.- Will give Peridex mouth wash solution 15d while pt waits for dental surgerywil l also send lidocaine viscous mucosal and benzocaine .pt educated on red flag and if severe headache present, or swelling noted in the face, changes in vision, hearing to go to the ER for evaluation abx for infection: unable to give penicillin due to hives , sulfa ( also hives and issues with breathing) pt has taken augmentin in the past will prescribe Essential hypertension 42699047 I10 currently on amlodipine 10mg, atenolol 50BP well controlled today ( 128/79)--> pt with LE edema that is recent for the past 2 weeks, has been on amlodipine since 2019. less likely a side effect of amlodipine - Multi vess el coronary artery disease 972976178 I25.10 hx of CAD s/p stentFollo ws with cardiology Dr. Bennett.curr ently on BB ( atenolol 50), aspirin 81, statin ( atorvastat in 80) Hyperlipidemia 03833915 E78.5 currently on atorvastat in 80 mgwill get a lipid panel [id number] MD Sony LOCK 14 IM [address] [facility] [address] [place] [address] 04/14/2023 10:00:11 04/27/2023 08:55:50 Infection of tooth 907613669 K04.7 Poor dentition with bad periodonti tis and mutiple broken teeth. She has seen her dentist who has postponed the extraction of the teeth till end of Jul 2022. Discontinu ed clindamyci n that was given by dentist due to potential drug reaction, though unlikely.- Start cefdinir 10d and metronidaz ole 7days- Will give Peridex mouth wash solution 15d while pt waits for dental surgery end of jul. Urticaria 448101897 L50. 9 Patient under increased stress recently and has history of rash onset after stressful event. Given that the patient has used clindamyci n for months at a time prior to this recent event, it is not likely that the urticaria is due to a drug reaction. Counseled the patient to use hydroxyzin e to manage the itching. Informed her that it can cause drowsiness but may relieve some of the stress response as well. Iron defic iency anemia 11813403 D50.9 Last Hb was 10.9 on 02/11/23Cont inue iron supplement 65 mg. Counseled patient that it is okay to take every other day to avoid constipati on. Willing to workup cause of anemia if cardiologi st does not. Will follow up at next visit in May. High gluco se level in blood 022602768 R73.9 Per patient, cardiology did an A1C that was 6.5. Previous level in clinic was 6.3 on 02/11/23.Fol low up in May 2023 to recheck and do full diabetic workup including diabetic foot exam and nutritiona l counseling . Patient is willing to meet with a dietitian. - Discussed benefits of weight loss and to include 40 minutes of moderate physical activity at least 40 minutes 4-5 times a week. Essential hypertension 48560958 I10 Managing with amlodipine 10 mg and atenolol 50 mg daily. BP well controlled today, 125/82. SARS-CoV-2 mRNA vaccine declined 9141799780 Z28.21 Influenza vaccination declined 875390150 Z28.21 [id number] MD Sony Lange 14 IM [address] [facility] [address] [place] [address] 05/13/2023 09:42:09 05/20/2023 12:55:40 Obesity 986658394 E66.9 BMI: 34.6Have spoken with pt about the health risks associated with having an elevated BMI and educated them about lifestyle modificati on with diet and exercise.- Have encouraged pt to stay active at least x4 days a week totaling at least x40min/adan e if able to tolerate.- Have also advised portion control, increased consumptio n of fruits and vegetables with each meal: at least 4-5 servings a day. Limited meat consumptio n (lean meat over red meat). Decreased carbohydra te consumptio n and Increased consumptio n of food containing natural fiber.- Have educated pt to look at [place] diet as example of healthy balanced diet example and provided informatio n.- Have offered nutritioni st consult: Pending- Have provided handouts for life style modificati on and the [place] diet.- Have advised about food tracking yonathan to help set healthy weight goals and stay accountabl e- Have advised pt to stay hydrated and to try and drink x5-7 (12oz glasses of water day) Infection of tooth 60385 8007 K04.7 Poor dentition with bad periodonti tis and mutiple broken teeth. She has seen her dentist who has postponed the extraction of the teeth till end of Jul 2022. Discontinu ed clindamyci n that was given by dentist due to potential drug reaction, though unlikely.- Completed cefdinir 10d and metronidaz ole 7days- Will give Peridex mouth wash solution TID jul. Essential hypertension 83678654 I10 BP at goal and well controlled today, 117/76- Managing with amlodipine 10 mg and atenolol 50 mg daily. Anemia 879224281 D64.9 History of CHAYO, pt not taking supplement s. Will get B12 and Folate as well to rule out underlinin g macrocytos is in the setting of CHAYO.- Will treat as needed. High gluco se level in blood 065161975 R73.9 Per patient, cardiology did an A1C that was 6.5. Previous level in clinic was 6.3 on 02/11/23.Pat ient is willing to meet with a nutritioni st will send.- Will get A1c today to rule in DM.- Discussed benefits of weight loss and to include 40 minutes of moderate physical activity at least 40 minutes 4-5 times a week.- If shows have DM will get complete DM workup eye/foot exams, baseline labs etc. [id number] Alicia Cruz MD [place] [address] IM [address] [facility] [address] [place] [address] 06/14/2023 15:31:32 07/11/2023 14:35:43 Postoperative visit 056616785 Z09 Healing Lap rubia port incisions. Dry, intact, no discharge, no dehiscence , no surroundin g erythema, foul smell. normal post operative discomfort . She has had constipati on secondary to T3. Not on bowel regiment. Plan- Pain management Tylenol 3 q4-6hrs per surgeon- Tylenol 1000mg q6 max 4g. Have explained that T3 have 300mg of tylenol.- ibuprophen after one week.- Start miralax and Dulcolax daily for constipati on. Health Concerns Section Related Observation LastModified by Organization Detai ls LastModified Time None Recorded Concern Status LastModified by Organization Details LastModified Time None Recorded Advance Directives Directive N: Payers Encounter Date Sequence Insurance Name Policy Number Policy Garzon Covered Member ID Garzon Member ID Guarantor Name 06/03/2022 1 [employer] [facility] (MEDICAID HMO) [id number] Pamdini Barbara Dierking [id number] Padmini Barbara Dierking 02/11/2023 1 [employer] (MEDICAID HMO) [id number] Padmini Barbara Dierking [id number] Padmini Barbara Dierking 04/14/2023 1 [employer] (MEDICAID HMO) [id number] Padmini Barbara Dierking [id number] Padmini Barbara Dierking 05/13/2023 1 [employer] (MEDICAID HMO) [id number] Padmini Barbara Dierking [id number] Padmini Barbara Dierking 06/14/2023 1 [employer] [facility] (MEDICAID HMO) [id number] Padmini Barbara Dierking [id number] Padmini Barbara Dierking Notes Date Note Type Note Provider Name and Address Organization Details Recorded Time 06/03/2022 text/html Follow up from hospital visit were she was treated for R cheek cellulitis in the setting of what looks swelling like periodontitis. Still complaining of Tooth pain, but her cheek has much improved swelling.Finished course of abx and steroids. Lidocain mouth wash; has not been using. Chlohexadine spray hurt so she stopped taking. Has follow up apt in 06/09/22. Pt has a history of migraines and would like to come back and get on some medications. She also reports that she has had some change in urine since starting her abx. Pt denies any fever, chills, night sweats, changes in vision, cough, dysphagia, CP, palpitations, SOB, CVA tenderness, Abd discomfort, n/v/d/c, fatigue, weakness. XOCHILT JO MD Attn: [address] [place], [address], [facility] 06/09/2022 12:34:51 02/11/2023 text/html 52 y/o F PMH CAD s/p stent, HTN, HLD, gastric ulcer, smoker, anxietypresents for acute visit with chief complain of abscess in left upper tooth. It has been there since last year off and on and it is getting worse. Has an apt with dentist is apr 05. Reports that the abscess was initially draining but it is not. The plan is to pull out all her teeth and get dentures.Reports taking meloxicam and tylenol for pain.Previously the lidocaine mouth wash helped and would like another prescription. LE edema- 2 weeks of b/; Le edema. New symptom has not had this before. No SOB. Reports that she is sleeping reclined with 2 pillows. The swelling gets worse through out the day. No tenderness to the calf muscles. No long distance travel. No Blood clot history. No family history of blood clots. XOCHILT JO MD Attn: [address] [place], [address], [place] [facility] 02/17/2023 21:41:54 04/14/2023 text/html Ms. Torres is a 52 yo female who presents for follow up after hospital visit for rash. She states that she was prescribed clindamycin by her dentist for a periodontal infection on 04/05 Has taken before, and had been taking for 2 days before presentation of rash. On day of presentation symptoms started about 30 minutes after taking the antibiotic 04/07. With in 30 min she started having intense itching on her chest and first noticed the rash while she was having a stressful phone call. She states the rash started on her chest and spread to her upper arms and neck. She is not aware of any new products or foods that she was exposed to at that time. She endorses some burning and raw sensation of the rash but denies any blistering. After the rash was not resolving after a day, she went to be evaluated at the ED and states they told her they were unsure if the rash was due to the drug or to stress. She notes that in 2010, 4-5 hours after mother broke out in a rash from stress that was similar to this rash. She has been using oral benadryl and benadryl cream to manage the itching. She was given a steroid at the ED but due to stomach pain and acid reflux that occurred after taking it, she has has not continued to use it. She also stopped taking the clindamycin after the day the rash appeared. She contacted her dentist about the rash but they did not prescribe her a different antibiotic. She endorses worsening swelling and pain of her gums since discontinuing the antibiotic. She states she is having multiple teeth removed in July 2022. She has been dealing with dental infections for over a year now and has been on clindamycin for months at a time in the past without any side effects. Cold started 6 days ago - congestion, sneezing, coughing, nausea, sore throat, maybe fever on the first day because felt like she was burning up. Her daughter also has similar symptoms. She also endorses dyspnea on exertion and fatigue. She denies CP, swelling, vomiting, diarrhea or changes in vision. Ms. Torres notes that her sourcing engineer told her she has T2DM after doing an A1c that was 6.5%. She has concerns about how to manage diabetes and what to do about her diet. She is not currently exercising. XOCHILT JO MD Attn: [address] [place], [address], [facility] 04/22/2023 11:30:07 05/13/2023 text/html CC: tooth pain History of poor dentition.Dental extraction planned 07/30/23She states that she was prescribed clindamycin by her dentist for a periodontal infection on 04/05. Since then she has had worsening pain in teeth. Dentist in planning to do multiple teeth extractions and root canals scheduled in 07/30/2023. No sooner apt available. She has been dealing with dental infections for years and in past has taken clindamycin for months at a time without any side effects. She has sensitivity to hot and cold, sugary food, has been trying to keep her mouth clean. Denies drug use. Current smoker.05/13/23: She was not able to get otc mouth wash and ask for a rx. She asks for something to help numb her gums. Pain with eating, increased sensitivity, still smoking. Pain all the time. No fevers, chills, night sweats, n/v. Possible DM vs PreDM.Ms. Torres notes that her sourcing engineer told her she has T2DM after doing an A1c that was 6.5%. She has concerns about how to manage diabetes and what to do about her diet. She is not currently exercising. Has been doing LM since being told. She has lost 4lbs since last apt. She says she was told she needs workup for her anemia by her sourcing engineer but has not gotten the labs. She would like to get them today if that is possible. Amna Milton MD Attn: [address] [place], [address], [facility] 05/19/2023 20:28:00 06/14/2023 text/html CC: Postop Tulio novak Presented to [facility] ED with and pain. Was confirmed to have gallstones and was referred to Surgery. Dr. Parag Metz, 06/10/23. No complications, Tylenol 3. Abx were given in post operative period which she has completed. Still having pain. Not taking meds correctly. She is still has some pain pills left. Having constipation now. Passing gas, no blood in stool. No N/V/D/C, no changes in urination, no fever, chills, night sweats. Alicia Cruz MD Attn: [address] [place], [address], [facility] 07/09/2023 10:07:08 OBGyn Episode No OBEpisode recorded.
--- OUTSIDE RECORDS SUMMARY | 2024-07-03 19:09 | XMS_ITS | Patient Health Summary ---
Author Organization [facility] Address [address] [place] [address] Care Team Providers Care Commercial Carpenter Name Role Phone Unavailable Primary Care Provider Unavailabl e Note from [facility],non-owned Affiliates and Associated Physician Practices is amultiple site organization consisting of ambulatory clinics and hospital sitesin [place], [place], [place] and [place]. This disclosure is being madepursuant to the Care Everywhere program and may not contain all information available regarding this patient. Last updated 18.[facility] Social History Tobacco Use Types Packs/Day Years Used Date Smoking Tobacco: Never Assessed Sex and Gender Information Value Date Recorded Sex Assigned at Not on file Gender Identity Not on file Sexual Orientation Not on file Procedures * US BREAST RIGHT LTD(Performed 02/12/2016) Performed for Breast lump * MAMMO BILAT DIAGNOSTIC(Performed 02/12/2016) Performed for Breast lump Results * US BREAST RIGHT LTD (02/12/2016 1:54 PM CDT) Anatomical Region Laterality Modality Breast Right Ultrasound 02/12/2016 1:47 PM CDT Narrative 02/12/2016 4:00 [...] participate in the care of your patient. [facility] Breast Care utilizes [employer] as a reminder system to notify patients of their next recommended mammogram. I, Rhonda Webster, have personally reviewed the images and I agree with this report. Procedure Note Amna Webster MD - 02/12/2016 EXAMINATION: Digital bilateral diagnostic mammogram and right [...] images 3/65 on the LM view and on the [...] participate in the care of your patient. [facility] Breast [facility] utilizes [employer] as a reminder system to notify patients of their next recommended mammogram. I, Rhonda Webster, have personally reviewed the images and I agree with this report. Ginette Bro MD US ORDERABLES * VIRIDIANA DIAG DIRECT DIG IMAGE BILATERAL [...] tomosynthesis images on the LM view and / on the CC view. No architectural distortion [...] participate in the care of your patient. [facility] Care utilizes [employer] as a reminder system to notify patients of their next recommended mammogram. I, Rhonda Webster, have personally reviewed the images and I agree with this report. Ginette Bro MD MAMMO ORDERABLES
--- OUTSIDE RECORDS SUMMARY | 2024-07-03 19:09 | XMS_ITS | Clinical Summary ---
Author Organization [facility] Address [address] [place] [address] Care Team Providers Care Head Filter Press Tender Name Role Phone Danyelle Cristobal MD Unavailable [phone] Antonio Moon DO Unavailable [phone] Aditya Mensah Primary Care Provider [phone] Mike Arias MD Unavailable [phone] Miscellaneous, Not In File Unavailable Unava ilable [...] w/ path IVON III. Path reviewed at [facility] and in agreement. 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 The diagnosis reviewed with patient Check 1 mg dexamethasone suppression test If condition stable then will be checked again in one year. Assessment & Plan (08/04/2020 10:23 AM RETAIL COSMETICS SALES COUNTER MANAGER): Left adrenal adenoma detected in early [...] (12/26/2020): Added automatically from request for surgery [id number] Assessment & Plan (12/05/2019 10:38 AM CDT): Colonoscopy showed diverticulosis, one adenoma polyp, and internal hemorrhoids. There was no evidence of active diverticulitis. Pt says she continues to get this RLQ pain that starts with her menstrual period and stops once her cycle is over. No GI source of pain. Pt advised to see reconnaissance crewmember as this is likely reconnaissance crewmember origin given it only occurs during menstruation. [...] for about 14 years. Likely related to reconnaissance crewmember issue but will do colonoscopy to rule out GI issues. Pt encouraged to make reconnaissance crewmember appt. She says she has an appointment in January. Acute diverticulitis 10/22/2019 Overview (10/22/2019): Added automatically from request for surgery [id number] Assessment & Plan (10/22/2019 11:08 AM CDT): [...] nutrition consultation Coronary artery disease invo lving [place] coronary artery of [place] heart without angina pectoris 09/26/2019 Assessment & [...] atenolol Assessment & Plan (08/05/2021 10:26 AM RETAIL COSMETICS SALES COUNTER MANAGER): Controlled with medication Complicated with CAD- had stent placed. ?? Plan: ?? Continue same medication and follow up with PCP and cardiology Assessment & Plan (08/04/2020 10:24 AM RETAIL COSMETICS SALES COUNTER MANAGER): Controlled with medication Complicated with CAD- [...] Date Resolved Date Dental abscess 04/05/2022 05/25/2022 Surgical History Surgery Date Site/Laterality Comments TUBAL LIGATION 06/06/2005 - 06/05/2006 Bilateral CERVICAL BIOPSY W/ LOOP ELEC TRODE EXCISION 06/06/2016 - 06/05/2017 N/A CARDIAC CATHETERIZATION 06/06/2018 - 06/05/2019 COLONOSCOPY 11/28/2019 CARDIAC STENT PLACEMENT 06/06/2018 - 06/05/2019 x3 Medical History Medical History Date Comments Hx Other Medical contraception Thyroid disease Hypertension Smoking History of stomach ulcers Anxiety Coronary artery disease Hyperlipidemia COPD (chronic obstructive pulmonary disease) (HC C) Motion sickness rare Family History Medical History Relation Name Comments Other Father carotid artery disease; Cirrhosis Mother Cirrhosis; Other Mother NOLASCO; /aplastic anemia; /Cancer -gallbladder; Stroke Mother Stroke; Stroke Other 1 Family history of Stroke; Other Other 2 Family history of Cancer -Hodgkin's disease; Breast cancer Other 3 great aunt Anesthesia problems Neg Hx Relation Name Status Comments Father Mother Alive Other 1 Other 2 Other 3 great aunt Social History Tobacco Use Types Packs/Day Years [...] 05/24/2022 How often do you attend chur or scientology services? Never 05/24/2022 Do you belong to any clubs o r organizations such as cheondoism groups, unions, fraternal or athletic groups, or [...] place to sleep or slept in a care home (including now)? No 05/24/2022 Personal Safety Answer [...] on file Legal Sex Female 12:30 AM RETAIL COSMETICS SALES COUNTER MANAGER Gender Identity Female 01/17/2020 4:14 PM CDT Sexual Orientation Straight 01/17/2020 4: 14 PM CDT Obstetrics History Para Term AB IAB SAB Ectopic Multiple Livin g Live Births 4 3 3 1 1 3 3 Date Outcome GA Total Labor Labor/2nd/3rd Weight Sex Type Anes PTL Ryanne A1 A5 Name Clin Term Vag-S pont Living Term Vag-S pont Living Term Vag-S pont Living IAB D&C Last Filed Vital Signs Vital Sign Reading [...] 10/09/2023 2:03 PM CDT Plan of Treatment Health Maintenance Due Date Last Done Comments Pneumococcal vaccine <65 (1 of 2 - PCV) 12/02/1977 Hepatitis B Screening 12/02/1989 Regular Well Visit/Exam 18-64 12/02/1989 Breast Cancer Screening-Mammogram 09/12/2018 018 Cervical Cancer Screening 09/19/2021 09/19/2020 Zoster Vaccine (1 of 2) 12/02/2021 Depression Screening 11/29/2022 11/29/2021, 09/06/19 19 Influenza Vaccine (#1) 2024 DTaP/Tdap/Td Vaccine (2 - Td or Tdap) 06/14/202402/2015 Colon Cancer Screening-Colonoscopy 11/27/20292019 Hepatitis C Screening Completed 08/15/2017 Medical Devices Implanted Type Area Director Environmental Device Identifier Shelf Expiration Date Model / Serial / Lot Reader Scientific Mino [id number] Synergy 2.5mm 12mm 144cm Radiopaque 1 Access Port Inflation Lumen - [id number] Implanted:Qty: 1 on 09/07/2018 by Sulaiman Lynch MD at [facility] Stent [employer] Mino 11/23/2019 [id number] / / [id number] [employer] [id number] System Coronary Stent Xience Isabel Everolimus L8 Mm Od3.5 Mm Rapid Exchange - [id number] Implanted:Qty: 1 on 09/07/2018 by Sulaiman Lynch MD at [facility] Stent [employer] 04/09/2019 [id number] / / [id number] [employer] Mino [id number] Synergy 2.25mm 12mm 144cm Radiopaque 1 Access Port Inflation - [id number] Implanted:Qty: 1 on 09/07/2018 by Sulaiman Lynch MD at [facility] Stent [employer] Mino 04/17/2020 [id number] / / [id number] Procedures Procedure Name Priority Date/Time Associated Diagnosis [...] PM CDT Narrative 10/03/2020 9:02 AM CDT EPIC results best viewed via link to PDF [facility] Preeti [facility] [place] [address] [place] [address] CYTOPATHOLOGY REPORT FINAL Patient Name: ??CASS TORRES Gender: ??F : ??1970 (Age: 49) Address: ??[address] [place], [place] ??[address] Hospital #: ??[id number] Service: ??Oncology Location: ??[facility] Patient Type: ??[facility] Ancillary Taken: ??09/19/2020 Received: ??09/19/2020 Accessioned: ??09/22/2020 [...] 68. ??These HPV tests were performed at [facility] in [place], [place] utilizing the Gen-Probe Aptima assay. This specimen has been rescreened in accordance with this laboratory's Senior Telecommunications Consultant Program. 10/03/2020 09:02 TAY Renner, CT(ASCP)[facility] Report Electronically Reviewed and Signed Out By Marlen English M.S.,CT(ASC) 10/03/2020 09:02:45 Cervicovaginal Cytology (Pap Test) Disclaimer: [...] dysplasia. The HPV test was performed by [facility], [address] [place] [address]. Report Images and scanned documents, if included only viewable in PDF version The performance characteristics of some immunohistochemical stains, in-situ hybridization and fluorescence in-situ hybridization tests and immunophenotyping by flow cytometry cited in this report (if any) were determined by the Surgical Pathology Department at [facility] as part of an ongoing research quality assurance analyst program and in compliance with federally mandated [...] determined by the Surgical Pathology Department of [facility]. ??It has not been cleared or approved by the U. S. Food and Drug Administration. us Notinfile Unknown LAB CYTOLOGY ORDERABLES Final Result * COLONOSCOPY (11/28/2019 9:16 AM CDT) Anatomical Region Laterality Modality Other Narrative Procedure Note Danyelle Cristobal MD - 11/28/2019 9:16 AM CDT [facility] Patient Name: Cass Torres Procedure Date: 11/28/2019 9:16 AM Date of : 1970 Admit Type: Outpatient Age: 48 Gender: Female Attending MD: Danyelle Cristobal M.D. Room: [facility] ENDOSCOPY ROOM 1 Note Status: Finalized Patient [...] passed under direct vision.The Pediatric Colonoscope [id number]-H190L [id number] was introduced through the anus and advanced [...] 9:16 AM Procedure Code(s): --- Professional --- 12603, Colonoscopy, flexible; with removal of tumor(s), polyp(s), or other lesion(s) by snare technique Diagnosis Code(s): --- Professional --- K64.8, Other hemorrhoids D12.5, Benign neoplasm of sigmoid colon R10.31, Right lower quadrant pain K57.30, Diverticulosis of large intestine without perforation orabscess without bleeding CPT copyright 2017 [employer]. All rights reserved. The codes documented in this report are preliminary and upon machinery engineer reviewmay be revised to meet current compliance requirements. Recognized by the [place] [employer] for promoting quality in endoscopy Danyelle Cristobal MD ENDOSCOPY PROCEDURES Final Result * Screening Mammogram Bilateral W Gee (09/12/2017 11:29 AM CDT) Anatomical Region Laterality Modality Breast Bilateral Mammography Addenda Addendum by Thom Castillo MD on 09/19/2017 3:24 PM CDT ADDENDUM #1 Comparison to previous mammogram at [facility] in [facility] on 02/12/2016 shows a similar [...] tomosynthesis. COMPARISON: None available. ??Previous mammogram at [facility] in [place], [place]; not brought today for comparison. FINDINGS: [...] tomosynthesis. COMPARISON: None available. ??Previous mammogram at [facility] in [place], [place]; not brought today for comparison. FINDINGS: [...] system to notify patient's of yearly mammograms. Ryanne Aguila MD IM MAMMO PROCEDURES Edited Result - Final * Hepatitis panel, acute (08/15/2017 12:57 PM CDT) Hep A IgM Negative Negative [facility] Comment:Testing performed by : [facility], [address] [place] [address]., [id number] Hep B core IgM Negative Negative [facility] Comment:Testing performed by : [facility], [address] [place] [address]., [id number] Hep C Ab Negative Negative [facility] Comment:Testing performed by : [facility], [address] [place] [address], [address] HepBsAg Negative Negative [facility] Comment:Testing performed by : [facility], [address] [place] [address], [id number] Blood specimen (specimen) 08/15/2017 12:57 PM CDT 08/15/2017 7:02 PM CDT Narrative [facility] - 08/15/2017 8:46 PM CDT Kellie Maguire MD LAB MICROBIOLOGY - GENERAL OR DERABLES Final Result [facility] 1 [facility] Department [place] [address] from Last 3 Months or Most Recently Relevant to Health Maintenance Insurance [facility] Advance Directives For more information, please contact: [phone] * Full Code (Latest Code Status on [...] 8:33 AM 11/28/2019 8:33 AM Care Teams Head Filter Press Tender Relationship Specialty Start Date End Date Aditya Mensah PA [address] [place] [address] PCP - General Family Practice 05/23/22 Danyelle Cristobal MD Consulting Physician Gastroenterology 08/16/17 Antonio Moon DO [address] [place] [address] DR ROBB [address] [place] [address] Cardiovascular Disease 09/07/18 Mike Arias MD [address] [place] [address] Resident Family Medicine 05/25/22 Miscellaneous, Not In File 08/26/22
[2024-07-03] MEDS: diazePAM INJ (*CRX) 10 MG/2 ML SYRINGE 5 MG IM (19:40)
[2024-07-03] MEDS: LIDOCAINE 5% PATCH 1 PATCH TRANSDERM (19:40)
== END 2024-07-03 19:50 | disposition home or self-care (01) ==
PROVIDERS: Emergency Provider Emergency Medicine
DX: S16.1XXA Strain of muscle, fascia and tendon at neck level, initial encounter (principal); M79.602 Pain in left arm; X58.XXXA Exposure to other specified factors, initial encounter
CPT/HCPCS: 71046; 72125; 73030; 96372; 99284; A9270; J3360

== ENCOUNTER 2024-07-05 01:39 | Emergency (ER) | payer SELFPAY ==
--- NOTE | ~2024-07-05 | CT_ITS ---
EXAMINATION: CT shoulder LT wo con DATE: 07/05/2024 03:25 INDICATION: Left shoulder pain TECHNIQUE: Computed tomography (CT) of the left shoulder was performed without intravenous contrast. The dose-length product was 521.70 mGy-cm. Automated exposure control and iterative reconstruction te chnique were employed. COMPARISON: Left shoulder series dated 07/03/2024 FINDINGS: No acute fracture, subluxation or dislocation. There is anatomic alignment of the shoulder. There are groundglass opacities in the visualized lung, differential diagnosis includes pneumonia, e mary and small airway disease. There is atherosclerosis of the aorta. IMPRESSION: 1. No acute abnormality of the left shoulder. 2: Patchy groundglass opacities throughout the visualized lung. Differential diagnosis includes pneum onia, edema and small airway disease. Reviewed, dictated and finalized at location A. IT[facility] AUDIT REPRESENTATIVE IMPRESSION: 1. No acute abnormality of the left shoulder. 2: Patchy groundglass opacities throughout the visualized lung. Differential di agnosis includes pneumonia, edema and small airway disease.
--- OUTSIDE RECORDS SUMMARY | 2024-07-05 01:41 | XMS_ITS | Clinical Summary ---
Author Organization [facility] Address [address] [place] [address]. [place] [address] [place] [address] Care Team Providers Care Assistant Professor In Family Studies Name Role Phone None, Provider MD Primary [...] times daily. 100 g 11/18/19 24 Active atenolol (TENORMIN) 50 MG tablet [...] within 12 hours or as directed by 30 patch 05/07/20 24 Active albuterol sulfate HFA 108 (90 Base) MCG/ACT inhaler INHALE 2 PUFFS BY MOUTH EVERY 6 HOURS NEEDED 9 g 06/19/19 25 Active amLODIPine (NORVASC) 5 MG tablet Take 1 tablet by mouth once daily 90 tablet 1 07/04/19 25 Active atorvastatin (LIPITOR) 80 MG tablet Take 1 tablet by mouth once daily 90 tablet 1 07/04/19 25 Active isosorbide mononitrate ER (IMDUR) 30 MG 24 hr tablet Take 1 tablet by mouth once daily 90 tablet 1 07/04/19 25 Active amLODIPine (NORVASC) 5 MG tablet Take 1 tablet by mouth once daily 90 tablet 1 12/27/19 24 025 Discontinued isosorbide mononitrate ER (IMDUR) 30 MG 24 hr tablet Take 1 tablet by mouth once daily 90 tablet 1 12/30/19 24 025 Discontinued atorvastatin (LIPITOR) 80 MG tablet Take 1 tablet by mouth once daily 90 tablet 03/26/20 24 025 Discontinued albuterol sulfate HFA 108 (90 Base) MCG/ACT inhaler INHALE 2 PUFFS BY MOUTH EVERY 6 HOURS NEEDED 9 g 05/28/20 24 025 Discontinued Active Problems Problem Noted Date Diagnosed Date Cholecystitis 06/10/2023 Abnormal stress test 01/23/2021 Anxiety 01/23/2021 Chest pain 02/21/2020 Coronary artery disease invo lving [place] coronary artery of [place] heart without angina pectoris 09/26/2019 Mixed hyperlipidemia [...] Department Care Team Description 06/27/2024 8:00 PM EMPLOYMENT SPECIALIST - 06/27/2024 10:55 PM EMPLOYMENT SPECIALIST Emergency [facility] [place] [address] Sandy, Sandie, DO Neck Pain; Shoulder Pain Discharge Disposition: Left Against Medical Advice 06/27/2024 Travel 05/11/2024 [facility]phone [facility], [address] [address] Angelica Santana, JAVA SCALA DEVELOPER Results 05/07/2024 4:43 PM EMPLOYMENT SPECIALIST - 05/07/2024 6:44 PM EMPLOYMENT SPECIALIST Emergency [facility] [place] [address] Brayan Jewell MD Abdominal Pain Discharge Disposition: Home or Self Care (Routine Discharge) 05/07/2024 Travel 04/11/2024 10:45 AM EMPLOYMENT SPECIALIST [facility], [address] [address] Jaciel Palmer MD Coronary Artery Disease (Follow up); Lipids; Hypertension 04/11/2024 Travel 04/06/2024 1:00 PM CDT [facility] [address] [address] Jaciel Palmer MD Holter Monitor 04/06/2024 8:26 AM CDT - 04/06/2024 11:59 PM CDT Hospital Encounter [facility] [place] [address] Jaciel Palmer MD Discharge Disposition: Home or [...] drink = 0.6 oz pur e alcohol) [facility] Utilities Answer Date Recorded In the past 12 months has th e electric, gas, oil, or water company threatened to shut off services in your [...] place to sleep or slept in a senior living (including now)? No 06/10/2023 Comments No Sex and Gender Information Value Date Recorded Sex Assigned at Female 06/27/2024 6:08 PM EMPLOYMENT SPECIALIST Legal Sex Female 11:31 AM CDT Gender Identity Not on file Sexual Orientation Not on file Last Filed Vital Signs Vital Sign Reading Time Taken Comments Blood Pressure 152/83 06/27/2024 5:24 PM EMPLOYMENT SPECIALIST Pulse 68 06/27/2024 5:24 PM EMPLOYMENT SPECIALIST Temperature 36.7 ??C (98.1 ??F) 06/27/2024 5:24 PM CS T Respiratory Rate 20 06/27/2024 5:24 PM EMPLOYMENT SPECIALIST Oxygen Saturation 100% 06/27/2024 5:24 PM EMPLOYMENT SPECIALIST Inhaled Oxygen Concentration - - Weight 105.7 kg (233 lb 0.4 oz) 06/27/2024 5:24 PM EMPLOYMENT SPECIALIST Height 170.2 cm (5' 7 ) 06/27/2024 5:24 PM EMPLOYMENT SPECIALIST Body Mass Index 36.5 06/27/2024 5:24 PM EMPLOYMENT SPECIALIST Plan of Treatment Upcoming Encounters Date Type Department Care Team (Late st Contact Info) Description 10/10/2024 11:00 AM CDT Office Visit [facility], [address] [phone] Jaciel Palmer MD [facility]. 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 Procedure Name Priority Date/Time Associated Diagnosis Comments XR CHEST PA OR AP 1V STAT 06/27/2024 6:26 PM EMPLOYMENT SPECIALIST XR SHOULDER LT 3V STAT 06/27/2024 6:2 6 PM EMPLOYMENT SPECIALIST TROPONIN, QUANT STAT 06/27/2024 6:02 PM EMPLOYMENT SPECIALIST COMPREHENSIVE METABOLIC PANEL STAT 06/27/2024 6:02 PM EMPLOYMENT SPECIALIST CBC W/DIFF AUTOMATED STAT 06/27/2024 6:02 PM EMPLOYMENT SPECIALIST ECG 12-LEAD Routine 06/27/2024 5:56 PM EMPLOYMENT SPECIALIST HC URINALYSIS AUTO W/O MICRO STAT 05/07/2024 5:43 PM EMPLOYMENT SPECIALIST LIPASE STAT 05/07/2024 5:43 PM EMPLOYMENT SPECIALIST D-DIMER, QUANTITATIVE STAT 05/07/2024 5:43 PM EMPLOYMENT SPECIALIST TROPONIN, QUANT STAT 05/07/2024 5:43 PM EMPLOYMENT SPECIALIST COMPREHENSIVE METABOLIC PANEL STAT 05/07/2024 5:43 PM EMPLOYMENT SPECIALIST CBC W/DIFF AUTOMATED STAT 05/07/2024 5:43 PM EMPLOYMENT SPECIALIST XR CHEST PORTABLE STAT 05/07/2024 5:2 1 PM EMPLOYMENT SPECIALIST ECG 12-LEAD STAT 05/07/2024 5:01 PM EMPLOYMENT SPECIALIST EVENT RECORDER (ECG) UP TO 30 DAYS COMPLETE Routine 04/25/2024 7:47 AM EMPLOYMENT SPECIALIST Palpitations USE ECHOCARDIOGRAM Routine 04/06/2024 9: 14 AM CDT Chest pain, unspecified type LIPID PANEL Routine 04/06/2023 12:06 PM CDT Coronary artery disease involving [place] coronary artery of [place] heart without angina pectoris from Last 3 Months or Most Recently Relevant to Health Maintenance Results * XR CHEST PA OR AP 1V (06/27/2024 6:26 PM EMPLOYMENT SPECIALIST) Anatomical Region Laterality Modality Chest Radiographic Inez ging 06/27/2024 6:58 PM EMPLOYMENT SPECIALIST Impressions 06/27/2024 7:00 PM EMPLOYMENT SPECIALIST Impression: No acute findings. Referred By: ?? Interpreted By: Gaurav Maya MD, 06/27/2024 6:58 PM Narrative 06/27/2024 7:00 PM EMPLOYMENT SPECIALIST [address] [address] Examination: Chest 1 view portable History: Shoulder pain DATE/TIME: 06/27/2024 6:12 PM Comparison: May 07, 2024 Technique: AP portable view of the chest was obtained. Findings: Heart size, mediastinal contours and pulmonary vasculature are within normal limits. ??No pulmonary consolidation, pleural effusion or pneumothorax. ??No acute osseous abnormality. Procedure Note Gaurav Maya MD - 06/27/[address] [address] Examination: Chest 1 view portable History: Shoulder pain DATE/TIME: 06/27/2024 6:12 PM Comparison: May 07, 2024 Technique: AP portable view of the chest was obtained. Findings: Heart size, mediastinal contours and pulmonary vasculature arewithin normal limits. No pulmonary consolidation, pleural effusion orpneumothorax. No acute osseous abnormality. Impression: No acute findings. Referred By: Interpreted By: Gaurav Maya MD, 06/27/2024 6:58 PM Michelle Jay JAVA SCALA DEVELOPER GENERAL IMAGING Final Resul t * XR SHOULDER LT 3V (06/27/2024 6:26 PM EMPLOYMENT SPECIALIST) Anatomical Region Laterality Modality Shoulder Radiographic Inez ging 06/27/2024 7:00 PM EMPLOYMENT SPECIALIST Impressions 06/27/2024 7:02 PM EMPLOYMENT SPECIALIST IMPRESSION: No acute findings. Referred By: ?? Interpreted By: Gaurav Maya MD, 06/27/2024 7:00 PM Narrative 06/27/2024 7:02 PM EMPLOYMENT SPECIALIST [address] [address] EXAMINATION: XR SHOULDER LT 3V HISTORY: Pain after injury DATE: 06/27/2024 6:12 PM COMPARISON: None TECHNIQUE: AP, Grashey and scapular Y views of the left shoulder. ??3 images. FINDINGS: No acute fracture identified. ??No dislocation. ??Joint spaces are unremarkable. ??No destructive bone lesion. Procedure Note Gaurav Maya MD - 06/27/[address] [address] EXAMINATION: XR SHOULDER LT 3V HISTORY: Pain after injury DATE: 06/27/2024 6:12 PM COMPARISON: None TECHNIQUE: AP, Grashey and scapular Y views of the left shoulder. 3images. FINDINGS: No acute fracture identified. No dislocation. Joint spaces areunremarkable. No destructive bone lesion. IMPRESSION: No acute findings. Referred By: Interpreted By: Gaurav Maya MD, 06/27/2024 7:00 PM Michelle Jay JAVA SCALA DEVELOPER GENERAL IMAGING Final Resul t * (ABNORMAL) COMPREHENSIVE METABOLIC PANEL (06/27/2024 6:02 PM EMPLOYMENT SPECIALIST) Only the most recent of2 resultswithin the time period is included. GLUCOSE 105(H) 70 - 99 MG/DL 06/27/2024 6:[address] [facility] BUN 8 7 - 18 MG/DL 06/27/2024 6:[address] [facility] CREATININE S/P/B 0.86 0.55 - 1.02 MG/DL 06/27/2024 6:[address] [facility] SODIUM S/P/B 136 136 - 145 MMOL/L 06/27/2024 6:[address] [facility] POTASSIUM S/P/B 4.0 3.5 - 5.1 MMOL/L 06/27/2024 6:[address] [facility] Comment:SLIGHT HEMOLYSIS, RE SULT MAY BE AFFECTED. CHLORIDE S/P/B 106 97 - 115 MMOL/L 06/27/2024 6:[address] [facility] CO2 25.1 21 - 32 MMOL/L 06/27/2024 6:[address] [facility] CALCIUM S/P/B 9.3 8.5 - 10.1 MG/DL 06/27/2024 6:[address] [facility] BILIRUBIN TOTAL S/P/B 0.5 0.2 - 1.2 MG/DL 06/27/2024 6:[address] [facility] Comment: THIS ASSAY IS NOT RECOMMENDED FOR PATIENTS UNDERGOING TREATMENT WITH ELTROMBOPAG DUE TO THE POTENTIAL FOR FALSELY ELEVATED RESULTS. TOTAL PROTEIN S/P/B 8.0 6.4 - 8.2 G/DL 06/27/2024 6:[address] [facility] ALBUMIN S/P/B 3.5 3.4 - 5.0 G/DL 06/27/2024 6:[address] [facility] AST 21 15 - 37 U/L 06/27/2024 6:[address] [facility] Comment:SLIGHT HEMOLYSIS, RE SULT MAY BE AFFECTED. ALT 23 14 - 55 U/L 06/27/2024 6:[address] [facility] ALKALINE PHOSPHATASE S/P/B 133 50 - 136 U/L 06/27/2024 6:[address] [facility] ANION GAP 4.9 2 - 10 MMOL/L 06/27/2024 6:[address] [facility] BUN CREATININE RATIO 9.2 6 - 26 06/27/2024 6:[address] [facility] A/G RATIO 0.8(L) 1.0 - 2.0 RATIO 06/27/2024 6:[address] [facility] GFR ESTIMATE 81(L) >90 ML/MIN/1.7 3 M2 06/27/2024 6:[address] [facility] Comment: NOTE: eGFR is not calculated for patients <18 years of age or gender unknown. This is an estimated GFR calculation using the new CKD EPI creatinine equation without race and so does not require a correction factor for race. This estimated GFR should not be used for calculating drug doses. 06/27/2024 6:02 PM EMPLOYMENT SPECIALIST Michelle Jay JAVA SCALA DEVELOPER LABORATORY Final Resul t [facility] [address] [place] [address], [place] [phone] * (ABNORMAL) CBC W/DIFF AUTOMATED (06/27/2024 6:02 PM EMPLOYMENT SPECIALIST) Only the most recent of2 resultswithin the time period is included. WBC 7.85 4.5 - 11.0 x10'3/uL 06/27/2024 6:37 PM EMPLOYMENT SPECIALIST [facility] RBC 4.84 4.20 - 5.40 x10'6/uL 06/27/2024 6:[address] [facility] HGB 14.4 12.0 - 16.0 G/DL 06/27/2024 6:[address] [facility] HCT 43.3 38.0 - 48.0 % 06/27/2024 6:[address] [facility] MCV 89.5 81.0 - 99.0 FL 06/27/2024 6:37 PM EMPLOYMENT SPECIALIST [facility] MCH 29.8 27.0 - 31.0 PG 06/27/2024 6:37 PM EMPLOYMENT SPECIALIST [facility] MCHC 33.3 32.0 - 36.0 G/DL 06/27/2024 6:[address] [facility] RDW 14.6(H) 11.5 - 14.5 % 06/27/2024 6:[address] [facility] PLT 208 130 - 400 x10'3/uL 06/27/2024 6:37 PM EMPLOYMENT SPECIALIST [facility] MPV 11.7 9.3 - 12.2 FL 06/27/2024 6:37 PM EMPLOYMENT SPECIALIST [facility] DIFFERENTIAL TYPE MANUAL DIFFERENTIAL 06/27/2024 6:38 PM EMPLOYMENT SPECIALIST [facility] SEG NEUTROPHILS 65 % 6:38 PM EMPLOYMENT SPECIALIST [facility] LYMPHOCYTES 22 % 06/27/2024 6:38 PM EMPLOYMENT SPECIALIST [facility] MONOCYTES 10 % 06/27/2024 6:38 PM EMPLOYMENT SPECIALIST [facility] EOSINOPHILS 3 % 06/27/2024 6:38 PM EMPLOYMENT SPECIALIST [facility] ABS. NEUTROPHILS 5.10 1.80 - 7.70 x10'3/uL 06/27/2024 6:38 PM EMPLOYMENT SPECIALIST [facility] ABS. LYMPHOCYTES 1.73 1.00 - 4.80 x10'3/uL 06/27/2024 6:38 PM EMPLOYMENT SPECIALIST [facility] ABS. MONOCYTES 0.79 0.24 - 0.86 x10'3/uL 06/27/2024 6:38 PM EMPLOYMENT SPECIALIST [facility] ABS. EOSINOPHILS 0.24 0.04 - 0.36 x10'3/uL 06/27/2024 6:[address] [facility] RBC MORPHOLOGY RBC MORPHOLOGY APPEARS NORMAL. SLIDE REVIEWED. 06/27/2024 6:38 PM EMPLOYMENT SPECIALIST [facility] PLT EST. ADEQUATE 06/27/2024 6:[address] [facility] 06/27/2024 6:02 PM EMPLOYMENT SPECIALIST us Michelle Jay JAVA SCALA DEVELOPER LABORATORY Final Resul t [facility] [address] [place] [address], * TROPONIN, QUANT (06/27/2024 6:02 PM EMPLOYMENT SPECIALIST) Only the most recent of2 resultswithin the time period is included. TROPONIN I HIGH SENSITIVITY 4 <54 ng/L 06/27/2024 6:46 PM EMPLOYMENT SPECIALIST [facility] Comment: HIGH DOSES OF BIOTIN, TROPONIN-SPECIFIC AUTOANTIBODIES, AND ANTIBODY THERAPY CONTAINING HAMA MAY INTERFERE WITH THIS TEST RESULT. CORRELATION TO CLINICAL HISTORY AND PRESENTATION RECOMMENDED. 06/27/2024 6:02 PM EMPLOYMENT SPECIALIST Michelle Jay JAVA SCALA DEVELOPER LABORATORY Final Resul t [address] [address], * ECG 12 lead (06/27/2024 5:56 PM EMPLOYMENT SPECIALIST) Only the most recent of2 resultswithin the time period is included. 06/27/2024 5:56 PM EMPLOYMENT SPECIALIST Narrative [facility] - 06/27/2024 11:29 PM EMPLOYMENT SPECIALIST ?[place]`tricia Spencer ? [address] [facility] ? Test Date: ?2024-06-27 Pat Name: ? CASS TORRES ? Department: ?? 41 ? Room: ? INPR Gender: ? Female ? Deal Architect: ?? Em : ?1970 ? Requested By: MICHELLE JAY Order Number: [id number] ? Reading MD: ?? Jose Luis Hernández ? Measurements Intervals ?[place] ? Rate: ? 61 ? P: ?35 MS: ? 159 ?QRS: ?39 QRSD: ? 98 [...] STEMI Preliminary EKG Interpretation by BRIDGETT Stoddard OYMENT SPECIALIST Procedure Note Jose Luis Hernández MD - 06/27/[address] Test Date: 2024-06-27 Pat Name: CASS TORRES Department: 41 Room: INMS Gender: Female Deal Architect: Alejandrina : 1970 Requested By: MICHELLE JAY Order Number: [id number] Reading MD: Jose Luis Hernández Measurements Intervals [place] Rate: 61 P: 35 MS: 159 QRS: 39 QRSD: 98 T: 31 QT: 392 QTc: 396 Interpretive Statements SINUS RHYTHM POSSIBLE LEFT ATRIAL ENLARGEMENT [-0.1mV P WAVE IN V1/V2] MINIMAL ST DEPRESSION [0.025+ mV ST DEPRESSION] Compared to ECG 05/07/2024 17:01:26 ST (T wave) deviation now present Sinus bradycardia no longer present Other ischemic changes, not STEMI Preliminary EKG Interpretation by BRIDGETT Stoddard OYMENT SPECIALIST us Michelle URIAS ECG ORDERABLES Final Resul t [facility] * (ABNORMAL) URINALYSIS (05/07/2024 5:43 PM EMPLOYMENT SPECIALIST) SPECIMEN TYPE URINE CLEAN CATCH 05/07/2024 5:48 PM EMPLOYMENT SPECIALIST [facility] COLOR (U) YELLOW 05/07/2024 6:17 PM EMPLOYMENT SPECIALIST [facility] TRANSPARENCY CLEAR 05/07/2024 6:17 PM EMPLOYMENT SPECIALIST [facility] SPECIFIC GRAVITY (U) 1.027 1.001 - 1.030 05/07/2024 6:17 PM EMPLOYMENT SPECIALIST [facility] U PH 5.5 5.0 - 9.0 05/07/2024 6:17 PM EMPLOYMENT SPECIALIST [facility] LEUKOCYTES (U) NEGATIVE NEGATIVE 05/07/2024 6:17 PM EMPLOYMENT SPECIALIST [facility] NITRITES NEGATIVE NEGATIVE 05/07/2024 6:[address] [facility] PROTEIN RANDOM (U) 10 <30 MG/DL 05/07/2024 6:17 PM EMPLOYMENT SPECIALIST [facility] GLUCOSE (U) NORMAL NORMAL MG/DL 05/07/2024 6:[address] [facility] KETONES MG/DL (U) NEGATIVE NEGATIVE MG/DL 05/07/2024 6:[address] [facility] UROBILINOGEN 2.0(A) NORMAL MG/DL 05/07/2024 6:[address] [facility] BILIRUBIN (U) NEGATIVE NEGATIVE MG/DL 05/07/2024 6:[address] [facility] BLOOD (U) NEGATIVE NEGATIVE 05/07/2024 6:[address] [facility] URINE SPECIMEN OBTAINED BY CLEAN CATCH PROCEDURE / Unknown 05/07/2024 5:43 PM EMPLOYMENT SPECIALIST us Olivia VILLEGAS URINE ORDERABLES Final Result [facility] [address] [place] [address], * (ABNORMAL) D-DIMER, QUANTITATIVE (05/07/2024 5:43 PM EMPLOYMENT SPECIALIST) D-DIMER 519(HH) 0 - 500 ng{FEU}/mL 05/07/2024 6:33 PM EMPLOYMENT SPECIALIST [facility] Comment: D-Dimer values less than or [...] called 05/07/2024 06:35 PM to EMERGENCY ROOM (Catalino/MARÍA BONILLA) by [id number]. 05/07/2024 5:43 PM EMPLOYMENT SPECIALIST Olivia VILLEGAS [facility] Final Result Performing Organization Address City/[facility]/ZIP Co de Phone Number [facility] [address] [place] [address], [place] [phone] * LIPASE (05/07/2024 5:43 PM EMPLOYMENT SPECIALIST) LIPASE 20 13 - 75 UNITS/L 05/07/2024 6:17 PM EMPLOYMENT SPECIALIST [facility] 05/07/2024 5:43 PM EMPLOYMENT SPECIALIST Olivia VILLEGAS [facility] Final Result Performing Organization Address City/[facility]/ZIP Co de Phone Number [facility] [address] [place] [address], [place] [phone] * XR CHEST PORTABLE (05/07/2024 5:21 PM EMPLOYMENT SPECIALIST) Anatomical Region Laterality Modality Chest Radiographic Inez ging 05/07/2024 5:57 PM EMPLOYMENT SPECIALIST Impressions 05/07/2024 5:59 PM EMPLOYMENT SPECIALIST IMPRESSION: No radiographic evidence of active chest disease. Ordered By: OLIVIA CRUZ Interpreted By: Jason Arango MD, 05/07/2024 5:57 PM Narrative 05/07/2024 5:59 PM EMPLOYMENT SPECIALIST [facility] [address] [place], [place] [address] Examination: XR CHEST PORTABLE Exam time: 05/07/2024 5:00 PM Indication: Chest pain Comparison: 12/16/2023 and 09/16/2023 Technique: Portable AP view the chest, one image. Findings: Mediastinal silhouette and pulmonary vasculature are within normal limits for technique. No pneumothorax, large pleural effusion, or focal consolidation. No acute osseous abnormality. Procedure Note Jason Arango MD - 05/07/[address] [address] Examination: XR CHEST PORTABLE Exam time: 05/07/2024 [...] Jason Arango MD, 05/07/2024 5:57 PM us lOivia VILLEGAS GENERAL IMAGING Final Result * CLINIC - OUTPATIENT EVENT RECORDER (ECG) UP TO 30 DAYS COMPLETE (Holter) (04/25/2024 7:47 AM EMPLOYMENT SPECIALIST) Impressions [facility] - 04/25/2024 7:47 AM EMPLOYMENT SPECIALIST [facility] [address] [place], [place] ??[address] MOBILE CARDIAC HOME COMPANION REPORT Patient Name: Cass Torres : 1970 Pivot Maker Date: 04/09/2024 End Date: 04/15/2024 Performed At: ??[facility], [place], [place] Interpreting Collection Correspondent: ?? Koffi Shaw MD PCP: Susana Parikh MD Ordering Provider: Jaciel Palmer MD INDICATION: Palpitations DURATION OF MONITORIN days NUMBER OF TRANSMISSIONS: 4 (3auto transmissions, 1 manual, 0 periodic) INTERPRETATION: A 7-day mobile cardiac community organization director analyzed. Interpretable data was 0 days, 8 [...] ??There were no significant arrhythmias observed. Interpreting Collection Correspondent: ?? Dr. Koffi Shaw us Jaciel Palmer MD CV VASCULAR ORDERABLES Katrina l Result [facility] * USE ECHOCARDIOGRAM (04/06/2024 9:14 AM CDT) Anatomical Region Laterality Modality Cardiac Echocardiogram 04/06/2024 8:42 AM CDT Narrative 04/06/2024 11:41 AM CDT ?Echocardiography Report Pat.Name: ??CASS TORRES ? Pat.ID: ?[id number] ? St.Date: ?? 04/06/2024 ? Refer.MD: ??[id number], JACIEL PALMER Exam Time: 8:42:00 AM ? Study Type:ECHO WITH CARDIAC DOPPLER COMP Height: ?67 in ? Weight: ?221 lb ? BSA: ? 2.11 m2 ?Age: ??1970,53Y ? Sex: ? F ? BP: ?155/84 ? Sonogrphr: Ann Segura RDMS ?? Pat. Stat.:Outpatient ? CPT - 4: ?27257 ? Reason for Study:Chest pain ? Procedures: [...] ? Right and Left ??0.612 ? Major [place] ?78 mm ? Ventricular Septum ?? IVSd [...] 04/06/2024 Echocardiography Report Pat.Name: CASS TORRES Pat.ID: [id number] .Date: 04/06/2024 Refer.MD: [id number], JACIEL PALMER Exam Time: 8:42:00 AM Study Type:ECHO WITH CARDIAC DOPPLER COMP Height: 67 in Weight: 221 lb BSA: 2.11 m2 Age: 6 1970,53Y Sex: F BP: 155/84 Sonogrphr: Ann Segura [facility] Pat. Stat.:Outpatient CPT - 4: 55252 Reason for Study:Chest pain Procedures: 2D, M-mode, [...] 32 mm Right and Left 0.612 Major [place] 78 mm Ventricular Septum IVSd 1.3 cm [...] CHOLESTEROL 107 <200 MG/DL 04/06/2023 12:58 PM CDT [facility] TRIGLYCERIDES 94 <150 MG/DL 04/06/2023 12:58 PM CDT [facility] HDL 24(L) >40.0 MG/DL 04/06/2023 12:58 PM CDT [facility] LDL (CALCULATED) 64 <100 MG/DL 04/06/20 12:58 PM CDT [facility] NON HDL CHOLESTEROL 83 <130 MG/DL 04/06 12:58 PM CDT [facility] CHOL/HDL RATIO 4.5 0.0 - 4.5 04/06/2023 12:58 PM CDT [facility] VLDL CALCULATION 19 5 - 55 MG/DL 04/06/2023 12:58 PM T [facility] LIPID INTERPRETATION 04/06/2023 12:58 PM CDT [facility] Comment: [facility] CONCENSUS REPORT RECOMMENDATIONS: ?ADULT [...] >=160 ?>=130 04/06/2023 12:0 6 PM CDT Angelica Santana JAVA SCALA DEVELOPER LABORATORY Final Result Performing Organization Address City/State/[facility] Co de Phone Number [facility] [address] [place] [address], from Last 3 Months or Most Recently Relevant to Health Maintenance Advance Directives * Full Code (Latest Code Status on File) Date Activated Date Inactivated Comments 06/10/2023 1:20 AM 06/13/2023 3:36 PM * Full Code Date Activated Date Inactivated Comments 02/21/2020 11:49 PM 02/22/2020 3:05 PM Care Teams Assistant Professor In Family Studies Relationship Specialty Start Date End Date None, Provider, MD PCP - General UNKNOWN PHYSICIAN SPECIALTY 12/16/23
--- OUTSIDE RECORDS SUMMARY | 2024-07-05 01:41 | XMS_ITS | Encounter Summary ---
Author Organization [facility] Address [address] [place] [address] Phone Care Team Providers Care Curriculum Facilitator Name Role Phone MakennaAditya Primary Care Provider [phone] Brian Rangel DO Unavailable [phone] Chris Doll DO Unavailable [phone] Encounter Details Date Type Department Care Team (Late st Contact Info) Description 11/04/2020 Telephone [facility] [address] [place] [address] Brian Rangel, DO [address] [place] [address] Social History Tobacco Use Types [...] documented as of this encounter Care Teams Curriculum Facilitator Relationship Specialty Start Date End Date Aditya Mensah, PARMJIT [address] [place] [address] PCP - General Physician Apparel Machinery Instructor 04/26/18 Brian Rangel DO [address] [place] [phone] Consulting Physician Oncology 08/14/20 Chris Doll DO [facility] [address] [address] Obstetrics & Gynecology 08/14/20 documented as of this encounter
--- OUTSIDE RECORDS SUMMARY | 2024-07-05 01:41 | XMS_ITS | Clinical Summary ---
Author Organization [facility] Address [address] [place] [address] Phone Care Team Providers Care Hearing And Speech Assistant Name Role Phone Aditya Mensah Susu PARNELL Primary Care Provider [phone] Brian Rangel DO Unavailable [phone] Chris Doll DO Unavailable [phone] Allergies Active Allergy Reactions Criticality Noted [...] MASTERSON MEDICAID [employer] Care Teams Hearing And Speech Assistant Relationship Specialty Start Date End Date Aditya Mensah PAC [address] [place] [id number] PCP - General Physician Oncology Navigator 04/26/18 Brian Rangel DO [address] [place] [id number] Consulting Physician Oncology 08/14/20 Chris Doll DO [address] [place] [id number] Obstetrics & Gynecology 08/14/20
--- OUTSIDE RECORDS SUMMARY | 2024-07-05 01:41 | XMS_ITS | Patient Health Summary ---
Author Organization [facility] Address [address] [place] [address] Care Team Providers Care National Expansion Recruiter Name Role Phone Unavailable Primary Care Provider Unavailabl e Note from [facility],non-owned Affiliates and Associated Physician Practices is amultiple site organization consisting of ambulatory clinics and hospital sitesin [place], [place], [place] and [place]. This disclosure is being madepursuant to the Care Everywhere program and may not contain all information available regarding this patient. Last updated 18.[facility] Social History Tobacco Use Types Packs/Day Years [...] [facility] Breast Care utilizes [employer] as a reminder system to notify patients [...] your patient. [facility] Breast [facility] utilizes [employer] as a reminder system to notify patients [...] [facility] utilizes [employer] as a reminder system to notify patients of their next recommended mammogram. I, Rhonda Webster, have personally reviewed the images and I agree with this report. Ginette Bro MD MAMMO ORDERABLES
--- OUTSIDE RECORDS SUMMARY | 2024-07-05 01:42 | XMS_ITS | Clinical Summary ---
Author Organization [facility] Address [address] [facility] [place] [address] Care Team Providers Care Project Control Officer Name Role Phone Unavailable Primary Care Provider Unavailabl e Source Comments [facility],non-owned Affiliates and Associated Physician Practices is amultiple site organization consisting of ambulatory clinics and hospital sitesin [place], [place], [place] and [place]. This disclosure is being madepursuant to the Care Everywhere program and may not contain all information available regarding this patient. Last updated 18.[facility] Family History Medical History Relation Name Comments [...] participate in the care of your patient. [facility] utilizes [employer] as a reminder system to notify patients of their next recommended mammogram. I, Rhonda Webster, have personally reviewed the images and I agree with this report. Ginette Bro MD MAMMO ORDERABLES from Last 3 Months or Most Recently Relevant to Health Maintenance
--- OUTSIDE RECORDS SUMMARY | 2024-07-05 01:42 | XMS_ITS | Clinical Summary ---
Author Organization [facility] Address [address] [place] [address] Care Team Providers Care Machine Hostler Name Role Phone Danyelle Cristobal MD Unavailable [phone] Antonio Moon DO Unavailable [phone] Aditya Mensah Primary Care Provider [phone] Mike Arias MD Unavailable [phone] Miscellaneous, Not In File Unavailable Unava ilable [...] w/ path IVON III. Path reviewed at [facility] and in agreement. -12/26/20: Coalescent papules with [...] 01/24/2020 Assessment & Plan (08/05/2021 10:27 AM COMMERCIAL LOAN COLLECTION OFFICER): Left adrenal adenoma detected in early 2017 the adenoma showed up on MRI on 04/18/19- 3.0 cm Stable in size on CT scan on 10/11/19 and 08/22/20 ??patient had normal electrolytes on 02/23/21 [place]'s was rules out with 1 mg Dexamethasone suppression test on 02/02/20 Serum metanephrines were also normal Normal Aldosterone and PRA on 08/23/20 Plan: ?? The diagnosis reviewed with patient Check 1 mg dexamethasone suppression test If condition stable then will be checked again in one year. Assessment & Plan (08/04/2020 10:23 AM COMMERCIAL LOAN COLLECTION OFFICER): Left adrenal adenoma detected in early 2017 [...] (12/26/2020): Added automatically from request for surgery [id number] Assessment & Plan (12/05/2019 10:38 AM CDT): Colonoscopy showed diverticulosis, one adenoma polyp, and internal hemorrhoids. There was no evidence of active diverticulitis. Pt says she continues to get this RLQ pain that starts with her menstrual period and stops once her cycle is over. No GI source of pain. Pt advised to see obgyn specialist as this is likely obgyn specialist origin given it only occurs during menstruation. [...] for about 14 years. Likely related to obgyn specialist issue but will do colonoscopy to rule out GI issues. Pt encouraged to make obgyn specialist appt. She says she has an appointment in January. Acute diverticulitis 10/22/2019 Overview (10/22/2019): Added automatically from request for surgery [id number] Assessment & Plan (10/22/2019 11:08 AM CDT): [...] nutrition consultation Coronary artery disease invo lving coquille coronary artery of coquille heart without angina pectoris 09/26/2019 Assessment & [...] atenolol Assessment & Plan (08/05/2021 10:26 AM COMMERCIAL LOAN COLLECTION OFFICER): Controlled with medication Complicated with CAD- had stent placed. ?? Plan: ?? Continue same medication and follow up with PCP and cardiology Assessment & Plan (08/04/2020 10:24 AM COMMERCIAL LOAN COLLECTION OFFICER): Controlled with medication Complicated with CAD- had [...] How often do you attend chur or restorationist services? Never 05/24/2022 Do you belong to any clubs o r organizations such as amish groups, unions, fraternal or athletic groups, or [...] place to sleep or slept in a jail (including now)? No 05/24/2022 Personal Safety Answer [...] on file Legal Sex Female 12:30 AM COMMERCIAL LOAN COLLECTION OFFICER Gender Identity Female 01/17/2020 4:14 PM CDT [...] Completed 08/15/2017 Medical Devices Implanted Type Area Bioinformatics Assistant Device Identifier Shelf Expiration Date Model / Serial / Lot [employer] [id number] Synergy 2.5mm 12mm 144cm Radiopaque 1 Access Port Inflation Lumen - [id number] Implanted:Qty: 1 on 09/07/2018 by Sulaiman Lynch MD at [facility] Stent [employer] 11/23/2019 [id number] 250 / / [id number] [employer] [id number] System Coronary Stent Xience Isabel Everolimus L8 Mm Od3.5 Mm Rapid Exchange - [id number] Implanted:Qty: 1 on 09/07/2018 by Sulaiman Lynch MD at [facility] Stent [employer] 04/09/2019 [id number] / / [id number] [employer] [id number] Synergy 2.25mm 12mm 144cm Radiopaque 1 Access Port Inflation - [id number] Implanted:Qty: 1 on 09/07/2018 by Sulaiman Lynch MD at [facility] Stent [employer] Mino 04/17/2020 [id number] 220 / / [id number] Procedures Procedure Name Priority Date/Time Associated Diagnosis [...] results best viewed via link to PDF [facility] [place] [address] CYTOPATHOLOGY REPORT FINAL Patient Name: ??CASS TORRES Gender: ??F : ??1970 (Age: 49) Address: ??[address] [place], [place] ??[address] Hospital #: ??[id number] Service: ??Oncology Location: ??[facility] Patient Type: ??[facility] Ancillary Taken: ??09/19/2020 Received: ??09/19/2020 Accessioned: ??09/22/2020 [...] ??These HPV tests were performed at [facility] in [place], [place] utilizing the Gen-Probe Aptima assay. This specimen has been rescreened in accordance with this laboratory's Aircraft Navigator Program. 10/03/2020 09:02 TAY [place], [place](ASCP)[facility] Report Electronically Reviewed and Signed Out By [...] The HPV test was performed by [facility], [address] [place] [address]. Report Images and scanned documents, if included only viewable in PDF version The performance characteristics of some immunohistochemical stains, in-situ hybridization and fluorescence in-situ hybridization tests and immunophenotyping by flow cytometry cited in this report (if any) were determined by the Surgical Pathology Department at [facility] as part of an ongoing quality assurance practice manager program and in compliance with federally [...] determined by the Surgical Pathology Department of [facility]. ??It has not been cleared or approved by the U. S. Food and Drug Administration. us Notinfile Unknown LAB CYTOLOGY ORDERABLES Final Result * COLONOSCOPY (11/28/2019 9:16 AM CDT) Anatomical Region Laterality Modality Other Narrative Procedure Note Danyelle Cristobal MD - 11/28/2019 9:16 AM CDT [facility] Patient Name: Cass Torres Procedure Date: 11/28/2019 9:16 AM Date of : 1970 Admit Type: Outpatient Age: 48 Gender: Female Attending MD: Danyelle Cristobal M.D. Room: [facility] END[facility] ROOM 1 Note Status: Finalized [...] passed under direct vision.The Pediatric Colonoscope [id number] was introduced through the anus and advanced [...] 9:16 AM Procedure Code(s): --- Professional --- 40764, Colonoscopy, flexible; with removal of tumor(s), polyp(s), or other lesion(s) by snare technique Diagnosis Code(s): --- Professional --- K64.8, Other hemorrhoids D12.5, Benign neoplasm of sigmoid colon R10.31, Right lower quadrant pain K57.30, Diverticulosis of large intestine without perforation orabscess without bleeding CPT copyright 2017 [employer]. All rights reserved. The codes documented in this report are preliminary and upon power equipment technology instructor reviewmay be revised to meet current compliance requirements. Recognized by the [place] [employer] for promoting quality in endoscopy Danyelle Cristobal MD ENDOSCOPY PROCEDURES Final Result * Screening Mammogram Bilateral W Gee (09/12/2017 11:29 AM CDT) Anatomical Region Laterality Modality Breast Bilateral Mammography Addenda Addendum by Thom Castillo MD on 09/19/2017 3:24 PM CDT ADDENDUM #1 Comparison to previous mammogram at [facility] in [facility] on 02/12/2016 shows a similar pattern [...] tomosynthesis. COMPARISON: None available. ??Previous mammogram at [facility] in [place], [place]; not brought today for comparison. FINDINGS: [...] tomosynthesis. COMPARISON: None available. ??Previous mammogram at [facility] in [place], [place]; not brought today for comparison. FINDINGS: [...] [facility] Comment:Testing performed by : [facility], [address] [place] [address]., [id number] Hep B core IgM Negative Negative [facility] Comment:Testing performed by : [facility], [address] [place] [address]., [id number] Hep C Ab Negative Negative [facility] Comment:Testing performed by : [facility], [address] [place] [address], [id number] HepBsAg Negative Negative [facility] Comment:Testing performed by : [facility], [address] [place] [address], [id number] Blood specimen (specimen) 08/15/2017 12:57 PM CDT 08/15/2017 7:02 PM CDT Narrative [facility] - 08/15/2017 8:46 PM CDT Kellie Maguire MD LAB MICROBIOLOGY - GENERAL OR DERABLES Final Result [facility] [address] [facility] [place] [address] from Last 3 Months or Most Recently Relevant to Health Maintenance Insurance [facility] Advance Directives For more information, please contact: [phone] * Full Code (Latest Code Status on [...] 8:33 AM 11/28/2019 8:33 AM Care Teams Machine Hostler Relationship Specialty Start Date End Date Aditya Mensah PA [address] [place] [address] PCP - General Family Practice 05/23/22 Danyelle Cristobal MD Consulting Physician Gastroenterology 08/16/17 Antonio Moon DO [address] [place] [address] DR ROBB [address] [place] [address] Cardiovascular Disease 09/07/18 Mike Arias MD [address] [place] [address] Resident Family Medicine 05/25/22 Miscellaneous, Not In File 08/26/22
--- OUTSIDE RECORDS SUMMARY | 2024-07-05 01:42 | XMS_ITS | Referral Summary ---
Author Organization [facility] Address [address] [facility] [place] [address] Care Team Providers Care Client Care Representative Name Role Phone Unavailable Primary Care Provider Unavailabl e Source Comments [facility],non-owned Affiliates and Associated Physician Practices is amultiple site organization consisting of ambulatory clinics and hospital sitesin [place], [place], [place] and [place]. This disclosure is being madepursuant to the Care Everywhere program and may not contain all information available regarding this patient. Last updated 18.[facility] Social History Tobacco Use Types Packs/Day Years [...] participate in the care of your patient. [facility] utilizes [employer] as a reminder system to notify patients of their next recommended mammogram. I, Rhonda Webster, have personally reviewed the images and I agree with this report. Ginette Bro MD MAMMO ORDERABLES from Last 3 Months or Most Recently Relevant to Health Maintenance
--- OUTSIDE RECORDS SUMMARY | 2024-07-05 01:42 | XMS_ITS | Data Portability ---
Author Organization [facility] Address [address] [facility] / [place] [address] Care Team Providers Care Radio Repairer Name Role Phone LEON MENSAH Primary Care Provider Assessment No assessment recorded. Plan of Treatment Reminders Order Date Submit Date Provider Last Modified By Organization Details Last Modified Time Details Appointments None record ed. Lab cultur e, urine 2021 022 [facility], [address] [place] [address], [address], [place], [address], 3 17:07:47 lipid panel, serum 2022 023 [facility], [address] [place] [address], [facility] [place], [address], 3 20:08:55 CBC w/ auto diff 2022 023 [facility], [address] [place] [address] 2, [place], [address], 3 20:08:56 HbA1c (hemog lobin A1c), blood 2022 023 [facility], [address] [facility], [facility] [place] [address], [place], [address], 3 06:18:05 TSH, ultra- sensit saroj, serum 2022 023 [facility], [address] [place] [address], [facility] [place] [address], [place], [address], 3 06:18:05 BNP (B-typ e natriu retic peptid e), serum or plasma 2022 023 [facility], [address] [facility] [address], [place], [address], 3 11:11:33 D-dime r, quant, plasma 2022 023 [facility], [facility], [facility] [place] [address], [place], [address], 3 11:11:33 CMP, serum or plasma 2022 023 [facility], [address] [place] [address], [facility] [place] 2, [place], [address], 3 20:08:55 HbA1c (hemog lobin A1c), blood 2022 023 [facility], [address] [place] [address], [facility] [place] [address], [place], [address], 3 10:46:17 CBC w/ auto diff 2022 023 [facility], [address] [place] [address], [facility] [place] [address], [place], [address], 3 19:08:30 iron + total iron-b inding capaci ty (TIBC) , serum 2022 023 [facility], [address] [place] [address], [facility] [place] [address], [place], [address], 3 10:46:17 ferrit in, serum or plasma 2022 023 [facility], [address] [place] [address], [facility] [place] [address], [place], [address], 3 10:46:18 vitami n B12 + folate , serum or blood - add on 2022 023 [facility], [address] [facility], [facility] [place] [facility], [place], [address], 3 20:06:47 Referral regist radha quiroz referr al - elevat ed BMI and DM. 2022 024 [facility] [address], [facility] , [facility], [place], [address], 4 12:31:24 Procedures None record ed. Surgeries None record ed. Imaging US, echoca rdiogr am, transt hordante c, comple te 2022 023 [facility], [address] [place] [address] , [place], [address], 3 16:01:09 Medication Orders benzoc franci 15 mg lozeng es 2021 022 Not available 3 10:44:27 meloxi cam 15 mg tablet 2021 022 [facility] Not available 2 17:06:34 nicoti ne 21 mg/24 hr daily transd ermal patch 2022 023 [email or web address] Not available 3 16:40:25 benzoc franci 15 mg lozeng es 2022 023 [email or web address] Not available 3 10:44:27 Peride x 0.12 % mouthw yo 2022 023 [email or web address] Not available 3 09:50:16 Lidoca ine Viscou s 2 % mucosa l soluti on 2022 023 [email or web address] Not available 3 09:50:16 amoxic illin 875 mg-pot assium clavul anate 125 mg tablet 2022 023 [facility], [address] [facility], [place], [address], 3 10:08:38 cefdin ir 300 mg capsul e 2022 023 [facility], [address] [place] [address], [address], 3 10:43:07 metron idazol e 500 mg tablet 2022 023 [facility], [address] [place] [address], [address], 4 15:45:50 hydrox yzine HCl 25 mg tablet [address] [facility] [address] [facility], [address] [place] [address], [address], 3 10:45:32 Peride x 0.12 % mouthw yo 2022 023 [facility], [address] [place] [address], [address], 3 10:53:30 lidoca ine HCl 2 % mucosa l soluti on 2022 023 [facility], [address] [place] [address], [address], 3 10:53:31 Mirala x 17 gram oral powder packet 2023 024 [facility], [address] [place] [address], [address], 4 17:24:54 Dulcol ax Stool Soften er (docus ate) 100 mg capsul e 2023 024 [facility], [address] [place] [address], [address], 4 17:24:53 Patient TargetsNo targets recorded. Patient Instructions Encounter Date Encounter Id Patient Instructions Last Modified By Organization Details Last Modified Time 06/03/2022 [id number] Quitting Tobacco : Care Instructions [email or web address] Not available 06/07/2022 11:04:39 Attending Physician Addendum I did not personally see or examine the patient with the resident. I was physically present to provide indirect supervision through entire encounter. I have reviewed the documentation and agree with the history, physical findings, work-up, and medical decision making as recorded. Xochilt Jo MD [email or web address] Not available 06/09/2022 12:34:38 02/11/2023 [id number] A healthy lifestyle: care instructions [email or web address] Not [...] MD [email or web address] Not available 02/11/2023 09:55:22 04/14/2023 [id number] Attending Physician Attestation I did not personally see or examine the patient with the resident. I was physically present to provide indirect supervision through entire encounter. I have reviewed the documentation and agree with the history, physical findings, work-up, and medical decision making as recorded. Xochilt Jo MD mmetias Not available 04/14/2023 12:01:56 05/13/2023 [id number] A healthy lifestyle: care instructions [email or web address] Not available 05/13/2023 10:53:24 I discussed the patient? s presentation, findings, assessment and plan with the resident during or immediately after the time of service. I agree with the resident? s findings, assessment, and plan as documented in the note above. James Milton MD. [facility] [email or web address] Not available 05/13/2023 11:31:08 06/14/2023 [id number] Attending Physician Addendum I did not personally see or examine the patient with the resident. I was physically present to provide indirect supervision through entire encounter. I have reviewed the documentation and agree with the history, physical findings, work-up, and medical decision making as recorded. Alicia Cruz MD [email or web address] Not available 07/09/2023 10:06:49 Reason for Referral Registered Dietitian Phillip lorenzo for High glucose level in blood elevated BMI and DM. Referring Physician: Mike Arias, Well Logger, Encounter Date: 04/14/2023 Results Created Date Observation Date Name Description Value Unit Range Abnormal Flag Note LastModifiedBy Organization Detail LastModifiedTime 06/03/20 22 06/06/2022 URINE CULTU RE, ROUTI NE urine culture, routine Final report Not Available [facility] ([facility]) [address] [facility], [place], [address], 06/06/2022 17:07:46 06/03/20 22 06/06/2022 URINE CULTU RE, ROUTI NE result 1 Commen t Great er than 2 organ isms recov ered, none predo minan t. Pleas e submi t anoth er sampl e if clini liz indic ated. 50,00 0-100 ,000 colon y formi ng units per mL Not Available [facility] ([facility]) [address] [facility], [place], [address], 06/06/2022 17:07:46 02/12/20 23 02/11/2023 LIPID PANEL cholesterol, total 132 mg/dL 100-19 9 Not Available [facility] Department [address] [place], [address], 02/11/2023 20:08:55 02/12/20 23 02/11/2023 LIPID PANEL triglyceride s 101 mg/dL 0-149 Not Available [facility] Department [address] [place], [address], 02/11/2023 20:08:55 02/12/20 23 02/11/2023 LIPID PANEL HDL cholesterol 34 mg/dL 40-999 below low normal Not Available [facility] [address] [place], [address], 02/11/2023 20:08:55 02/12/20 23 02/11/2023 LIPID PANEL VLDL cholesterol sissy 20 mg/dL 5-40 Not Available [facility] Department [address] [place], [address], 02/11/2023 20:08:55 02/12/20 23 02/11/2023 LIPID PANEL LDL chol calc (nih) 91 mg/dL 0-[address] [facility] Department [address] [place], [address], 02/11/2023 20:08:55 02/12/20 23 02/11/2023 COMP. METAB OLIC PANEL (14) glucose 100 mg/dL 70-99 above high normal Not Available [facility] [address] [place], [address], 02/11/2023 20:08:55 02/12/20 23 02/11/2023 COMP. METAB OLIC PANEL (14) BUN 12 mg/dL 6-24 Not Available [facility] [address] [place], [address], 02/11/2023 20:08:55 02/12/20 23 02/11/2023 COMP. METAB OLIC PANEL (14) creatinine 0.77 mg/dL 0.76-1 .27 Not Available [facility] [address] [place], [address], 02/11/2023 20:08:55 02/12/20 23 02/11/2023 COMP. METAB OLIC PANEL (14) eGFR 93 >=60 Units for eGFR value s are mL/mi n/1.7 3 The eGFR Calcu latio n has not been valid ated for patie nts under the age of 18. If test resul ts are displ ayed for a patie nt under the age of 18, disre nick that value . Not Available [facility] [address] [place], [address], 02/11/2023 20:08:55 02/12/20 23 02/11/2023 COMP. METAB OLIC PANEL (14) BUN/creatini ne ratio 15 9-23 Not Available [facility] Department [address] [place], [address], 02/11/2023 20:08:55 02/12/20 23 02/11/2023 COMP. METAB OLIC PANEL (14) sodium 140 mmol/ L 134-14 4 Not Available [facility] [address] [place], [address], 02/11/2023 20:08:55 02/12/20 23 02/11/2023 COMP. METAB OLIC PANEL (14) potassium 4.7 mmol/ L 3.5-5. 2 Not Available [facility] [address] [place], [address], 02/11/2023 20:08:55 02/12/20 23 02/11/2023 COMP. METAB OLIC PANEL (14) chloride 104 mmol/ L 96-106 Not Available [facility] Department [address] [place] [address], [address], 02/11/2023 20:08:55 02/12/20 23 02/11/2023 COMP. METAB OLIC PANEL (14) carbon dioxide, total 24 mmol/ L 20-29 Not Available [facility] [address] [place], [address], 02/11/2023 20:08:55 02/12/20 23 02/11/2023 COMP. METAB OLIC PANEL (14) calcium 9.3 mg/dL 8.7-10 .2 Not Available [facility] Department [address] [place] [address], [address], 02/11/2023 20:08:55 02/12/20 23 02/11/2023 COMP. METAB OLIC PANEL (14) protein, total 7.3 g/dL 6.0-8. 5 Not Available [facility] Department [address] [place] [address], [address], 02/11/2023 20:08:55 02/12/20 23 02/11/2023 COMP. METAB OLIC PANEL (14) albumin 4.0 g/dL 3.8-4. 9 Not Available [facility] [address] [place], [address], 02/11/2023 20:08:55 02/12/20 23 02/11/2023 COMP. METAB OLIC PANEL (14) globulin, total 3.3 g/dL 1.5-4. 5 Not Available [facility] [address] [place], [address], 02/11/2023 20:08:55 02/12/20 23 02/11/2023 COMP. METAB OLIC PANEL (14) A/G ratio 1.0 1.2-2. 2 below low normal Not Available [facility] Department [address] [place] [address], [address], 02/11/2023 20:08:55 02/12/20 23 02/11/2023 COMP. METAB OLIC PANEL (14) bilirubin, total 0.4 mg/dL 0.0-1. 2 Not Available [facility] [address] [place], [address], 02/11/2023 20:08:55 02/12/20 23 02/11/2023 COMP. METAB OLIC PANEL (14) alkaline phosphatase 115 IU/L 44-[address] [facility] Department [address] [place], [address], 02/11/2023 20:08:55 02/12/20 23 02/11/2023 COMP. METAB OLIC PANEL (14) AST (SGOT) 12 IU/L 0-40 Not Available [facility] Department [address] [place] [address], [address], 02/11/2023 20:08:55 02/12/20 23 02/11/2023 COMP. METAB OLIC PANEL (14) ALT (SGPT) 10 IU/L 0-32 Not Available [facility] Department [address] [place] [address] [place], [address], 02/11/2023 20:08:55 02/12/20 23 02/11/2023 CBC WITH DIFFE RENTI AL/PL ATELE T WBC 9.3 x10e3 /uL 3.4-10 .8 Not Available [facility] [address] [place], [address], 02/11/2023 20:08:56 02/12/20 23 02/11/2023 CBC WITH DIFFE RENTI AL/PL ATELE T RBC 4.31 x10e6 /uL 3.77-5 .28 Not Available [facility] [address] [place], [address], 02/11/2023 20:08:56 02/12/20 23 02/11/2023 CBC WITH DIFFE RENTI AL/PL ATELE T hemoglobin 10.9 g/dL 11.1-1 5.9 below low normal Not Available [facility] [address] [place], [address], 02/11/2023 20:08:56 02/12/20 23 02/11/2023 CBC WITH DIFFE RENTI AL/PL ATELE T hematocrit 36.8 % 34.0-4 6.6 Not Available [facility] [address] [place], [address], 02/11/2023 20:08:56 02/12/20 23 02/11/2023 CBC WITH DIFFE RENTI AL/PL ATELE T MCV 85 fL 79-97 Not Available [facility] [address] [place], [address], 02/11/2023 20:08:56 02/12/20 23 02/11/2023 CBC WITH DIFFE RENTI AL/PL ATELE T MCH 25.3 pg 26.6-3 3.0 below low normal Not Available [facility] [address] [place], [address], 02/11/2023 20:08:56 02/12/20 23 02/11/2023 CBC WITH DIFFE RENTI AL/PL ATELE T MCHC 29.6 g/dL 31.5-3 5.7 below low normal Not Available [facility] [address] [place], [address], 02/11/2023 20:08:56 02/12/20 23 02/11/2023 CBC WITH DIFFE RENTI AL/PL ATELE T RDW 17.0 % 11.5-1 4.5 above high normal Not Available [facility] [address] [place], [address], 02/11/2023 20:08:56 02/12/20 23 02/11/2023 CBC WITH DIFFE RENTI AL/PL ATELE T platelets 325 x10e3 /uL 150-45 0 Not Available [facility] [address] [place], [address], 02/11/2023 20:08:56 02/12/20 23 02/11/2023 CBC WITH DIFFE RENTI AL/PL ATELE T neutrophils 65 % notest b. Not Available [facility] [address] [place], [address], 02/11/2023 20:08:56 02/12/20 23 02/11/2023 CBC WITH DIFFE RENTI AL/PL ATELE T lymphs 22 % notest b. Not Available [facility] [address] [place], [address], 02/11/2023 20:08:56 02/12/20 23 02/11/2023 CBC WITH DIFFE RENTI AL/PL ATELE T monocytes 8 % notest b. Not Available [facility] [address] [place], [address], 02/11/2023 20:08:56 02/12/20 23 02/11/2023 CBC WITH DIFFE RENTI AL/PL ATELE T eos 4 % notest b. Not Available [facility] [address] [place], [address], 02/11/2023 20:08:56 02/12/20 23 02/11/2023 CBC WITH DIFFE RENTI AL/PL ATELE T basos 1 % notest b. Not Available [facility] [address] [place], [address], 02/11/2023 20:08:56 02/12/20 23 02/11/2023 CBC WITH DIFFE RENTI AL/PL ATELE T neutrophils (absolute) 6.1 x10e3 /uL 1.4-7. 0 Not Available [facility] [address] [place], [address], 02/11/2023 20:08:56 02/12/20 23 02/11/2023 CBC WITH DIFFE RENTI AL/PL ATELE T lymphs (absolute) 2.1 x10e3 /uL 0.7-3. 1 Not Available [facility] [address] [place], [address], 02/11/2023 20:08:56 02/12/20 23 02/11/2023 CBC WITH DIFFE RENTI AL/PL ATELE T monocytes(ab solute) 0.7 x10e3 /uL 0.1-0. 9 Not Available [facility] [address] [place], [address], 02/11/2023 20:08:56 02/12/20 23 02/11/2023 CBC WITH DIFFE RENTI AL/PL ATELE T eos (absolute) 0.4 x10e3 /uL 0.0-0. 4 Not Available [facility] [address] [place], [address], 02/11/2023 20:08:56 02/12/20 23 02/11/2023 CBC WITH DIFFE RENTI AL/PL ATELE T baso (absolute) 0.1 x10e3 /uL 0.0-0. 2 Not Available [facility] [address] [place], [address], 02/11/2023 20:08:56 02/12/20 23 02/11/2023 CBC WITH DIFFE RENTI AL/PL ATELE T immature granulocytes 0.3 % notest b. Not Available [facility] [address] [place], [address], 02/11/2023 20:08:56 02/12/20 23 02/11/2023 CBC WITH DIFFE RENTI AL/PL ATELE T immature grans (abs) 0.0 x10e3 /uL 0.0-0. 1 Not Available [facility] [address] [place], [address], 02/11/2023 20:08:56 02/12/20 23 02/11/2023 CBC WITH DIFFE RENTI AL/PL ATELE T NRBC 0 % 0-0 Not Available [facility] [address] [place], [address], 02/11/2023 20:08:56 02/12/20 23 02/12/2023 TSH RFX ON ABNOR MAL TO FREE T4 TSH 2.550 uIU/m L 0.450- 4.500 Not Available [facility] ([facility]) [address] [facility], [place], [address], 02/12/2023 06:18:05 02/12/2002/11/2023 HEMOG LOBIN A1C hemoglobin A1C 6.3 % 4.8-5. 6 above high normal Predi abete s: 5.7 - 6.4 Diabe zhao: >6.4 Glyce memo contr ol for adult s with diabe zhao: <7.0 Not Available [facility] ([facility]) [address] [facility], [place], [address], 02/12/2023 06:18:05 02/12/2002/12/2023 D-DIM ER D-dimer 0.43 [...] old 0.80 mg/L FEU. Not Available [facility] ([facility]) [address] [facility], [place], [address], 02/12/2023 11:11:32 02/12/20 23 02/12/2023 B-TYP E NATRI URETI C PEPTI DE B-type natriuretic peptide 83.0 pg/mL 0.0-10 0.0 Sieme ns ADVIA [facility] XP metho dolog y Not Available [facility] ([facility]) [address] [facility], [place], [address], 02/12/2023 11:11:33 05/13/20 23 05/13/2023 CBC WITH DIFFE RENTI AL/PL ATELE T WBC 9.8 x10e3 /uL 3.4-10 .8 Not Available [facility] [address] [place], [address], 05/13/2023 19:08:30 05/13/20 23 05/13/2023 CBC WITH DIFFE RENTI AL/PL ATELE T RBC 4.69 x10e6 /uL 3.77-5 .28 Not Available [facility] [address] [place], [address], 05/13/2023 19:08:30 05/13/20 23 05/13/2023 CBC WITH DIFFE RENTI AL/PL ATELE T hemoglobin 11.3 g/dL 11.1-1 5.9 Not Available [facility] [address] [place], [address], 05/13/2023 19:08:30 05/13/20 23 05/13/2023 CBC WITH DIFFE RENTI AL/PL ATELE T hematocrit 38.0 % 34.0-4 6.6 Not Available [facility] [address] [place], [address], 05/13/2023 19:08:30 05/13/20 23 05/13/2023 CBC WITH DIFFE RENTI AL/PL ATELE T MCV 81 fL 79-97 Not Available [facility] [address] [place], [address], 05/13/2023 19:08:30 05/13/20 23 05/13/2023 CBC WITH DIFFE RENTI AL/PL ATELE T MCH 24.1 pg 26.6-3 3.0 below low normal Not Available [facility] [address] [place], [address], 05/13/2023 19:08:30 05/13/20 23 05/13/2023 CBC WITH DIFFE RENTI AL/PL ATELE T MCHC 29.7 g/dL 31.5-3 5.7 below low normal Not Available [facility] [address] [place], [address], 05/13/2023 19:08:30 05/13/20 23 05/13/2023 CBC WITH DIFFE RENTI AL/PL ATELE T RDW 16.2 % 11.5-1 4.5 above high normal Not Available [facility] [address] [place], [address], 05/13/2023 19:08:30 05/13/20 23 05/13/2023 CBC WITH DIFFE RENTI AL/PL ATELE T platelets 296 x10e3 /uL 150-45 0 Not Available [facility] [address] [place], [address], 05/13/2023 19:08:30 05/13/20 23 05/13/2023 CBC WITH DIFFE RENTI AL/PL ATELE T neutrophils 68 % notest b. Not Available [facility] [address] [place], [address], 05/13/2023 19:08:30 05/13/20 23 05/13/2023 CBC WITH DIFFE RENTI AL/PL ATELE T lymphs 22 % notest b. Not Available [facility] [address] [place], [address], 05/13/2023 19:08:30 05/13/20 23 05/13/2023 CBC WITH DIFFE RENTI AL/PL ATELE T monocytes 7 % notest b. Not Available [facility] [address] [place], [address], 05/13/2023 19:08:30 05/13/20 23 05/13/2023 CBC WITH DIFFE RENTI AL/PL ATELE T eos 2 % notest b. Not Available [facility] [address] [place], [address], 05/13/2023 19:08:30 05/13/20 23 05/13/2023 CBC WITH DIFFE RENTI AL/PL ATELE T basos 1 % notest b. Not Available [facility] [address] [place], [address], 05/13/2023 19:08:30 05/13/20 23 05/13/2023 CBC WITH DIFFE RENTI AL/PL ATELE T neutrophils (absolute) 6.7 x10e3 /uL 1.4-7. 0 Not Available [facility] [address] [place], [address], 05/13/2023 19:08:30 05/13/20 23 05/13/2023 CBC WITH DIFFE RENTI AL/PL ATELE T lymphs (absolute) 2.2 x10e3 /uL 0.7-3. 1 Not Available [facility] [address] [place], [address], 05/13/2023 19:08:30 05/13/20 23 05/13/2023 CBC WITH DIFFE RENTI AL/PL ATELE T monocytes(ab solute) 0.7 x10e3 /uL 0.1-0. 9 Not Available [facility] [address] [place], [address], 05/13/2023 19:08:30 05/13/20 23 05/13/2023 CBC WITH DIFFE RENTI AL/PL ATELE T eos (absolute) 0.2 x10e3 /uL 0.0-0. 4 Not Available [facility] [address] [place], [address], 05/13/2023 19:08:30 05/13/20 23 05/13/2023 CBC WITH DIFFE RENTI AL/PL ATELE T baso (absolute) 0.1 x10e3 /uL 0.0-0. 2 Not Available [facility] [address] [place], [address], 05/13/2023 19:08:30 05/13/20 23 05/13/2023 CBC WITH DIFFE RENTI AL/PL ATELE T immature granulocytes 0.3 % notest b. Not Available [facility] [address] [place], [address], 05/13/2023 19:08:30 05/13/20 23 05/13/2023 CBC WITH DIFFE RENTI AL/PL ATELE T immature grans (abs) 0.0 x10e3 /uL 0.0-0. 1 Not Available [facility] [address] [place], [address], 05/13/2023 19:08:30 05/13/20 23 05/13/2023 CBC WITH DIFFE RENTI AL/PL ATELE T NRBC 0 % 0-0 Not Available [facility] [address] [place], [address], 05/13/2023 19:08:30 05/13/20 23 05/14/2023 IRON AND TIBC iron bind.cap.(TI BC) 321 ug/dL 250-45 0 Not Available [facility] ([facility]) [address] [place], [address], 05/14/2023 10:46:17 05/13/20 23 05/14/2023 IRON AND TIBC UIBC 294 ug/dL 131-42 5 Not Available [facility] ([facility]) [facility] [place], [address], 05/14/2023 10:46:17 05/13/20 23 05/14/2023 IRON AND TIBC iron 27 ug/dL 27-159 Not Available [facility] ([facility]) [address] [place], [address], 05/14/2023 10:46:17 05/13/20 23 05/14/2023 IRON AND TIBC iron saturation 8 % 15-55 alert low Not Available [facility] ([facility]) [address] [facility], [place], [address], 05/14/2023 10:46:17 05/13/20 23 05/14/2023 HEMOG LOBIN A1C hemoglobin A1C 6.6 % 4.8-5. 6 above high normal Predi abete s: 5.7 - 6.4 Diabe zhao: >6.4 Glyce memo contr ol for adult s with diabe zhao: <7.0 Not Available [facility] ([facility]) [address] [facility], [place], [address], 05/14/2023 10:46:17 05/13/20 23 05/14/2023 MATT TIN ferritin 13 NG/mL 15-150 below low normal Not Available [facility] ([facility]) [address] [facility], [place], [address], 05/14/2023 10:46:18 Result Notes None recorded. Problems Name Problem SNOMED Code Status Onset Date Resolution Date Notes Provider Name and Address Organization Details Recorded Time Obesity 872334639 Active 2013 EDELMIRA [place], [place] [facility] 0 11:01:07 Tobacco dependence syndrome 10813138 Active 2013 Halima Walker [place], [place] [facility] 3 09:38:14 Iron deficiency anemia 44840190 Active 2017 EDELMIRA [place] [facility] 0 15:05:06 Bilious vomiting 34150303 Active 2017 E[place]LM[place] [facility] 0 15:05:06 Periumbilical pain 471151827 Active 2017 [place] [facility] 0 15:05:06 Gastric ulcer 658171190 Active Wendy Del Valle [place], [place] [facility] 0 15:05:07 Ascites 158662061 Active 2017 [place] [facility] 0 15:05:07 Diarrhea of presumed infectious origin 29757292 Active 2017 E[place] [facility] 0 15:05:07 Infection of tooth 766292779 Active 2022 Mike Arias MD Attn: Rosario joe,[address] [place], [address], [place] [facility] 3 18:13:26 Anxiety 94361362 Active EDELMIRA [place] [facility] 1 10:32:38 Folliculitis 61725469 Active Wendy Del Valle [place] [facility] 1 10:32:38 Dyspareunia 90263744 Active EDELM[place] [facility] 1 10:32:38 Hordeolum externum of lower eyelid 406705281 Active EDE[place] [facility] 1 10:32:38 Right upper quadrant pain 888620417 Active EDELM[place] [facility] 1 10:32:38 Breast lump 24784976 Active Wendy Del Val[place] [facility] 1 10:32:38 Essential hypertension 37448093 Active 2017 EDELMIRA [place], [place] [facility] 3 09:38:07 Abnormal cervical Papanicolaou smear with human papillomavirus deoxyribonucle ic acid detected 329056297 Active EDELM[place] [facility] 1 10:32:38 Dysmenorrhea 952625780 Active EDELM[place]A [place] [facility] 1 [...] 04/21/20 17 LEEP completed Sofy [place] - [facility] 05/06/2017 11:54:38 02/12/20 17 Most Recent Mammogram completed Sofy [place] - [facility] 09/13/2017 08:26:42 06/28/19 17 Cryotherapy - CARDIOLOGY NURSE completed Xin Luna [facility] Attn: Accounting, [address] [place], [address], [facility] - [facility] 06/28/2016 09:53:17 06/28/19 17 Other completed Kelley Gracia [place] - [facility] 06/28/2016 09:15:13 03/17/20 16 Colposcopy completed Pushpa Munoz [facility] Attn: Accounting, [address] [place], [address], [facility] - SI 03/17/2016 11:09:36 Other completed Kelley Gracia [place] - [facility] 06/28/2016 09:14:47 Tubal Ligation completed Kelley Gracia [place] - [facility] 06/28/2016 09:15:20 Imaging Results None recorded. Procedure Notes None recorded. Medical Equipment None Reported. Allergies Allergen ID Allergen Name Allergen Category Reaction Reaction Severity Criticality Documentation Date Start Date Code Code System Note Provider Name and Address Organization Details Recorded Time [id number] lisinopri l medicatio n other Not available Not available 02/20/2018 95867 RxNorm stoma ch pains Not Available Not Available Not Available [id number] 7f175 amlodipin e medicatio n dizziness other Not available Not available Not available 02/20/2018 87506 RxNorm Irvin in BP Not Available Not Available Not Available [id number] [id number] 315f3 tramadol medicatio n hives moderate Not available 08/31/20182017 16715 RxNorm Not Available Not Available Not Available [id number] [id number] 9ml24e88k 86523 epoxy resin environme nt hives Not available Not available 11/03/2021 69866 UNK Not Available Not Available Not Available [id number] ktcd08032 9lr23h12z 50914 penicilli n G Not available hives Not available Not available 06/14/2014 7980 RxNorm Not Available Not Available Not Available [id number] 6520205k0 2824e Substance with sulfonami de structure and antibacte rial mechanism of action (substanc e) medicatio n Not available Not available Not available 06/14/2014 03159 8003 SNOMED Not Available Not Available Not Available [id number] 3521r9j20 p22s4gh29 1cc25 egg extract food,medi cation hives moderate Not available 06/28/20162017 82555 15 RxNorm Not Available Not Available Not [...] DateTime 06/03/2022 170.18 cm Trista Luna MA [facility] 16:30:56 Date Recorded Body mass index (BMI) Body weight Provider Name and Address Organization Details Last Updated DateTime 06/03/2022 34.3 kg/m2 94152.08 g Trista Luna MA [facility] 06/03/2022 16:31:05 Date Recorded Heart rate Provider Name an d Address Organization Details Last Updated DateTime 06/03/2022 68 /min Trista Luna MA [facility] 16:31:09 Date Recorded Body temperature Provider Name a nd Address Organization Details Last Updated DateTime 06/03/2022 98.3 [degF] Trista Luna MA [facility] 2021 16:31:16 Date Recorded Respiratory rate Provider Name a nd Address Organization Details Last Updated DateTime 06/03/2022 20 /min Trista Luna MA [facility] 16:31:19 Date Recorded Body height Provider Name an d Address Organization Details Last Updated DateTime 01/12/2023 170.18 cm Ariela Roberts MA [facility] 01/12 16:37:44 Date Recorded Body mass index (BMI) Body weight Provider Name and Address Organization Details Last Updated DateTime 01/12/2023 35.4 kg/m2 758602.59 g Ariela Roberts MA [facility] 01/12/2023 16:37:53 Date Recorded Respiratory rate Provider Name a nd Address Organization Details Last Updated DateTime 01/12/2023 16 /min Ariela Roberts MA [facility] 01/12/2023 16:43:41 Date Recorded Oxygen saturation Oxygen saturation in Arterial blood by Pulse oximetry Provider Name and Address Organization Details Last Updated DateTime 01/12/2023 100 % 100 % Ariela Roberts MA [facility] 01/12/2023 16:44:01 Date Recorded Heart rate Provider Name an d Address Organization Details Last Updated DateTime 01/12/2023 58 /min EDELMIRA Quiroz [facility] 01/12 16:44:05 Date Recorded Body height Provider Name an d Address Organization Details Last Updated DateTime 02/11/2023 170.18 cm Halima Walker MA [facility] 08:58:23 Date Recorded Body mass index (BMI) Body weight Provider Name and Address Organization Details Last Updated DateTime 02/11/2023 35.3 kg/m2 533216.03 g Halima Walker MA [facility] 02/11/2023 08:58:32 Date Recorded Respiratory rate Provider Name a nd Address Organization Details Last Updated DateTime 02/11/2023 16 /min Halima Walker MA [facility] 09:03:57 Date Recorded Body temperature Provider Name a nd Address Organization Details Last Updated DateTime 02/11/2023 98.3 [degF] Halima Walker MA [facility] 02/12/20 09:05:02 Date Recorded Oxygen saturation Oxygen saturation in Arterial blood by Pulse oximetry Provider Name and Address Organization Details Last Updated DateTime 02/11/2023 99 % 99 % Halima Walker MA [facility] 02/11/2023 09:05:03 Date Recorded Heart rate Provider Name an d Address Organization Details Last Updated DateTime 02/11/2023 60 /min Halima Walker MA [facility] 09:05:13 Date Recorded Body height Provider Name an d Address Organization Details Last Updated DateTime 04/14/2023 170.18 cm Alexa Siddiqui MA [facility] 2022 10:05:29 Date Recorded Body mass index (BMI) Body weight Provider Name and Address Organization Details Last Updated DateTime 04/14/2023 35.2 kg/m2 414413.49 g Alexa Siddiqui MA [facility] 04/14/2023 10:09:43 Date Recorded Heart rate Provider Name an d Address Organization Details Last Updated DateTime 04/14/2023 71 /min Alexa Siddiqui MA [facility] 2022 10:11:16 Date Recorded Body temperature Provider Name a nd Address Organization Details Last Updated DateTime 04/14/2023 98.1 [degF] Alexa Siddiqui MA [facility] 04/14/2023 10:11:20 Date Recorded Respiratory rate Provider Name a nd Address Organization Details Last Updated DateTime 04/14/2023 16 /min Alexa Siddiqui MA [facility] 04/14/2023 10:11:22 Date Recorded Body height Provider Name an d Address Organization Details Last Updated DateTime 05/13/2023 170.18 cm Halima Walker MA [facility] 3 09:51:02 Date Recorded Body mass index (BMI) Body weight Provider Name and Address Organization Details Last Updated DateTime 05/13/2023 34.6 kg/m2 849759.61 g Halima Walker MA [facility] 05/13/2023 09:51:08 Date Recorded Body temperature Provider Name a nd Address Organization Details Last Updated DateTime 05/13/2023 98.3 [degF] Halima Walker MA [facility] 05/13/20 09:54:17 Date Recorded Oxygen saturation Oxygen saturation in Arterial blood by Pulse oximetry Provider Name and Address Organization Details Last Updated DateTime 05/13/2023 99 % 99 % Halima Walker MA [facility] 05/13/2023 09:54:20 Date Recorded Respiratory rate Provider Name a nd Address Organization Details Last Updated DateTime 05/13/2023 16 /min Halima Walker MA [facility] 3 09:54:23 Date Recorded Heart rate Provider Name an d Address Organization Details Last Updated DateTime 05/13/2023 61 /min Halima Walker MA [facility] 09:54:41 Date Recorded Body height Provider Name an d Address Organization Details Last Updated DateTime 06/14/2023 170.18 cm Alexa Siddiqui MA [facility] 2023 15:43:18 Date Recorded Body mass index (BMI) Body weight Provider Name and Address Organization Details Last Updated DateTime 06/14/2023 35.7 kg/m2 486059.41 g Alexa Siddiqui MA [facility] 06/14/2023 15:43:23 Date Recorded Heart rate Provider Name an d Address Organization Details Last Updated DateTime 06/14/2023 65 /min Alexa Siddiqui MA [facility] 2023 15:49:46 Date Recorded Body temperature Provider Name a nd Address Organization Details Last Updated DateTime 06/14/2023 96.2 [degF] Alexa Siddiqui MA [facility] 06/14/2023 15:49:53 Date Recorded Respiratory rate Provider Name a nd Address Organization Details Last Updated DateTime 06/14/2023 16 /min Alexa Siddiqui MA [facility] 06/14/2023 15:49:56 Date Recorded Systolic blood pressure Diastolic blood pressure Provider Name and Address Organization Details Last Updated DateTime 06/03/2022 140 mm[Hg] 70 mm[Hg] Trista Luna MA [facility] 06/03/2022 16:32:20 Date Recorded Systolic blood pressure Diastolic blood pressure Provider Name and Address Organization Details Last Updated DateTime 01/12/2023 125 mm[Hg] 82 mm[Hg] Ariela Roberts MA [facility] 01/12/2023 16:44:04 Date Recorded Systolic blood pressure Diastolic blood pressure Provider Name and Address Organization Details Last Updated DateTime 02/11/2023 128 mm[Hg] 79 mm[Hg] Halima Walker MA [facility] 02/11/2023 09:05:27 Date Recorded Systolic blood pressure Diastolic blood pressure Provider Name and Address Organization Details Last Updated DateTime 04/14/2023 125 mm[Hg] 82 mm[Hg] Alexa Siddiqui MA [facility] 04/14/2023 10:11:13 Date Recorded Systolic blood pressure Diastolic blood pressure Provider Name and Address Organization Details Last Updated DateTime 05/13/2023 117 mm[Hg] 76 mm[Hg] Halima Walker MA [facility] 05/13/2023 09:54:43 Date Recorded Systolic blood pressure Diastolic blood pressure Provider Name and Address Organization Details Last Updated DateTime 06/14/2023 138 mm[Hg] 83 mm[Hg] Alexa Siddiqui MA [facility] 06/14/2023 15:49:40 Social History Question Answer Notes LastModified by Organizat ion Details LastModified Time Tobacco Smoking Status Current Every Day Smoker Verónica Zacarias MA null, [facility] 06/14/2014 11:12:13 Do You Have An [...] available 09/06/2019 If Patient Spent Time In [facility] - Does The Patient Live In [facility]? No Information not available 09/06/2019 In The 14 Days Before Symptom Onset, Have You Had Close Contact With A Person Who Is Under Investigation For COVID-19 While That Person Was Ill? No Information not available 09/06/2019 In The 14 Days Before Symptom Onset, Did The Patient Spend Time In [facility]? No Information not available 09/06/2019 Have [...] Anxious, Or Unable To Sleep At Night)? [id number] Information not available 09/05/2020 Do You Use [...] Response Coronary Artery Disease N Other N High Blood Pressure Y Atrial Fibrillation N Thyroid Problems Y Kidney or Bladder Problems N GI Problems N Depression Y COPD N Blood Clots N Skin Problems N Eating Disorder N Anemia N Heart Attack (MS) N Diabetes N Anxiety Disorder Y Muscle, [...] SNOMED-CT Code Diagnosis ICD10 Code Diagnosis Note [id number] [facility] [address] [place] [address] 06/14/2014 10:54:43 06/17/2014 17:19:18 Upper respiratory infection 14166801 [id number] [facility] [address] [place] [address] 08/05/2014 16:41:29 08/09/2014 13:57:41 Upper respiratory infection 92783543 [id number] Ximena Alberto [facility] [address] [place] [address] 08/19/2014 10:20:29 08/19/2014 11:09:20 Upper respiratory infection 01406151 Anxiety 98930621 [id number] [facility] [address] [place] [address] 09/10/2014 10:40:35 09/10/2014 11:33:30 Upper respiratory infection 59606137 Folliculitis 31532820 [id number] Ximena Alberto [facility] [address] [place] [address] 10/15/2014 11:10:32 10/15/2014 12:01:00 Dyspareunia 42995290 [id number] Leon Mensah PA-C [facility] [address] [place] [address] 07/18/2015 10:32:01 07/18/2015 11:05:23 Upper respiratory infection 71573850 J06.9 [id number] Leon Mensah PA-C [facility] [address] [place] [address] 01/09/2016 14:37:53 01/09/2016 15:47:37 Hordeolum externum of lower eyelid 012830094 H00.019 Right uppe r quadrant pain 742245724 R10.11 [id number] Leon Mensah PA-C [facility] [address] [place] [address] 02/10/2016 10:56:58 02/10/2016 11:55:11 Breast lump 79857621 N63 Anxiety 78075185 F41.9 Essential hypertension 79265435 I10 [id number] Leon Mensah PA-C [facility] [address] [place] [address] 03/03/2016 16:52:14 03/03/2016 17:28:42 Gynecologic examination 80821740 Z01.645 [id number] Pushpa Munoz [facility] Sony Salazar ([place] [address]) [address] [facility] [place] [address] 03/17/2016 10:20:08 03/17/2016 11:10:31 Abnormal cervical Papanicolaou smear with human papillomavirus deoxyribonucleic acid detected 706411264 R87.619 Dysmenorrhea 073995127 N 94.6 [id number] SKINNY aHrry Sony Salazar ([facility] 122) [address] [facility] [address] 04/09/2016 10:20:15 04/09/2016 14:03:32 Thyroid disorder screening 371545469 Z13.29 Dysmenorrhea 323476079 N 94.6 [id number] Pushpa Munoz [facility] Sony Salazar ([facility] 122) [address] [facility] [address] 05/11/2016 08:56:34 05/14/2016 11:24:42 Furuncle of breast 22724955 N61.1 patient has taken keflex in the past with no problem [id number] VANDANA Fletcher [address] [place] [address] 05/26/2016 10:44:53 05/26/2016 12:59:33 Cellulitis of head 227551306 L03.274 [id number] VANDANA Fletcher [address] [place] [address] 06/17/2016 11:09:28 06/17/2016 12:51:41 Essential hypertension 21794726 I10 Acute bronchitis 3719188 2 J20.0 [id number] Xin Luna [facility] Sony Salazar ([facility] 122) [address] [facility] [address] 06/28/2016 08:59:23 06/28/2016 12:21:49 Cervicovaginal cytology: Low grade squamous intraepithelial lesion 449909573 R87.612 Dysmenorrhea 346613209 N 94.6 [id number] VANDANA Fletcher [address] [place] [address] 07/01/2016 10:25:06 07/01/2016 17:27:56 Essential hypertension 60230039 I10 [id number] VANDANA Fletcher [address] [place] [address] 07/29/2016 09:42:26 07/29/2016 10:49:06 Upper respiratory infection 51543959 J00 [id number] Xin Luna [facility] Sony Salazar ([facility] 122) [address] [facility] [address] 10/04/2016 09:04:36 10/04/2016 17:54:35 Abnormal cervical Papanicolaou smear 309863880 R87.760 [id number] MD Sony Bansal ([facility] 205) [address] [facility] [address] 02/15/2017 10:33:02 02/15/2017 14:22:27 Low grade squamous intraepithelial lesion on cervical Papanicolaou smear 7496743638 9105 R87.011 [id number] VANDANA Fletcher [address] [place] [address] 03/10/2017 10:12:47 03/10/2017 11:15:11 Essential hypertension 55490273 I10 Chronic re current sinusitis 089787985 J32.9 Generalize d anxiety disorder 01297029 F41.1 [id number] VANDANA Fletcher [facility] [address] [place] [address] 03/17/2017 10:31:49 03/17/2017 13:26:30 Essential hypertension 24863758 I10 [id number] Gutierrez Del Valle MD [facility] ([facility] 205) [address] [facility] [place] [address] 05/06/2017 11:26:41 05/06/2017 13:09:40 Postoperative visit 736344959 Z09 [id number] EDELMIRA Huerta [address] [place] [address] 08/31/2017 14:20:37 08/31/2017 16:05:56 Adrenal mass 242958263 R19.09 Essential hypertension 15248065 I10 [id number] Leon Mensah PA-C [facility] [address] [place] [address] 02/20/2018 15:04:56 02/20/2018 16:13:33 Essential hypertension 67850767 I10 Generalize d anxiety disorder 49917421 F41.1 [id number] VANDANA Fletcher [address] [place] [address] 08/31/2018 10:31:43 08/31/2018 12:48:32 Venereal disease screening 375582275 Z11.3 Generalize d anxiety disorder 66236598 F41.1 Osteoarthritis 651784628 M15.0 Essential hypertension 55659237 I10 [id number] VANDANA Fletcher [address] [place] [address] 09/12/2018 10:16:09 09/12/2018 12:43:20 Coronary arteriosclerosis in [place] artery 2232894798 107 I25.10 Folliculitis 16737846 L7 3.9 Nausea and vomiting 1693 2000 R11.2 [id number] Gutierrez Del Valle MD [facility] [address] [facility] [place] [address] 10/09/2018 11:45:32 10/10/2018 08:15:27 Gynecologic examination 21358212 Z01.419 Screening for malignant neoplasm of breast 011305357 Z12.31 Menorrhagia 392496208 N9 2.0 Dysmenorrhea 551571927 N 94.6 [id number] Leon Mensah PA-C [facility] [address] [place] [address] 03/13/2019 17:54:37 03/13/2019 19:23:21 Essential hypertension 95389067 I10 [id number] Leon Mensah PA-C [facility] [address] [place] [address] 04/10/2019 17:39:50 04/10/2019 18:42:07 Essential hypertension 69189224 I10 Coronary arteriosclerosis 66880338 I25.10 Mass of le ft adrenal gland 3120603834 5304036 E27.8 [id number] Leon Mensah PA-C [facility] [address] [place] [address] 07/04/2019 14:54:21 07/05/2019 11:21:54 Essential hypertension 67196275 I10 Pain of ri ght shoulder joint 3018986854 2333573 M25.436 [id number] Leon Mensah PA-C [facility] [address] [place] [address] 09/06/2019 10:49:32 09/06/2019 12:31:55 Coronary arteriosclerosis in [place] artery 2591128779 107 I25.10 Dyspnea on exertion 6084 5006 R06.09 Pain of ri ght shoulder joint 1276146798 8015003 M25.511 Pain in right arm 638902 004 M79.601 Essential hypertension 58140681 I10 [id number] VANDANA Fletcher [address] [place] [address] 09/20/2019 10:25:32 09/26/2019 11:57:56 Coronary arteriosclerosis in [place] artery 4214889970 107 I25.10 Osteoarthritis 242918979 M15.0 [id number] Leon Mensah PA-C [facility] [address] [place] [address] 10/15/2019 11:17:44 10/15/2019 13:03:25 Right lower quadrant pain 149463737 R10.31 Coronary arteriosclerosis in [place] artery 4621957632 107 I25.10 [id number] Wendy Del Valle MA [facility] [address] [place] [address] 12/05/2019 16:06:37 12/06/2019 09:33:41 Osteoarthritis 020189855 M15.0 [id number] Leon Mensah PA-C [facility] [address] [place] [address] 12/10/2019 14:40:38 12/10/2019 16:11:13 Essential hypertension 41888936 I10 Abnormal c ervical Papanicolaou smear with human papillomavirus deoxyribonucleic acid detected 224516713 R87.619 Mass of le ft adrenal gland 4459083238 2483337 E27.8 Lumbosacra l radiculopathy 5151248 M54.17 [id number] Leon Mensah PA-C [facility] [address] [place] [address] 02/27/2020 11:50:02 02/27/2020 12:54:54 Bilateral shoulder joint pain 3809822482 0620468 M25.511 Atypical chest pain 1025 80344 R07.89 Essential hypertension 37415344 I10 [id number] Leon Mensah PA-C [facility] [address] [place] [address] 09/05/2020 12:00:27 09/09/2020 10:31:23 Furuncle of groin 50019202 L02.224 Pruritic rash 46963678 L 28.2 Essential hypertension 43040655 I10 [id number] Leon Mensah PA-C [facility] [address] [place] [address] 03/04/2021 10:23:32 03/04/2021 11:25:49 Suspected COVID-19 784788463 Z03.89 [id number] Leon Mensah PA-C [facility] [address] [facility] [place] [address] 11/03/2021 14:21:29 11/03/2021 15:12:33 Low back pain 540170625 M54.59 Backache w ith radiating pain 206607690 M54.07 Spasm of back muscles 20 9847633 M62.178 [id number] Leon Mensah PA-C [facility] [address] [place] [address] 02/15/2022 11:24:07 02/15/2022 12:52:59 Backache with radiating pain 585501716 M54.05 Obesity 834443626 E66.9 Overweight 490282537 E66 .3 [id number] XOCHILT JO MD [place] [address] [facility] [address] [place] [address] 06/03/2022 16:02:00 06/08/2022 14:30:31 Urinary tract infectious disease 79205139 N39.0 Possible, recently completed abx, increased frequency and changes in color/turb idity.- Have encouraged to drink more fluids- Will check urine and treat appropriat melissa. Infection of tooth 09152 8007 K04.7 Continue with Lidocaine mouth wash, will also give lozenges to help with mouth pain.Pt completed 7 day Doxy 5d prednisone for cellulitis : improved.P oor dentition with periodonti tis, pain will on go away when she can see a dentist.- Follow up in 2 weeks after dentis Osteoarthritis [id number] M19.90 Needs refill on medication .- Pt has tolerated in the past. Have educated to not take with other forms of NSAIDs. Have also advised she take with pepcid or PPI to protect against GI ulcer. She said she has some at home and will start taking. She expressed her understand ing. Smoker [id number] F17.200 Pt has been smoking 1pk/d for long time. Been smoking since teenager. Would like to quit and askes for assistance .- Will give patches. [id number] MD Sony LOCK 14 IM [address] [facility] [address] [place] [address] 02/11/2023 08:44:57 02/21/2023 13:35:07 Obesity 392596909 E66.9 healthy lifestyle encouraged including regular exercise of at least 150min per week, diet rich in plant based foods and low in added sugars, processed carbohydra zhao, and high salt foods. Edema of l ower extremity [id number] R60.0 LE edema for the past 2 [...] dvt ulstraound of LE. Infection of tooth 24856 8007 K04.7 . Poor dentition with periodonti [...] in the past will prescribe Essential hypertension 57368424 I10 currently on amlodipine 10mg, atenolol 50BP well controlled today ( 128/79)--> pt with LE edema that is recent for the past 2 weeks, has been on amlodipine since 2019. less likely a side effect of amlodipine - Multi vess el coronary artery disease 261403490 I25.10 hx of CAD s/p stentFollo ws with cardiology Dr. Bennett.curr ently on BB ( atenolol 50), aspirin 81, statin ( atorvastat in 80) Hyperlipidemia 40627497 E78.5 currently on atorvastat in 80 mgwill get a lipid panel [id number] MD Sony LOCK 14 IM [address] [facility] [address] [place] [address] 04/14/2023 10:00:11 04/27/2023 08:55:50 Infection of tooth 512010863 K04.7 Poor dentition with bad periodonti tis [...] for dental surgery end of jul. Urticaria 594378435 L50. 9 Patient under increased stress recently [...] response as well. Iron defic iency anemia 23664790 D50.9 Last Hb was 10.9 on 02/11/23Cont inue iron supplement 65 mg. Counseled patient that it is okay to take every other day to avoid constipati on. Willing to workup cause of anemia if cardiologi st does not. Will follow up at next visit in May. High gluco se level in blood 834038183 R73.9 Per patient, cardiology did an A1C [...] minutes 4-5 times a week. Essential hypertension 03862225 I10 Managing with amlodipine 10 mg and atenolol 50 mg daily. BP well controlled today, 125/82. SARS-CoV-2 mRNA vaccine declined 2008119800 Z28.21 Influenza vaccination declined 339753552 Z28.21 [id number] MD Sony [place] 14 IM [address] [facility] [address] [place] [address] 05/13/2023 09:42:09 05/20/2023 12:55:40 Obesity 766124799 E66.9 BMI: 34.6Have spoken with pt about the health risks associated with having an elevated BMI and educated them about lifestyle modificati on with diet and exercise.- Have encouraged pt to stay active at least x4 days a week totaling at least x40min/aadn e if able to tolerate.- Have also [...] glasses of water day) Infection of tooth 95027 8007 K04.7 Poor dentition with bad periodonti tis and mutiple broken teeth. She has seen her dentist who has postponed the extraction of the teeth till end of Jul 2022. Discontinu ed clindamyci n that was given by dentist due to potential drug reaction, though unlikely.- Completed cefdinir 10d and metronidaz ole 7days- Will give Peridex mouth wash solution TID jul. Essential hypertension 45035092 I10 BP at goal and well controlled today, 117/76- Managing with amlodipine 10 mg and atenolol 50 mg daily. Anemia 363237534 D64.9 History of CHAYO, pt not taking supplement s. Will get B12 and Folate as well to rule out underlinin g macrocytos is in the setting of CHAYO.- Will treat as needed. High gluco se level in blood 851675741 R73.9 Per patient, cardiology did an A1C [...] DM workup eye/foot exams, baseline labs etc. [id number] Alicia Cruz MD [place] 14 IM [address] [facility] [address] [place] [address] 06/14/2023 15:31:32 07/11/2023 14:35:43 Postoperative visit [id number] Z09 Healing Lap rubia port incisions. Dry, [...] Garzon Member ID Guarantor Name 06/03/2022 1 [facility] (MEDICAID HMO) [id number] Padmini Barbara Dierking [id number] Padmini Barbara Dierking 02/11/2023 1 [facility] (MEDICAID HMO) [id number] Padmini Barbara Dierking [id number] Padmini Barbara Dierking 04/14/2023 1 [facility] (MEDICAID HMO) [id number] Padmini Barbara Dierking [id number] Padmini Barbara Dierking 05/13/2023 1 [facility] (MEDICAID HMO) [id number] Padmini Barbara Dierking [id number] Padmini Barbara Dierking 06/14/2023 1 [facility] (MEDICAID HMO) [id number] 0003 Padmini Barbara Dierking [id number] Padmini Barbara Dierking Notes Date Note Type [...] weakness. XOCHILT JO MD Attn: [address] [place], [address], [facility] 06/09/2022 12:34:51 02/11/2023 text/html 51 [...] clots. XOCHILT JO MD Attn: [address] [place], [address], [place] [facility] 02/17/2023 21:41:54 04/14/2023 text/html [...] in vision. Ms. Torres notes that her farm management professor told her she has T2DM after doing an A1c that was 6.5%. She has concerns about how to manage diabetes and what to do about her diet. She is not currently exercising. XOCHILT JO MD Attn: [address] [place], [address], [facility] 04/22/2023 11:30:07 05/13/2023 text/html CC: tooth pain [...] DM vs PreDM.Ms. Torres notes that her farm management professor told her she has T2DM after doing an A1c that was 6.5%. She has concerns about how to manage diabetes and what to do about her diet. She is not currently exercising. Has been doing LM since being told. She has lost 4lbs since last apt. She says she was told she needs workup for her anemia by her farm management professor but has not gotten the labs. She would like to get them today if that is possible. Amna Milton MD Attn: [address] [place], [address], [facility] 05/19/2023 20:28:00 06/14/2023 text/html CC: Postop Tulio novak Presented to [facility] ED with and pain. Was confirmed to [...] sweats. Alicia Cruz MD Attn: [address] [place], [address], [facility] 07/09/2023 10:07:08 OBGyn Episode No OBEpisode recorded.
--- OUTSIDE RECORDS SUMMARY | 2024-07-05 01:42 | XMS_ITS | Referral Summary ---
Author Organization [facility] Address [address] [place] [address] Care Team Providers Care Tobacco Stripping Machine Operator Name Role Phone Danyelle Cristobal MD Unavailable [phone] Antonio Moon DO Unavailable [phone] Aditya Mensah Primary Care Provider [phone] Mike Arias MD Unavailable [phone] Miscellaneous, Not In File Unavailable Unava ilable [...] w/ path IVON III. Path reviewed at [facility] and in agreement. -12/26/20: Coalescent [...] 01/24/2020 Assessment & Plan (08/05/2021 10:27 AM SHANK TURNER): Left adrenal adenoma detected in early 2017 the adenoma showed up on MRI on 04/18/19- 3.0 cm Stable in size on CT scan on 10/11/19 and 08/22/20 ??patient had normal electrolytes on 02/23/21 [place]'s was rules out with 1 mg Dexamethasone suppression test on 02/02/20 Serum metanephrines were also normal Normal Aldosterone and PRA on 08/23/20 Plan: ?? The diagnosis reviewed with patient Check 1 mg dexamethasone suppression test If condition stable then will be checked again in one year. Assessment & Plan (08/04/2020 10:23 AM SHANK TURNER): Left adrenal adenoma detected in early 2017 [...] (12/26/2020): Added automatically from request for surgery [id number] Assessment & Plan (12/05/2019 10:38 AM CDT): Colonoscopy showed diverticulosis, one adenoma polyp, and internal hemorrhoids. There was no evidence of active diverticulitis. Pt says she continues to get this RLQ pain that starts with her menstrual period and stops once her cycle is over. No GI source of pain. Pt advised to see agile developer as this is likely agile developer origin given it only occurs during menstruation. [...] for about 14 years. Likely related to agile developer issue but will do colonoscopy to rule out GI issues. Pt encouraged to make agile developer appt. She says she has an appointment in January. Acute diverticulitis 10/22/2019 Overview (10/22/2019): Added automatically from request for surgery [id number] Assessment & Plan (10/22/2019 11:08 AM CDT): [...] nutrition consultation Coronary artery disease invo lving [place] coronary artery of [place] heart without angina pectoris 09/26/2019 Assessment & [...] atenolol Assessment & Plan (08/05/2021 10:26 AM SHANK TURNER): Controlled with medication Complicated with CAD- had stent placed. ?? Plan: ?? Continue same medication and follow up with PCP and cardiology Assessment & Plan (08/04/2020 10:24 AM SHANK TURNER): Controlled with medication Complicated with CAD- had [...] often do you attend chur ch or hoahaoism services? Never 05/24/2022 Do you belong to any clubs o r organizations such as adventist groups, unions, fraternal or athletic groups, or [...] place to sleep or slept in a correction (including now)? No 05/24/2022 Personal Safety Answer [...] on file Legal Sex Female 12:30 AM SHANK TURNER Gender Identity Female 01/17/2020 4:14 PM CDT [...] on file Medical Devices Implanted Type Area Manager Wealth Management Device Identifier Shelf Expiration Date Model / Serial / Lot [employer] [id number] Synergy 2.5mm 12mm 144cm Radiopaque 1 Access Port Inflation Lumen - [id number] Implanted:Qty: 1 on 09/07/2018 by Sulaiman Lynch MD at [facility] Stent [employer] 11/23/2019 [id number] / / [id number] [employer] [id number] System Coronary Stent Xience Isabel Everolimus L8 Mm Od3.5 Mm Rapid Exchange - [id number] Implanted:Qty: 1 on 09/07/2018 by Sulaiman Lynch MD at [facility] Stent [employer] 04/09/2019 [id number] / / [id number] [employer] [id number] Synergy 2.25mm 12mm 144cm Radiopaque 1 Access Port Inflation - [id number] Implanted:Qty: 1 on 09/07/2018 by Sulaiman Lynch MD at [facility] Stent [employer] 04/17/2020 [id number] / / [id number] Procedures Procedure Name Priority Date/Time Associated Diagnosis [...] PM CDT Narrative 10/03/2020 9:02 AM CDT [facility] results best viewed via link to PDF [facility] [place] [address] CYTOPATHOLOGY REPORT FINAL Patient Name: ??CASS TORRES Gender: ??F : ??1970 (Age: 49) Address: ??[address] [place], [place] ??[address] Hospital #: ??[id number] Service: ??Oncology Location: ??[facility] Patient Type: ??[facility] Ancillary Taken: ??09/19/2020 Received: ??09/19/2020 [...] 68. ??These HPV tests were performed at [facility] in [place], [place] utilizing the Gen-Probe Aptima assay. This specimen has been rescreened in accordance with this laboratory's Scientific Research Associate Program. 10/03/2020 09:02 TAY Renner, CT(ASCP)[facility] Report Electronically Reviewed and Signed [...] dysplasia. The HPV test was performed by [facility], [address] [place] [address]. Report Images and scanned documents, if included only viewable in PDF version The performance characteristics of some immunohistochemical stains, in-situ hybridization and fluorescence in-situ hybridization tests and immunophenotyping by flow cytometry cited in this report (if any) were determined by the Surgical Pathology Department at [facility] as part of an ongoing quality assurance engineer program and in compliance with federally mandated [...] determined by the Surgical Pathology Department of [facility]. ??It has not been cleared or approved by the U. S. Food and Drug Administration. us Notinfile Unknown LAB CYTOLOGY ORDERABLES Final Result * COLONOSCOPY (11/28/2019 9:16 AM CDT) Anatomical Region Laterality Modality Other Narrative Procedure Note Danyelle Cristobal MD - 11/28/2019 9:16 AM CDT [facility] Patient Name: Cass Torres Procedure Date: 11/28/2019 9:16 AM Date of : 1970 Admit Type: Outpatient Age: 48 Gender: Female Attending MD: Danyelle Cristobal M.D. Room: [facility] ENDOSCOPY ROOM 1 Note Status: Finalized [...] passed under direct vision.The Pediatric Colonoscope [id number] was introduced through the anus and advanced [...] 9:16 AM Procedure Code(s): --- Professional --- 87781, Colonoscopy, flexible; with removal of tumor(s), polyp(s), or other lesion(s) by snare technique Diagnosis Code(s): --- Professional --- K64.8, Other hemorrhoids D12.5, Benign neoplasm of sigmoid colon R10.31, Right lower quadrant pain K57.30, Diverticulosis of large intestine without perforation orabscess without bleeding CPT copyright 2017 [employer]. All rights reserved. The codes documented in this report are preliminary and upon analytics specialist reviewmay be revised to meet current compliance requirements. Recognized by the [employer] for promoting quality in endoscopy Danyelle Cristobal MD ENDOSCOPY PROCEDURES Final Result * Screening Mammogram Bilateral W Gee (09/12/2017 11:29 AM CDT) Anatomical Region Laterality Modality Breast Bilateral Mammography Addenda Addendum by Thom Castillo MD on 09/19/2017 3:24 PM CDT ADDENDUM #1 Comparison to previous mammogram at [facility] in [facility] on [...] tomosynthesis. COMPARISON: None available. ??Previous mammogram at [facility] in [place], [place]; not brought today for comparison. FINDINGS: [...] tomosynthesis. COMPARISON: None available. ??Previous mammogram at [facility] in [place], [place]; not brought today for comparison. FINDINGS: [...] [facility] Comment:Testing performed by : [facility], [address] [place] [address], [address] Hep B core IgM Negative Negative [facility] ([facility]) Comment:Testing performed by : [facility], [address] [place] [address], [address] Hep C Ab Negative Negative [facility] Comment:Testing performed by : [facility], [address] [place] [address], [address] HepBsAg Negative Negative [facility] ([facility] Comment:Testing performed by : [facility], [address] [place] [address], [address] Blood specimen (specimen) 08/15/2017 12:57 PM CDT 08/15/2017 7:02 PM CDT Narrative [facility] ([place] - 08/15/2017 8:46 PM CDT us Kellie Maguire MD LAB MICROBIOLOGY - GENERAL OR DERABLES Final Result [facility]AL[facility] BRANDT ([place]) [facility] Department [place] [address] from Last 3 Months or Most Recently Relevant to Health Maintenance Insurance [facility] Advance Directives For more information, please contact: [phone] * Full Code (Latest Code Status on [...] 8:33 AM 11/28/2019 8:33 AM Care Teams Tobacco Stripping Machine Operator Relationship Specialty Start Date End Date Aditya Mensah PA [address] [place] [address] PCP - General Family Practice 05/23/22 Danyelle Cristobal MD Consulting Physician Gastroenterology 08/16/17 Antonio Moon DO [address] [place] [address] DR ROBB [address] [place] [address] Cardiovascular Disease 09/07/18 Mike Arias MD [address] [place] [address] Resident Family Medicine 05/25/22 Miscellaneous, Not In File 08/26/22
--- OUTSIDE RECORDS SUMMARY | 2024-07-05 01:42 | XMS_ITS | Data Portability ---
Author Organization [facility] , [facility] Address [address] [place] [address] Care Team Providers Care Instrumentation Engineer Name Role Phone [facility] Supervisor Underwriting Clerks Assessment No assessment recorded. Plan of Treatment Reminders Order Date Submit Date Provider Last Modified By Organization Details Last Modified Time Details Appointments None recorded. Lab biopsy, tissue - endometrial biopsy 2022 [facility], [address] [place], [address], 3 22:33:21 FSH (follicle-s timulating hormone), serum 2022 023 Kwaga Mervin, [address] [place], [address], 3 11:11:11 estradiol, serum 2022 023 [facility], [address] [place], [address], 3 15:36:50 pap, LB 2022 023 [facility], [address] [place], [address], 3 13:36:53 HPV E6+E7 mRNA, qualitative PCR, cervix 2022 023 Kwaga Mervin, [address] [place], [address], 3 15:05:39 Referral None recorded. Procedures None recorded. Surgeries None recorded. Imaging US, transvagina l 2022 023 [email or web address] Not available 15:08:52 MAMMO, screening, digital, bilateral 2022 023 [email or web address] [facility]? [facility], [address] [facility], [place], [address], 12:07:17 Medication Orders Provera 10 mg tablet 2022 023 [email or web address] 1 [facility], [address] [place], [address], 3 12:51:15 Provera 10 mg tablet 2022 023 [email or web address] 1 [facility], [address] [place], [address], 3 12:51:15 Prometrium 200 mg capsule 2022 023 [facility], [address] [place], [address], 12:52:12 Patient TargetsNo targets recorded. Patient Instructions Encounter Date Encounter Id Patient Instructions Last Modified By Organization Details Last Modified Time 03/21/2023 [id number] endometrial biopsy information [email or web address] Not available 03/21/2023 [...] is recom alison d (orde r code [id number] ). Jeannine cordero note: patie nts being [...] s. [facility] s order code 40630 -Estr adiol , Ultra sensi tive LC/MS [...] NUMBE R: 866.6 97.83 78 Not Available [facility] [address] [place], [address], 03/25/2023 15:36:50 03/21/20 23 03/22/2023 FSH FSH [...] : 23.0- 116.6 mIU/m L Not Available [place] [facility] [address] [place], [address], 03/22/2023 11:11:11 03/21/2003/23/2023 HPV HIGH RISK HPV [...] l cervi sissy cytol ogy. Not Available [place] [facility] [address] [facility], [place], [address], 03/23/2023 15:05:39 03/21/2003/23/2023 TISSU E PATHO LOGY clinical information Abnor mal uteri ne bleed ing Not Available [place] [address] [place], [address], 03/23/2023 22:33:21 03/21/20 23 03/23/2023 TISSU E PATHO LOGY pathologist Vamsi clarke M.D., Board Certi fied in Anato memo Patho logy and Clini sissy Patho logy( elect artur sanchez) Not Available [facility] [address] [place], [address], 03/23/2023 22:33:21 03/21/20 23 03/23/2023 TISSU E PATHO LOGY A source Endom etriu m, biops y Not Available [facility] [address] , [place], [address], 03/23/2023 22:33:21 03/21/2003/23/2023 TISSU E PATHO LOGY [...] DIAGN OSTIC S - [place] [address] [facility] [address], [place] [address] Labor atory Direc tor: NANDO Clarke MD Not Available [facility] [address], [address], 03/23/2023 22:33:21 03/21/2003/23/2023 TISSU E PATHO LOGY A diagnosis Fragm ents of prede cidua lized and/o r decid ualiz ed benig n endom etriu m (foca lly necro tic) with blood . Not Available [address], [address], 03/23/2023 22:33:21 03/21/2003/23/2023 TISSU E PATHO LOGY A comment Exoge nous hormo nal effec t canno t be ruled out. Pleas e corre late and follo w clini liz . Not Available [address], [address], 03/23/2023 22:33:21 03/21/2003/24/2023 THINP REP TIS PAP clinical information: normal None given Not Available [address], [address], 03/24/2023 13:36:53 03/21/2003/24/2023 THINP REP TIS PAP LMP: normal None given Not Available [address], [address], 03/24/2023 13:36:53 03/21/2003/24/2023 THINP REP TIS PAP prev. Pap: normal None given Not Available [facility] [address] [place], [address], 03/24/2023 13:36:53 03/21/2003/24/2023 THINP REP TIS PAP prev. BX: normal None given Not Available [address], [address], 03/24/2023 13:36:53 03/21/2003/24/2023 THINP REP TIS PAP source: normal Cervi x Not Available [address], [address], 03/24/2023 13:36:53 03/21/2003/24/2023 THINP REP TIS PAP statement of adequacy: normal Satis facto ry for evalu ation . Endoc ervic al/tr ansfo rmati on zone compo nent prese nt. Age and/o r menst rual statu s not provi ded Not Available [address], [address], 03/24/2023 13:36:53 03/21/2003/24/2023 THINP REP TIS PAP interpretati on/result: normal Cytol ogy Resul ts: Negat saroj for intra epith elial lesio n or malig shante . Not Available [address], [address], 03/24/2023 13:36:53 03/21/2003/24/2023 THINP REP TIS PAP comment: normal This Pap test has been evalu ated with compu ter irvin pancho techn ology . Not Available [address], [address], 03/24/2023 13:36:53 03/21/2003/24/2023 THINP REP TIS PAP cytotechnolo gist: normal PCM, CT( CP) CT Scree wilbert Locat ion: [place] [address] [place] [address] [facility] [address], [place], [address], 03/24/2023 13:36:53 03/21/2003/24/2023 THINP REP TIS PAP [...] clini sissy infor matio n. Not Available [facility] [address] [address], [place], [address], 03/24/2023 13:36:53 03/21/2003/21/2023 US, trans vagin al No observ ation record ed. [email or web address] [facility] [address], [place], [address], 03/21/2023 14:17:19 Result Notes None recorded. Problems Name Problem SNOMED Code Status Onset Date Resolution Date Notes Provider Name and Address Organization Details Recorded Time Abnormal uterine bleeding 79089794494 100 Completed 202004/25/2023 Other specifie d abnormal uterine and vaginal bleeding ; Progress : Stable Added By: Dalia Amin Add to Current Problems : YES ProblemS tatus: Current Anila Britsch null, [facility] IV 3 05:14:45 Human papillom avirus deoxyrib onucleic acid detected , high risk on cervical specimen 926064238 Active 2020 Cervical high risk human papillom avirus (HPV) DNA test positive ; Progress : Stable Added By: Dalia Amin Add to Current Problems : YES ProblemS tatus: Current Anila Britsch null, [place] [facility] IV 3 05:14:53 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 Other specifie d noninfla mmatory [...] Finding of pattern of menstrua l cycle 085880735 Completed 202004/25/2023 Excessiv e and frequent menstrua tion with irregula r cycle; Progress : Stable Added By: Jam Campa Add to Current Problems : YES ProblemS tatus: Current Anila Britsch null, [place] [facility] 3 05:14:37 Dysuria 73271378 Completed 201904/25/2023 Dysuria; Progress : Stable Added [...] 3 Endometrial Biopsy completed OMAR GORDON DO [facility] [place], [address], [employer] [facility] IV 03/21/2023 11:39:54 3 Date of Last Pap Smear completed OMAR GORDON DO [address] [place], [address], [place] [facility] [employer] IV 03/31/2023 17:38:08 ligation of bilateral fallopian tubes completed [facility] IV 02/09/2023 10:19:54 Bx of cervix w/scope leep completed [facility] IV 02/09/2023 10:20:03 Imaging Results Imaging Date Name Status LastModified by Organization Details LastModified Time 03/21/2023 US, transvaginal completed [email or web address] [address] [address], [place], [address], 03/21/2023 14:17:19 Procedure Notes None recorded. Medical Equipment None Reported. Allergies Allergen ID Allergen Name Allergen Category Reaction Reaction Severity Criticality Documentation Date Start Date Code Code System Note Provider Name and Address Organization Details Recorded Time [id number] 242394398 4963398h2 2824e egg extract food,medi cation Not available Not available Not available 03/27/20212019 58934 15 RxNorm Sever ity: Moder ate; Not Available Not Available Not Available [id number] 836535536 7223374i8 2824e Product containin g penicilli n and antibioti c (product) medicatio n Not available Not available Not available 03/27/20212019 17643 05 SNOMED Sever ity: Moder ate; Not Available Not Available Not Available [id number] 022644134 1743903s1 2824e Substance with sulfonami de structure and antibacte rial mechanism of action (substanc e) medicatio n Not available Not available Not available 03/27/20212019 36126 8003 SNOMED Sever ity: Moder ate; Not [...] clopidog reL 75 mg oral tablet RxNorm: 443776 Refill Denied: No Refill DateOccu rred: 02/01/20 [...] oral capsule, delayed release (enteric coated) RxNorm: 501555 Allow Substitu tion: False Refill Denied: No [...] t Available Decadron 07/28 completed Decadron RxNorm: 737195 Allow Substitu tion: False Refill Denied: No [...] Advair HFA 01/31 completed Advair HFA RxNorm: 724346 Allow Substitu tion: False Refill Denied: No [...] Address Organization Details Last Updated DateTime 02/09/2023 208045.62 g [facility] [facility] IV 02/09/2023 10:06:08 Date Recorded Body temperature Provider Name a nd Address Organization Details Last Updated DateTime 02/09/2023 97.6 [degF] [facility]ang [employer] [facility] IV 02/09/2023 10:06:12 Date Recorded Body mass index (BMI) Body height Provider Name and Address Organization Details Last Updated DateTime 02/09/2023 35.6 kg/m2 170.18 cm Trang Funes [employer] IV 02/09/2023 10:06:39 Date Recorded Body height Provider Name an d Address Organization Details Last Updated DateTime 03/21/2023 170.18 cm Merced Colon [facility] [employer] [facility] IV 03/21/2023 10:45:57 Date Recorded Body temperature Provider Name a nd Address Organization Details Last Updated DateTime 03/21/2023 98 [degF] Merced Colon [place] [employer] IV 03/21/2023 10:46:04 Date Recorded Body mass index (BMI) Body weight Provider Name and Address Organization Details Last Updated DateTime 03/21/2023 35.4 kg/m2 592455.16 g Merced Isaiah [facility] IV 03/21/2023 10:56:00 Date Recorded Body height Provider Name an d Address Organization Details Last Updated DateTime 04/25/2023 170.18 cm Bo Bridges [facility] IV 04/25/2023 12:19:46 Date Recorded Systolic blood pressure Diastolic blood pressure Provider Name and Address Organization Details Last Updated DateTime 02/09/2023 138 mm[Hg] 90 mm[Hg] Trang Funes [facility] IV 02/09/2023 10:08:27 Date Recorded Systolic blood pressure Diastolic blood pressure Provider Name and Address Organization Details Last Updated DateTime 03/21/2023 124 mm[Hg] 72 mm[Hg] Merced Colon [facility] IV 03/21/2023 10:55:54 Social History Question Answer Notes LastModified by Organizat ion Details LastModified Time Tobacco Smoking Status Current Every Day Smoker Trang Funes [facility] IV 02/09/2023 10:19:22 What Is Your Level Of Alcohol Consumption? None [email or web address] Information not available 02/09/2023 Are You Blind Or Do You Have Difficulty Seeing? No [email or web address] Information not available 02/09/2023 Are You Currently Employed? No [email or web address] Information not available 02/09/2023 Are You Deaf Or Do You Have Serious Difficulty Hearing? No [email or web address] Information not available 02/09/2023 What Type Of Diet Are You Following? REGULAR [email or web address] Information not available 02/09/2023 Which Illicit Or Recreational Drugs Have You Used? [place] [email or web address] Information not available 02/09/2023 Do You Or Have You Ever Used E-cigarettes Or Vape? Current User Of Electronic Cigarettes [email or web address] Information not available 02/09/2023 What Is The Highest Grade Or Level Of School You Have Completed Or The Highest Degree You Have Received? NM69584-1 [email or web address] Information not available 02/09/2023 How Many Children Do You Have? 3 Information not available 02/09/2023 What Is Your Relationship Status? [email or web address] Information not available 02/09/2023 Are You Sexually Active? Yes [email or web address] Information not available 02/09/2023 At What Age Did You Start Smoking Tobacco? 12 [email or web address] Information not available 02/09/2023 Do You Or Have You Ever Used Smokeless Tobacco? [id number] [email or web address] Information not available 02/09/2023 How Much Tobacco Do You Smoke? 1 PPD [email or web address] Information not available 02/09/2023 Do You Use Any Illicit Or Recreational Drugs? Yes [email or web address] Information not available 02/09/2023 How Many Years Have You Smoked Tobacco? 30 [email or web address] Information not available 02/09/2023 Have You Used IV Drugs? No [email or web address] Information not available 02/09/2023 Do You Or Have You Ever Used Any Other Forms Of Tobacco Or Nicotine? Yes [email or web address] Information not available 02/09/2023 Sex: Female Functional Status Question Answer Note LastModified by Organizat ion Details LastModified Time What is your exercise level? Occasional [email or web address] Information not available 02/09/2023 Mental Status None recorded. Family History Relationship Description Onset Age of this Age Resolved Age Notes LastModified by Organization Details LastModified Time Father Malignant tumor of lung [email or web address] Not available 2022 10:15:51 Mother Malignant tumor of gallbladder Not available 11/2022 10:16:11 Mother Disease of liver [email or web address] Not available 2022 10:16:53 Medical History Condition [...] SNOMED-CT Code Diagnosis ICD10 Code Diagnosis Note [id number] OMAR GORDON DO [facility] [address] [facility], [place] [address] 02/09/2023 09:59:38 02/09/2023 12:52:59 Abnormal uterine bleeding 8964458798 9100 N93.9 52 yo with AUBcomplic ated by CAD s/p stents (x3) in 2019Tobacc o user (4 packs/week and vaping)shaggy g h/o AUB and abnormal paps RTO for US and embx and pap, currently bleeding and unable to do pap [id number] OMAR GORDON, DO [facility] [address] [place] [address] 03/21/2023 09:43:11 03/21/2023 15:08:52 Abnormal uterine bleeding 6774681728 9100 N93.9 52 yo with AUBcomplic ated by CAD s/p stents (x3) in 2019Tobacc o user (4 packs/week and vaping)shaggy g h/o AUB and abnormal paps US: uterus wnl, 0.9 cm endometria l thickness. b/l ovaries wnlembx completed today along with FSH/Estrad iol to ascertain if AUB or PMB Screening for malignant neoplasm of cervix 541535893 Z12.4 history of LEEP for RONEY 2 [id number] OMAR GORDON DO [facility] [address] [place] [address] 04/25/2023 11:31:33 04/25/2023 16:51:47 Abnormal uterine bleeding 7720028603 9100 N93.9 52 yo with AUBcomplic ated [...] IUD Screening for malignant neoplasm of breast 996271748 Z12.39 needs mammogram before ever refilling prometrium Health Concerns Section Related Observation LastModified by Organization Detai ls LastModified Time None Recorded Concern Status LastModified by Organization Details LastModified Time None Recorded Advance Directives Directive None Recorded Payers Encounter Date Sequence Insurance Name Policy Number Policy Garzon Covered Member ID Garzon Member ID Guarantor Name 02/09/2023 1 [facility] [id number] Padmini Dierking [id number] Macrina Dierking 03/21/2023 1 [facility] [id number] Padmini Dierking [id number] Macrina Dierking 04/25/2023 1 [facility] [id number] Padmini Dierking [id number] Macrina Dierking Notes Date Note Type Note [...] vulva bleeding with intercourse OMAR GORDON DO [address] [place] [address], [address], [facility] [employer] IV 02/09/2023 11:12:09 03/21/2023 text/html Macrina is here because she is having bleeding between periods. Her period is irregular. She haven't have a period since november 2022. stabbing feeling in her side. since 2018 bleeding every other month with heavy bleeding for 2-3 weeksh/o precancerous cervix w/ LEEPh/o HPV biopsy of vulva bleeding with intercourse. OMAR GORDON DO [address] [place] [address], [address], [employer] IV 03/21/2023 11:40:39 04/25/2023 text/html Macrina is here because she is having bleeding between periods. Her period is irregular. She haven't have a period since november 2022. stabbing feeling in her side. since 2018 bleeding every other month with heavy bleeding for 2-3 weeksh/o precancerous cervix w/ LEEPh/o HPV biopsy of vulva bleeding with intercourse. OMAR GORDON DO [facility] [place], [address], [facility] [employer] IV 04/25/2023 12:52:18 OBGyn Episode No OBEpisode recorded.
[2024-07-05 01:43] VITALS: BP 153/79; PULSE 68; RESP 17; TEMP 36.9; O2SAT 99
--- OUTSIDE RECORDS SUMMARY | 2024-07-05 03:14 | XMS_ITS | Clinical Summary ---
Author Organization [facility] Address [address] [place] [address] Phone Care Team Providers Care Tool Profiling Machine Set Up Operator Name Role Phone Aditya Mensah Susu PARNELL Primary Care Provider [phone] Brian Rangel DO Unavailable [phone] Chris Doll DO Unavailable [phone] Allergies Active Allergy Reactions Criticality Noted [...] [employer] Care Teams Tool Profiling Machine Set Up Operator Relationship Specialty Start Date End Date Aditya Mensah PAC [address] [place] [address] PCP - General Physician Safety And Security Officer 04/26/18 Brian Rangel DO [address] [place] [phone] Consulting Physician Oncology 08/14/20 Chris Doll DO [address] [place] [address] Obstetrics & Gynecology 08/14/20
--- OUTSIDE RECORDS SUMMARY | 2024-07-05 03:14 | XMS_ITS | Encounter Summary ---
Author Organization [facility] Address [address] [place] [address] Phone Care Team Providers Care Grocery Store Associate Name Role Phone MakennaAditya Primary Care Provider Brian Rangel DO Unavailable [phone] Chris Doll DO Unavailable [phone] Encounter Details Date Type Department Care Team (Late st Contact Info) Description 11/04/2020 Telephone [facility] [address] [place] [address] Brian Rangel, DO [address] [place] [address] Social History Tobacco Use Types [...] documented as of this encounter Care Teams Grocery Store Associate Relationship Specialty Start Date End Date Aditya Mensah, PARMJIT [address] [place] [address] PCP - General Physician Rewind Operator 04/26/18 Brian Rangel DO [address] [place] [phone] Consulting Physician Oncology 08/14/[address] [facility] [address] Obstetrics & Gynecology 08/14/20 documented as of this encounter
--- OUTSIDE RECORDS SUMMARY | 2024-07-05 03:14 | XMS_ITS | Patient Health Summary ---
Author Organization [facility] Address [address] [facility] [place] [address] Care Team Providers Care Imitation Marble Mechanic Name Role Phone Unavailable Primary Care Provider Unavailabl e Note from [facility],non-owned Affiliates and Associated Physician Practices is amultiple site organization consisting of ambulatory clinics and hospital sitesin [place], [place], [place] and [place]. This disclosure is being madepursuant to the Care Everywhere program and may not contain all information available regarding this patient. Last updated 18.[facility] Social History Tobacco Use Types Packs/Day Years [...] participate in the care of your patient. [facility] Breast Care utilizes [employer] as a reminder system to notify patients [...] participate in the care of your patient. [facility] Breast [facility] utilizes [employer] as a reminder system to notify patients [...] participate in the care of your patient. [facility] Care utilizes [employer] as a reminder system to notify patients of their next recommended mammogram. I, Rhonda Webster, have personally reviewed the images and I agree with this report. Ginette Bro MD MAMMO ORDERABLES
--- OUTSIDE RECORDS SUMMARY | 2024-07-05 03:14 | XMS_ITS | Clinical Summary ---
Author Organization [facility] Address [address] [place] [address]. [place] [address] [place] [address] Care Team Providers Care Account Liaison Hospice Name Role Phone None, Provider MD Primary [...] pain 02/21/2020 Coronary artery disease invo lving [place] coronary artery of [place] heart without angina pectoris 09/26/2019 Mixed hyperlipidemia [...] Department Care Team Description 06/27/2024 8:00 PM COMMUNITY LIFE DIRECTOR - 06/27/2024 10:55 PM COMMUNITY LIFE DIRECTOR Emergency [facility] [place] [address] Sandy, Sandie, DO Neck Pain; Shoulder Pain Discharge Disposition: Left Against Medical Advice 06/27/2024 Travel 05/11/2024 Telephone [facility], [address] [address] Angelica Santana, CORK INSULATION INSTALLER Results 05/07/2024 4:43 PM COMMUNITY LIFE DIRECTOR - 05/07/2024 6:44 PM COMMUNITY LIFE DIRECTOR Emergency [facility] [place] [address] Brayan Jewell MD Abdominal Pain Discharge Disposition: Home or Self Care (Routine Discharge) 05/07/2024 Travel 04/11/2024 10:45 AM COMMUNITY LIFE DIRECTOR Office [facility], [address] [address] Jaciel Palmer MD Coronary Artery Disease (Follow up); Lipids; Hypertension 04/11/2024 Travel 04/06/2024 1:00 PM CDT [facility], [address] [address] Jaciel Palmer MD Holter Monitor 04/06/2024 8:26 AM CDT - 04/06/2024 11:59 PM CDT Hospital Encounter [facility] [place] [address] Jaciel Palmer MD Discharge Disposition: Home or [...] drink = 0.6 oz pur e alcohol) [facility] Utilities Answer Date Recorded In the [...] place to sleep or slept in a long-term (including now)? No 06/10/2023 Comments No Sex and Gender Information Value Date Recorded Sex Assigned at Female 06/27/2024 6:08 PM COMMUNITY LIFE DIRECTOR Legal Sex Female 11:31 AM CDT Gender Identity Not on file Sexual Orientation Not on file Last Filed Vital Signs Vital Sign Reading Time Taken Comments Blood Pressure 152/83 06/27/2024 5:24 PM COMMUNITY LIFE DIRECTOR Pulse 68 06/27/2024 5:24 PM COMMUNITY LIFE DIRECTOR Temperature 36.7 ??C (98.1 ??F) 06/27/2024 5:24 PM CS T Respiratory Rate 20 06/27/2024 5:24 PM COMMUNITY LIFE DIRECTOR Oxygen Saturation 100% 06/27/2024 5:24 PM COMMUNITY LIFE DIRECTOR Inhaled Oxygen Concentration - - Weight 105.7 kg (233 lb 0.4 oz) 06/27/2024 5:24 PM COMMUNITY LIFE DIRECTOR Height 170.2 cm (5' 7 ) 06/27/2024 5:24 PM COMMUNITY LIFE DIRECTOR Body Mass Index 36.5 06/27/2024 5:24 PM COMMUNITY LIFE DIRECTOR Plan of Treatment Upcoming Encounters Date Type Department Care Team (Late st Contact Info) Description 10/10/2024 11:00 AM CDT Office Visit [facility], [address] [phone] Jaciel Palmer MD [facility]. [address] [phone] Health Maintenance Due Date Last Done Comments [...] discharge from hospital Lifestyle No Ladan Momin, chemical tester Procedure Name Priority Date/Time Associated Diagnosis Comments XR CHEST PA OR AP 1V STAT 06/27/2024 6:26 PM COMMUNITY LIFE DIRECTOR XR SHOULDER LT 3V STAT 06/27/2024 6:2 6 PM COMMUNITY LIFE DIRECTOR TROPONIN, QUANT STAT 06/27/2024 6:02 PM COMMUNITY LIFE DIRECTOR COMPREHENSIVE METABOLIC PANEL STAT 06/27/2024 6:02 PM COMMUNITY LIFE DIRECTOR CBC W/DIFF AUTOMATED STAT 06/27/2024 6:02 PM COMMUNITY LIFE DIRECTOR ECG 12-LEAD Routine 06/27/2024 5:56 PM COMMUNITY LIFE DIRECTOR HC URINALYSIS AUTO W/O MICRO STAT 05/07/2024 5:43 PM COMMUNITY LIFE DIRECTOR LIPASE STAT 05/07/2024 5:43 PM COMMUNITY LIFE DIRECTOR D-DIMER, QUANTITATIVE STAT 05/07/2024 5:43 PM COMMUNITY LIFE DIRECTOR TROPONIN, QUANT STAT 05/07/2024 5:43 PM COMMUNITY LIFE DIRECTOR COMPREHENSIVE METABOLIC PANEL STAT 05/07/2024 5:43 PM COMMUNITY LIFE DIRECTOR CBC W/DIFF AUTOMATED STAT 05/07/2024 5:43 PM COMMUNITY LIFE DIRECTOR XR CHEST PORTABLE STAT 05/07/2024 5:2 1 PM COMMUNITY LIFE DIRECTOR ECG 12-LEAD STAT 05/07/2024 5:01 PM COMMUNITY LIFE DIRECTOR EVENT RECORDER (ECG) UP TO 30 DAYS COMPLETE Routine 04/25/2024 7:47 AM COMMUNITY LIFE DIRECTOR Palpitations USE ECHOCARDIOGRAM Routine 04/06/2024 9: 14 AM CDT Chest pain, unspecified type LIPID PANEL Routine 04/06/2023 12:06 PM CDT Coronary artery disease involving [place] vie[place] coronary artery of [place] vie[place] heart without angina pectoris from Last 3 Months or Most Recently Relevant to Health Maintenance Results * XR CHEST PA OR AP 1V (06/27/2024 6:26 PM COMMUNITY LIFE DIRECTOR) Anatomical Region Laterality Modality Chest Radiographic Inez ging 06/27/2024 6:58 PM COMMUNITY LIFE DIRECTOR Impressions 06/27/2024 7:00 PM COMMUNITY LIFE DIRECTOR Impression: No acute findings. Referred By: ?? Interpreted By: Gaurav Maya MD, 06/27/2024 6:58 PM Narrative 06/27/2024 7:00 PM COMMUNITY LIFE DIRECTOR [address] [address] Examination: Chest 1 view portable History: Shoulder pain DATE/TIME: 06/27/2024 6:12 PM Comparison: May 07, 2024 Technique: AP portable view of the chest was obtained. Findings: Heart size, mediastinal contours and pulmonary vasculature are within normal limits. ??No pulmonary consolidation, pleural effusion or pneumothorax. ??No acute osseous abnormality. Procedure Note Gaurav Maya MD - 06/27/[address] [address] Examination: Chest 1 view portable History: Shoulder pain DATE/TIME: 06/27/2024 6:12 PM Comparison: May 07, 2024 Technique: AP portable view of the chest was obtained. Findings: Heart size, mediastinal contours and pulmonary vasculature arewithin normal limits. No pulmonary consolidation, pleural effusion orpneumothorax. No acute osseous abnormality. Impression: No acute findings. Referred By: Interpreted By: Gaurav Maya MD, 06/27/2024 6:58 PM Michelle Jay CORK INSULATION INSTALLER GENERAL IMAGING Final Resul t * XR SHOULDER LT 3V (06/27/2024 6:26 PM COMMUNITY LIFE DIRECTOR) Anatomical Region Laterality Modality Shoulder Radiographic Inez ging 06/27/2024 7:00 PM COMMUNITY LIFE DIRECTOR Impressions 06/27/2024 7:02 PM COMMUNITY LIFE DIRECTOR IMPRESSION: No acute findings. Referred By: ?? Interpreted By: Gaurav Maya MD, 06/27/2024 7:00 PM Narrative 06/27/2024 7:02 PM COMMUNITY LIFE DIRECTOR [address] [address] EXAMINATION: XR SHOULDER LT 3V HISTORY: Pain after injury DATE: 06/27/2024 6:12 PM COMPARISON: None TECHNIQUE: AP, Grashey and scapular Y views of the left shoulder. ??3 images. FINDINGS: No acute fracture identified. ??No dislocation. ??Joint spaces are unremarkable. ??No destructive bone lesion. Procedure Note Gaurav Maya MD - 06/27/[address] [address] EXAMINATION: XR SHOULDER LT 3V HISTORY: Pain after injury DATE: 06/27/2024 6:12 PM COMPARISON: None TECHNIQUE: AP, Grashey and scapular Y views of the left shoulder. 3images. FINDINGS: No acute fracture identified. No dislocation. Joint spaces areunremarkable. No destructive bone lesion. IMPRESSION: No acute findings. Referred By: Interpreted By: Gaurav Maya MD, 06/27/2024 7:00 PM Michelle Jay CORK INSULATION INSTALLER GENERAL IMAGING Final Resul t * (ABNORMAL) COMPREHENSIVE METABOLIC PANEL (06/27/2024 6:02 PM COMMUNITY LIFE DIRECTOR) Only the most recent of2 resultswithin the time period is included. GLUCOSE 105(H) 70 - 99 MG/DL 06/27/2024 6:46 PM [facility] BUN 8 7 - 18 MG/DL 06/27/2024 6:46 PM [facility] CREATININE S/P/B 0.86 0.55 - 1.02 MG/DL 06/27/2024 6:46 PM [facility] SODIUM S/P/B 136 136 - 145 MMOL/L 06/27/2024 6:46 PM [facility] POTASSIUM S/P/B 4.0 3.5 - 5.1 MMOL/L 06/27/2024 6:46 PM [facility] Comment:SLIGHT HEMOLYSIS, RE SULT MAY BE AFFECTED. CHLORIDE S/P/B 106 97 - 115 MMOL/L 06/27/2024 6:46 PM [facility] CO2 25.1 21 - 32 MMOL/L 06/27/2024 6:46 PM [facility] CALCIUM S/P/B 9.3 8.5 - 10.1 MG/DL 06/27/2024 6:46 PM [facility] BILIRUBIN TOTAL S/P/B 0.5 0.2 - 1.2 MG/DL 06/27/2024 6:46 PM [facility] Comment: THIS ASSAY IS NOT RECOMMENDED FOR PATIENTS UNDERGOING TREATMENT WITH ELTROMBOPAG DUE TO THE POTENTIAL FOR FALSELY ELEVATED RESULTS. TOTAL PROTEIN S/P/B 8.0 6.4 - 8.2 G/DL 06/27/2024 6:46 PM [facility] ALBUMIN S/P/B 3.5 3.4 - 5.0 G/DL 06/27/2024 6:46 PM [facility] AST 21 15 - 37 U/L 06/27/2024 6:46 PM [facility] Comment:SLIGHT HEMOLYSIS, RE SULT MAY BE AFFECTED. ALT 23 14 - 55 U/L 06/27/2024 6:46 PM [facility] ALKALINE PHOSPHATASE S/P/B 133 50 - 136 U/L 06/27/2024 6:46 PM [facility] ANION GAP 4.9 2 - 10 MMOL/L 06/27/2024 6:46 PM [facility] BUN CREATININE RATIO 9.2 6 - 26 06/27/2024 6:46 PM [facility] A/G RATIO 0.8(L) 1.0 - 2.0 RATIO 06/27/2024 6:46 PM [facility] GFR ESTIMATE 81(L) >90 ML/MIN/1.7 3 M2 06/27/2024 6:46 PM [facility] Comment: NOTE: eGFR is not calculated for patients <18 years of age or gender unknown. This is an estimated GFR calculation using the new CKD EPI creatinine equation without race and so does not require a correction factor for race. This estimated GFR should not be used for calculating drug doses. 06/27/2024 6:02 PM COMMUNITY LIFE DIRECTOR Michelle Jay CORK INSULATION INSTALLER LABORATORY Final Resul t [facility] [address] [place] [address], [place] [phone] * (ABNORMAL) CBC W/DIFF AUTOMATED (06/27/2024 6:02 PM COMMUNITY LIFE DIRECTOR) Only the most recent of2 resultswithin the time period is included. WBC 7.85 4.5 - 11.0 x10'3/uL 06/27/2024 6:37 PM COMMUNITY LIFE DIRECTOR [facility] RBC 4.84 4.20 - 5.40 x10'6/uL 06/27/2024 6:37 PM [facility] HGB 14.4 12.0 - 16.0 G/DL 06/27/2024 6:37 PM [facility] HCT 43.3 38.0 - 48.0 % 06/27/2024 6:37 PM [facility] MCV 89.5 81.0 - 99.0 FL 06/27/2024 6:37 PM COMMUNITY LIFE DIRECTOR [facility] MCH 29.8 27.0 - 31.0 PG 06/27/2024 6:37 PM COMMUNITY LIFE DIRECTOR [facility] MCHC 33.3 32.0 - 36.0 G/DL 06/27/2024 6:37 PM [facility] RDW 14.6(H) 11.5 - 14.5 % 06/27/2024 6:37 PM [facility] PLT 208 130 - 400 x10'3/uL 06/27/2024 6:37 PM COMMUNITY LIFE DIRECTOR [facility] MPV 11.7 9.3 - 12.2 FL 06/27/2024 6:37 PM COMMUNITY LIFE DIRECTOR [facility] DIFFERENTIAL TYPE MANUAL DIFFERENTIAL 06/27/2024 6:38 PM COMMUNITY LIFE DIRECTOR [facility] SEG NEUTROPHILS 65 % 6:38 PM COMMUNITY LIFE DIRECTOR [facility] LYMPHOCYTES 22 % 06/27/2024 6:38 PM COMMUNITY LIFE DIRECTOR [facility] MONOCYTES 10 % 06/27/2024 6:38 PM COMMUNITY LIFE DIRECTOR [facility] EOSINOPHILS 3 % 06/27/2024 6:38 PM COMMUNITY LIFE DIRECTOR [facility] ABS. NEUTROPHILS 5.10 1.80 - 7.70 x10'3/uL 06/27/2024 6:38 PM COMMUNITY LIFE DIRECTOR [facility] ABS. LYMPHOCYTES 1.73 1.00 - 4.80 x10'3/uL 06/27/2024 6:38 PM COMMUNITY LIFE DIRECTOR [facility] ABS. MONOCYTES 0.79 0.24 - 0.86 x10'3/uL 06/27/2024 6:38 PM COMMUNITY LIFE DIRECTOR [facility] ABS. EOSINOPHILS 0.24 0.04 - 0.36 x10'3/uL 06/27/2024 6:38 PM [facility] RBC MORPHOLOGY RBC MORPHOLOGY APPEARS NORMAL. SLIDE REVIEWED. 06/27/2024 6:38 PM COMMUNITY LIFE DIRECTOR [facility] PLT EST. ADEQUATE 06/27/2024 6:38 PM [facility] 06/27/2024 6:02 PM COMMUNITY LIFE DIRECTOR us Michelle Jay CORK INSULATION INSTALLER LABORATORY Final Resul t [facility] [address] [place] [address], * TROPONIN, QUANT (06/27/2024 6:02 PM COMMUNITY LIFE DIRECTOR) Only the most recent of2 resultswithin the time period is included. TROPONIN I HIGH SENSITIVITY 4 <54 ng/L 06/27/2024 6:46 PM COMMUNITY LIFE DIRECTOR [facility] Comment: HIGH DOSES OF BIOTIN, TROPONIN-SPECIFIC AUTOANTIBODIES, AND ANTIBODY THERAPY CONTAINING HAMA MAY INTERFERE WITH THIS TEST RESULT. CORRELATION TO CLINICAL HISTORY AND PRESENTATION RECOMMENDED. 06/27/2024 6:02 PM COMMUNITY LIFE DIRECTOR Michelle Jay CORK INSULATION INSTALLER LABORATORY Final Resul t [address] [address], * ECG 12 lead (06/27/2024 5:56 PM COMMUNITY LIFE DIRECTOR) Only the most recent of2 resultswithin the time period is included. 06/27/2024 5:56 PM COMMUNITY LIFE DIRECTOR Narrative [facility] - 06/27/2024 11:29 PM COMMUNITY LIFE DIRECTOR ?Edson`tricia Sepncer ? [address] [facility] ED ? Test Date: ?2024-06-27 Pat Name: ? CASS TORRES ? Department: ?? 41 ? Room: ? INPR Gender: ? Female ? Doorperson: ?? Em : ?1970 ? Requested By: MICHELLE JAY Order Number: [id number] ? Reading MD: ?? Jose Luis Hernández ? Measurements Intervals ?[place] ? Rate: ? 61 ? P: ?35 NE: ? 159 ?QRS: ?39 QRSD: ? 98 [...] STEMI Preliminary EKG Interpretation by BRIDGETT Stoddard UNITY LIFE DIRECTOR Procedure Note Jose Luis Hernández MD - 06/27/[address] Test Date: 2024-06-27 Pat Name: CASS TORRES Department: 41 Room: INNE Gender: Female Doorperson: Alejandrina : 1970 Requested By: MICHELLE JAY Order Number: [id number] Reading MD: Jose Luis Hernández Measurements Intervals [place] Rate: 61 P: 35 NE: 159 QRS: 39 QRSD: 98 T: 31 QT: 392 QTc: 396 Interpretive Statements SINUS RHYTHM POSSIBLE LEFT ATRIAL ENLARGEMENT [-0.1mV P WAVE IN V1/V2] MINIMAL ST DEPRESSION [0.025+ mV ST DEPRESSION] Compared to ECG 05/07/2024 17:01:26 ST (T wave) deviation now present Sinus bradycardia no longer present Other ischemic changes, not STEMI Preliminary EKG Interpretation by BRIDGETT Stoddard UNITY LIFE DIRECTOR us Michelle URIAS ECG ORDERABLES Final Resul t [facility] * (ABNORMAL) URINALYSIS (05/07/2024 5:43 PM COMMUNITY LIFE DIRECTOR) SPECIMEN TYPE URINE CLEAN CATCH 05/07/2024 5:48 PM COMMUNITY LIFE DIRECTOR [facility] COLOR (U) YELLOW 05/07/2024 6:17 PM COMMUNITY LIFE DIRECTOR [facility] TRANSPARENCY CLEAR 05/07/2024 6:17 PM COMMUNITY LIFE DIRECTOR [facility] SPECIFIC GRAVITY (U) 1.027 1.001 - 1.030 05/07/2024 6:17 PM COMMUNITY LIFE DIRECTOR [facility] U PH 5.5 5.0 - 9.0 05/07/2024 6:17 PM COMMUNITY LIFE DIRECTOR [facility] LEUKOCYTES (U) NEGATIVE NEGATIVE 05/07/2024 6:17 PM COMMUNITY LIFE DIRECTOR [facility] NITRITES NEGATIVE NEGATIVE 05/07/2024 6:17 PM [facility] PROTEIN RANDOM (U) 10 <30 MG/DL 05/07/2024 6:17 PM COMMUNITY LIFE DIRECTOR [facility] GLUCOSE (U) NORMAL NORMAL MG/DL 05/07/2024 6:17 PM [facility] KETONES MG/DL (U) NEGATIVE NEGATIVE MG/DL 05/07/2024 6:17 PM [facility] UROBILINOGEN 2.0(A) NORMAL MG/DL 05/07/2024 6:17 PM [facility] BILIRUBIN (U) NEGATIVE NEGATIVE MG/DL 05/07/2024 6:17 PM [facility] BLOOD (U) NEGATIVE NEGATIVE 05/07/2024 6:17 PM [facility] URINE SPECIMEN OBTAINED BY CLEAN CATCH PROCEDURE / Unknown 05/07/2024 5:43 PM COMMUNITY LIFE DIRECTOR us Olivia VILLEGAS URINE ORDERABLES Final Result [facility] [address] [place] [address], * (ABNORMAL) D-DIMER, QUANTITATIVE (05/07/2024 5:43 PM COMMUNITY LIFE DIRECTOR) D-DIMER 519(HH) 0 - 500 ng{FEU}/mL 05/07/2024 6:33 PM COMMUNITY LIFE DIRECTOR [facility] Comment: D-Dimer values less [...] PM to EMERGENCY ROOM (Catalino/MARÍA BONILLA) by [id number]. 05/07/2024 5:43 PM COMMUNITY LIFE DIRECTOR Olivia VILLEGAS LABORATORY Final Result Performing Organization Address City/[facility]/ZIP Co de Phone Number [facility] [address] [place] [address], [place] [phone] * LIPASE (05/07/2024 5:43 PM COMMUNITY LIFE DIRECTOR) LIPASE 20 13 - 75 UNITS/L 05/07/2024 6:17 PM COMMUNITY LIFE DIRECTOR [facility] 05/07/2024 5:43 PM COMMUNITY LIFE DIRECTOR Olivia VILLEGAS LABORAT[facility] Final Result Performing Organization Address City/[facility]/ZIP Co de Phone Number [facility] [address] [place] [address], [place] [phone] * XR CHEST PORTABLE (05/07/2024 5:21 PM COMMUNITY LIFE DIRECTOR) Anatomical Region Laterality Modality Chest Radiographic Inez ging 05/07/2024 5:57 PM COMMUNITY LIFE DIRECTOR Impressions 05/07/2024 5:59 PM COMMUNITY LIFE DIRECTOR IMPRESSION: No radiographic evidence of active chest disease. Ordered By: OLIVIA CRUZ Interpreted By: Jason Arango MD, 05/07/2024 5:57 PM Narrative 05/07/2024 5:59 PM COMMUNITY LIFE DIRECTOR [facility] [address] [place], [place] [address] Examination: XR CHEST PORTABLE Exam time: 05/07/2024 5:00 PM Indication: Chest pain Comparison: 12/16/2023 and 09/16/2023 Technique: Portable AP view the chest, one image. Findings: Mediastinal silhouette and pulmonary vasculature are within normal limits for technique. No pneumothorax, large pleural effusion, or focal consolidation. No acute osseous abnormality. Procedure Note Jason Arango MD - 05/07/[address] [address] Examination: XR CHEST PORTABLE Exam time: 05/07/2024 [...] Arango MD, 05/07/2024 5:57 PM us Olivia VILLEGAS GENERAL IMAGING Final Result * CLINIC - OUTPATIENT EVENT RECORDER (ECG) UP TO 30 DAYS COMPLETE (Holter) (04/25/2024 7:47 AM COMMUNITY LIFE DIRECTOR) Impressions [facility] - 04/25/2024 7:47 AM COMMUNITY LIFE DIRECTOR [facility] [address] [place], [place] ??[address] MOBILE CARDIAC SAUSAGE MEAT TRIMMER REPORT Patient Name: Cass Torres : 1970 Administration Physician Date: 04/09/2024 End Date: 04/15/2024 Performed At: ??[facility], [place], [place] Interpreting Grinder Set Up Operator Thread Tool: ?? Koffi Shaw MD PCP: Susana Parikh MD Ordering Provider: Jaciel Palmer MD INDICATION: Palpitations DURATION OF MONITORIN days NUMBER OF TRANSMISSIONS: 4 (3auto transmissions, 1 manual, 0 periodic) INTERPRETATION: A 7-day mobile cardiac monitoring and evaluation advisor analyzed. Interpretable data was 0 days, 8 [...] ??There were no significant arrhythmias observed. Interpreting Grinder Set Up Operator Thread Tool: ?? Dr. Koffi Shaw us Jaciel Palmer MD CV VASCULAR ORDERABLES Katrina l Result [facility] * USE ECHOCARDIOGRAM (04/06/2024 9:14 AM CDT) Anatomical Region Laterality Modality Cardiac Echocardiogram 04/06/2024 8:42 AM CDT Narrative 04/06/2024 11:41 AM CDT ?Echocardiography Report Pat.Name: ??CASS TORRES ? Pat.ID: ?[id number] ? St.Date: ?? 04/06/2024 ? Refer.MD: ??[id number], JACIEL PALMER Exam Time: 8:42:00 AM ? Study Type:ECHO WITH CARDIAC DOPPLER COMP Height: ?67 in ? Weight: ?221 lb ? BSA: ? 2.11 m2 ?Age: ??1970,53Y ? Sex: ? F ? BP: ?155/84 ? Sonogrphr: Ann Segura RDMS ?? Pat. Stat.:Outpatient ? CPT - 4: ?53363 ? Reason for Study:Chest pain ? Procedures: [...] ? Right and Left ??0.612 ? Major [place] ?78 mm ? Ventricular Septum ?? IVSd [...] 04/06/2024 Echocardiography Report Pat.Name: CASS TORRES Pat.ID: [id number] .Date: 04/06/2024 Refer.MD: [id number], JACIEL PALMER Exam Time: 8:42:00 AM Study Type:ECHO WITH CARDIAC DOPPLER COMP Height: 67 in Weight: 221 lb BSA: 2.11 m2 Age: 6 1970,53Y Sex: F BP: 155/84 Sonogrphr: Ann Segura [facility] Pat. Stat.:Outpatient CPT - 4: 00514 Reason for Study:Chest pain Procedures: 2D, M-mode, [...] 32 mm Right and Left 0.612 Major [place] 78 mm Ventricular Septum IVSd 1.3 cm [...] 107 <200 MG/DL 04/06/2023 12:58 PM CDT [facility] TRIGLYCERIDES 94 <150 MG/DL 04/06/2023 12:58 PM CDT [facility] HDL 24(L) >40.0 MG/DL 04/06/2023 12:58 PM CDT [facility] LDL (CALCULATED) 64 <100 MG/DL 04/06/20 12:58 PM CDT [facility] NON HDL CHOLESTEROL 83 <130 MG/DL 04/06 12:58 PM CDT [facility] CHOL/HDL RATIO 4.5 0.0 - 4.5 04/06/2023 12:58 PM CDT [facility] VLDL CALCULATION 19 5 - 55 MG/DL 04/06/2023 12:58 PM T [facility] LIPID INTERPRETATION 04/06/2023 12:58 PM CDT [facility] Comment: NIH CONCENSUS REPORT [...] 04/06/2023 12:0 6 PM CDT Angelica Santana CORK INSULATION INSTALLER LABORATORY Final Result Performing Organization Address City/State/[facility] Co de Phone Number [facility] [address] [place] [address], from Last 3 Months or Most Recently Relevant to Health Maintenance Advance Directives * Full Code (Latest Code Status on File) Date Activated Date Inactivated Comments 06/10/2023 1:20 AM 06/13/2023 3:36 PM * Full Code Date Activated Date Inactivated Comments 02/21/2020 11:49 PM 02/22/2020 3:05 PM Care Teams Account Liaison Hospice Relationship Specialty Start Date End Date None, Provider, MD PCP - General UNKNOWN PHYSICIAN SPECIALTY 12/16/23
--- OUTSIDE RECORDS SUMMARY | 2024-07-05 03:15 | XMS_ITS | Clinical Summary ---
Author Organization [facility] Address [address] [place] [address] Care Team Providers Care Education Supervisor Name Role Phone Unavailable Primary Care Provider Unavailabl e Source Comments [facility],non-owned Affiliates and Associated Physician Practices is amultiple site organization consisting of ambulatory clinics and hospital sitesin [place], [place], [place] and [place]. This disclosure is being madepursuant to the Care Everywhere program and may not contain all information available regarding this patient. Last updated 18.[facility] Family History Medical History Relation Name Comments [...] [facility] Breast Care utilizes [facility] as a reminder system to notify patients of their next recommended mammogram. I, Rhonda [place], have personally reviewed the images and I agree with this report. Ginette Bro MD MAMMO ORDERABLES from Last 3 Months or Most Recently Relevant to Health Maintenance
--- OUTSIDE RECORDS SUMMARY | 2024-07-05 03:15 | XMS_ITS | Referral Summary ---
Author Organization [facility] Address [address] [place] [address] Care Team Providers Care Video Production Coordinator Name Role Phone Unavailable Primary Care Provider Unavailabl e Source Comments [facility],non-owned Affiliates and Associated Physician Practices is amultiple site organization consisting of ambulatory clinics and hospital sitesin [place], [place], [place] and [place]. This disclosure is being madepursuant to the Care Everywhere program and may not contain all information available regarding this patient. Last updated 18.[facility] Social History Tobacco Use Types Packs/Day Years [...] participate in the care of your patient. [facility] utilizes [employer] as a reminder system to notify patients of their next recommended mammogram. I, Rhonda Webster, have personally reviewed the images and I agree with this report. Ginette Bro MD MAMMO ORDERABLES from Last 3 Months or Most Recently Relevant to Health Maintenance
--- OUTSIDE RECORDS SUMMARY | 2024-07-05 03:15 | XMS_ITS | Clinical Summary ---
Author Organization [facility] Address [address] [place] [address] Care Team Providers Care Design Project Manager Name Role Phone Danyelle Cristobal MD Unavailable [phone] Antonio Moon DO Unavailable [phone] Aditya Mensah Primary Care Provider [phone] Mike Arias MD Unavailable [phone] Miscellaneous, Not In File Unavailable Unava ilable [...] w/ path IVON III. Path reviewed at [facility] and in agreement. 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 The diagnosis reviewed with patient Check 1 mg dexamethasone suppression test If condition stable then will be checked again in one year. Assessment & Plan (08/04/2020 10:23 AM BEHAVIORAL HEALTH TECH): Left adrenal adenoma detected in early 2017 [...] (12/26/2020): Added automatically from request for surgery [id number] Assessment & Plan (12/05/2019 10:38 AM CDT): Colonoscopy showed diverticulosis, one adenoma polyp, and internal hemorrhoids. There was no evidence of active diverticulitis. Pt says she continues to get this RLQ pain that starts with her menstrual period and stops once her cycle is over. No GI source of pain. Pt advised to see figurine maker as this is likely figurine maker origin given it only occurs during menstruation. [...] for about 14 years. Likely related to figurine maker issue but will do colonoscopy to rule out GI issues. Pt encouraged to make figurine maker appt. She says she has an appointment in January. Acute diverticulitis 10/22/2019 Overview (10/22/2019): Added automatically from request for surgery [id number] Assessment & Plan (10/22/2019 11:08 AM CDT): [...] nutrition consultation Coronary artery disease invo lving [place] coronary artery of [place] heart without angina pectoris 09/26/2019 Assessment & [...] atenolol Assessment & Plan (08/05/2021 10:26 AM BEHAVIORAL HEALTH TECH): Controlled with medication Complicated with CAD- had stent placed. ?? Plan: ?? Continue same medication and follow up with PCP and cardiology Assessment & Plan (08/04/2020 10:24 AM BEHAVIORAL HEALTH TECH): Controlled with medication Complicated with CAD- had [...] How often do you attend chur or adventist services? Never 05/24/2022 Do you belong to any clubs o r organizations such as quaker groups, unions, fraternal or athletic groups, or [...] place to sleep or slept in a alf (including now)? No 05/24/2022 Personal Safety Answer [...] on file Legal Sex Female 12:30 AM BEHAVIORAL HEALTH TECH Gender Identity Female 01/17/2020 4:14 PM CDT [...] Completed 08/15/2017 Medical Devices Implanted Type Area Agricultural Produce Packer Device Identifier Shelf Expiration Date Model / Serial / Lot [employer] Mino [id number] Synergy 2.5mm 12mm 144cm Radiopaque 1 Access Port Inflation Lumen - [id number] Implanted:Qty: 1 on 09/07/2018 by Sulaiman Lynch MD at [facility] Stent [employer] 11/23/2019 [id number] 250 / / [id number] [employer] [id number] System Coronary Stent Xience Isabel Everolimus L8 Mm Od3.5 Mm Rapid Exchange - [id number] Implanted:Qty: 1 on 09/07/2018 by Sulaiman Lynch MD at [facility] Stent [employer] 04/09/2019 [id number] / / [id number] [employer] [id number] Synergy 2.25mm 12mm 144cm Radiopaque 1 Access Port Inflation - [id number] Implanted:Qty: 1 on 09/07/2018 by Sulaiman Lynch MD at [facility] Stent [employer] M[employer] 04/17/2020 [id number] 220 / / [id number] Procedures Procedure Name Priority Date/Time Associated Diagnosis [...] best viewed via link to PDF [facility] [place] [address] CYTOPATHOLOGY REPORT FINAL Patient Name: ??CASS TORRES Gender: ??F : ??1970 (Age: 49) Address: ??[address] [place], [place] ??[address] Hospital #: ??[id number] Service: ??Oncology Location: ??[facility] Patient Type: ??[facility] Ancillary Taken: ??09/19/2020 Received: ??09/19/2020 Accessioned: [...] ??These HPV tests were performed at [facility] in [place], [place] utilizing the Gen-Probe Aptima assay. This specimen has been rescreened in accordance with this laboratory's Environmental Field Team Member Program. 10/03/2020 09:02 TAY Renner, CT(ASCP)[facility] Report Electronically Reviewed and Signed Out [...] The HPV test was performed by [facility], [address] [place] [address]. Report Images and scanned documents, if included only viewable in PDF version The performance characteristics of some immunohistochemical stains, in-situ hybridization and fluorescence in-situ hybridization tests and immunophenotyping by flow cytometry cited in this report (if any) were determined by the Surgical Pathology Department at [facility] as part of an ongoing supervisor type disk quality control program and in compliance with federally mandated [...] determined by the Surgical Pathology Department of [facility]. ??It has not been cleared or approved by the U. S. Food and Drug Administration. us Notinfile Unknown LAB CYTOLOGY ORDERABLES Final Result * COLONOSCOPY (11/28/2019 9:16 AM CDT) Anatomical Region Laterality Modality Other Narrative Procedure Note Danyelle Cristobal MD - 11/28/2019 9:16 AM CDT [facility] Patient Name: Cass Torres Procedure Date: [...] passed under direct vision.The Pediatric Colonoscope PCF-H190L [id number] was introduced through the anus and advanced [...] 9:16 AM Procedure Code(s): --- Professional --- 05737, Colonoscopy, flexible; with removal of tumor(s), polyp(s), or other lesion(s) by snare technique Diagnosis Code(s): --- Professional --- K64.8, Other hemorrhoids D12.5, Benign neoplasm of sigmoid colon R10.31, Right lower quadrant pain K57.30, Diverticulosis of large intestine without perforation orabscess without bleeding CPT copyright 2017 [employer]. All rights reserved. The codes documented in this report are preliminary and upon automotive service advisor reviewmay be revised to meet current compliance requirements. Recognized by the [place] for promoting quality in endoscopy Danyelle Cristobal MD ENDOSCOPY PROCEDURES Final Result * Screening Mammogram Bilateral W Gee (09/12/2017 11:29 AM CDT) Anatomical Region Laterality Modality Breast Bilateral Mammography Addenda Addendum by Thom Castillo MD on 09/19/2017 3:24 PM CDT ADDENDUM #1 Comparison to previous mammogram at [facility] in [facility] on 02/12/2016 shows a similar pattern of [...] tomosynthesis. COMPARISON: None available. ??Previous mammogram at [facility] in [place], [place]; not brought today for comparison. FINDINGS: [...] tomosynthesis. COMPARISON: None available. ??Previous mammogram at [facility] in [place], [place]; not brought today for comparison. FINDINGS: [...] [facility] ([facility]) Comment:Testing performed by : [facility], [address] [place] [address]., [address] Hep B core IgM Negative Negative [facility] ([facility]) Comment:Testing performed by : [facility], [address] [place] [address]., [address] Hep C Ab Negative Negative [facility] ([place]) Comment:Testing performed by : [facility], [address] [place] [address], [address] HepBsAg Negative Negative [facility] ([facility]) Comment:Testing performed by : [facility], [address] [place] [address], [address] Blood specimen (specimen) 08/15/2017 12:57 PM CDT 08/15/2017 7:02 PM CDT Narrative [facility] ([facility]) - 08/15/2017 8:46 PM CDT Kellie Maguire MD LAB MICROBIOLOGY - GENERAL OR DERABLES Final Result [facility] ([facility]) 1 [facility] Department [place] [address] from Last 3 Months or Most Recently Relevant to Health Maintenance Insurance [facility] Member Subscriber Plan / Payer ( fective 2021-Present) Name:Cass Torres Relation to Subscriber:Self Name:Cass Torres Payer ID:[id number] ([facility]) Type:MEDICAID RISK OTHER Address: [place] [address] [facility] Member Subscriber Plan / Payer ( fective 2021-Present) Name:Cass Torres Relation to Subscriber:Self Name:Cass Torres Payer ID:[id number] ([facility]) Type:MEDICAID RISK OTHER Address: [place] [address] Advance Directives For more information, please contact: [phone] * Full Code (Latest Code Status on [...] 8:33 AM 11/28/2019 8:33 AM Care Teams Design Project Manager Relationship Specialty Start Date End Date Aditya Mensah PA [address] [place] [address] PCP - General Family Practice 05/23/22 Danyelle Cristobal MD Consulting Physician Gastroenterology 08/16/17 Antonio Moon DO [address] [place] [address] DR ROBB [address] [place] [address] Cardiovascular Disease 09/07/18 Mike Arias MD [address] [place] [address] Resident Family Medicine 05/25/22 Miscellaneous, Not In File 08/26/22
--- OUTSIDE RECORDS SUMMARY | 2024-07-05 03:15 | XMS_ITS | Referral Summary ---
Author Organization [facility] Address [address] [place] [address] Care Team Providers Care Teacher Visually Impaired Name Role Phone Danyelle Cristobal MD Unavailable [phone] Antonio Moon DO Unavailable [phone] Aditya Mensah Primary Care Provider [phone] Mike Arias MD Unavailable [phone] Miscellaneous, Not In File Unavailable Unava ilable [...] w/ path IVON III. Path reviewed at [facility] and in agreement. 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 The diagnosis reviewed with patient Check 1 mg dexamethasone suppression test If condition stable then will be checked again in one year. Assessment & Plan (08/04/2020 10:23 AM TEACHER VISUALLY IMPAIRED): Left adrenal adenoma detected in early 2017 [...] (12/26/2020): Added automatically from request for surgery [id number] Assessment & Plan (12/05/2019 10:38 AM CDT): Colonoscopy showed diverticulosis, one adenoma polyp, and internal hemorrhoids. There was no evidence of active diverticulitis. Pt says she continues to get this RLQ pain that starts with her menstrual period and stops once her cycle is over. No GI source of pain. Pt advised to see care program resident as this is likely care program resident origin given it only occurs during menstruation. [...] for about 14 years. Likely related to care program resident issue but will do colonoscopy to rule out GI issues. Pt encouraged to make care program resident appt. She says she has an appointment in January. Acute diverticulitis 10/22/2019 Overview (10/22/2019): Added automatically from request for surgery [id number] Assessment & Plan (10/22/2019 11:08 AM CDT): [...] atenolol Assessment & Plan (08/05/2021 10:26 AM TEACHER VISUALLY IMPAIRED): Controlled with medication Complicated with CAD- had stent placed. ?? Plan: ?? Continue same medication and follow up with PCP and cardiology Assessment & Plan (08/04/2020 10:24 AM TEACHER VISUALLY IMPAIRED): Controlled with medication Complicated with CAD- had [...] often do you attend chur ch or shinto services? Never 05/24/2022 Do you belong to any clubs o r organizations such as latter day groups, unions, fraternal or athletic groups, or [...] place to sleep or slept in a usp (including now)? No 05/24/2022 Personal Safety Answer [...] on file Legal Sex Female 12:30 AM TEACHER VISUALLY IMPAIRED Gender Identity Female 01/17/2020 4:14 PM CDT [...] on file Medical Devices Implanted Type Area Administrative Services Coordinator Device Identifier Shelf Expiration Date Model / Serial / Lot [employer] Mino [id number] Synergy 2.5mm 12mm 144cm Radiopaque 1 Access Port Inflation Lumen - [id number] Implanted:Qty: 1 on 09/07/2018 by Sulaiman Lynch MD at [facility] Stent [employer] M[employer] 11/23/2019 [id number] 250 / / [id number] [employer] [id number] System Coronary Stent Xience Isabel Everolimus L8 Mm Od3.5 Mm Rapid Exchange - [id number] Implanted:Qty: 1 on 09/07/2018 by Sulaiman Lynch MD at [facility] Stent [employer] 04/09/2019 [id number] / / [id number] [employer]ino [id number] Synergy 2.25mm 12mm 144cm Radiopaque 1 Access Port Inflation - [id number] Implanted:Qty: 1 on 09/07/2018 by Sulaiman Lynch MD at [facility] Stent [employer] Mino 04/17/2020 [id number] 220 / / [id number] Procedures Procedure Name Priority Date/Time Associated Diagnosis [...] PM CDT Narrative 10/03/2020 9:02 AM CDT [facility] results best viewed via link to PDF [facility] [place] [address] CYTOPATHOLOGY REPORT FINAL Patient Name: ??CASS TORRES Gender: ??F : ??1970 (Age: 49) Address: [address] [place], [place] ??[address] Hospital #: ??[id number] Service: ??Oncology Location: ??[facility] Patient Type: ??[facility] Ancillary Taken: ??09/19/2020 Received: ??09/19/2020 Accessioned: [...] ??These HPV tests were performed at [facility] in [place], [place] utilizing the Gen-Probe Aptima assay. This specimen has been rescreened in accordance with this laboratory's Tax Collection Coordinator Program. 10/03/2020 09:02 TAY Renner, CT(ASCP)[facility] Report Electronically Reviewed and Signed [...] The HPV test was performed by [facility], [address] [place] [address]. Report Images and scanned documents, if included only viewable in PDF version The performance characteristics of some immunohistochemical stains, in-situ hybridization and fluorescence in-situ hybridization tests and immunophenotyping by flow cytometry cited in this report (if any) were determined by the Surgical Pathology Department at [facility] as part of an ongoing manufacturing quality engineer program and in compliance with federally [...] determined by the Surgical Pathology Department of [facility]. ??It has not been cleared or approved by the U. S. Food and Drug Administration. us Notinfile Unknown LAB CYTOLOGY ORDERABLES Final Result * COLONOSCOPY (11/28/2019 9:16 AM CDT) Anatomical Region Laterality Modality Other Narrative Procedure Note Danyelle Cristobal MD - 11/28/2019 9:16 AM CDT [facility] Patient Name: Cass Torres Procedure Date: 11/28/2019 9:16 AM Date of : 1970 Admit Type: Outpatient Age: 48 Gender: Female Attending MD: Danyelle Cristobal M.D. Room: [facility] ENDOSCOPY ROOM 1 Note Status: Finalized Patient [...] passed under direct vision.The Pediatric Colonoscope PCF-H190L [id number] was introduced through the anus and advanced [...] 9:16 AM Procedure Code(s): --- Professional --- 45012, Colonoscopy, flexible; with removal of tumor(s), polyp(s), or other lesion(s) by snare technique Diagnosis Code(s): --- Professional --- K64.8, Other hemorrhoids D12.5, Benign neoplasm of sigmoid colon R10.31, Right lower quadrant pain K57.30, Diverticulosis of large intestine without perforation orabscess without bleeding CPT copyright 2017 [employer]. All rights reserved. The codes documented in this report are preliminary and upon home administrator reviewmay be revised to meet current compliance requirements. Recognized by the [employer] for promoting quality in endoscopy Danyelle Cristobal MD ENDOSCOPY PROCEDURES Final Result * Screening Mammogram Bilateral W Gee (09/12/2017 11:29 AM CDT) Anatomical Region Laterality Modality Breast Bilateral Mammography Addenda Addendum by Thom Castillo MD on 09/19/2017 3:24 PM CDT ADDENDUM #1 Comparison to previous mammogram at [facility] on 02/12/2016 shows a similar [...] COMPARISON: None available. ??Previous mammogram at [facility] in [place], [place]; not brought today for comparison. FINDINGS: [...] COMPARISON: None available. ??Previous mammogram at [facility] in [place], [place]; not brought today for comparison. FINDINGS: [...] [facility] ([facility]) Comment:Testing performed by : [facility], [address] [place] [address], [address] Hep B core IgM Negative Negative [facility] ([facility]) Comment:Testing performed by : [facility], [address] [place] [address], [address] Hep C Ab Negative Negative [facility] ([facility]) Comment:Testing performed by : [facility], [address] [place] [address], [address] HepBsAg Negative Negative [facility] ([facility]) Comment:Testing performed by : [facility], [address] [place] [address], [address] Blood specimen (specimen) 08/15/2017 12:57 PM CDT 08/15/2017 7:02 PM CDT Narrative [facility] ([facility]) - 08/15/2017 8:46 PM CDT us Kellie Maguire MD LAB MICROBIOLOGY - GENERAL OR DERABLES Final Result [facility] ([place]) 1 [facility] Department [place] [address] from Last 3 Months or Most Recently Relevant to Health Maintenance Insurance [facility] Advance Directives For more information, please contact: [phone] * Full Code (Latest Code Status on [...] 8:33 AM 11/28/2019 8:33 AM Care Teams Teacher Visually Impaired Relationship Specialty Start Date End Date Aditya Mensah PA [address] [place] [address] PCP - General Family Practice 05/23/22 Danyelle Cristobal MD Consulting Physician Gastroenterology 08/16/17 Antonio Moon DO [address] [place] [address] DR ROBB [address] [place] [address] Cardiovascular Disease 09/07/18 Mike Arias MD [address] [place] [address] Resident Family Medicine 05/25/22 Miscellaneous, Not In File 08/26/22
[2024-07-05] MEDS: predniSONE 20 MG TABLET 60 MG PO (03:33)
[2024-07-05] MEDS: HYDROmorphone HCL INJ (*CRX) 1 MG/ML SYR IM (03:33)
--- NOTE | 2024-07-05 04:01 | ED_ITS ---
HPI - Back Pain/Injury General Chief Complaint: Back Pain/Injury Stated Complaint: L shoulder, back, and arm pain Time Seen by Provider: 07/05/24 02:42 History of Present Illness HPI Narrative: 53-year-old female with no significant pertinent past medical history presents for repeat evaluation of left-sided neck pain radiating towards her left shoulder and down her left triceps area. Symptoms ongoing for 1 week. She was here yesterday and underwent CT images of her neck and x-rays of her shoulder with no acute osseous process. She was discharged home with symptomatic controlling medications including muscle relaxers. She states she has been trying this over the last 24 hours without any relief of her symptoms. She denies any traumatic injuries or illnesses. No neuropathy, no cryptographic center specialist strength loss, no neurological deficits. Thinks she might have pulled a muscle or something while she was working in the house 1 week prior and that was the cause of this. Was otherwise is asymptomatic. Denies any headache, vision changes, nausea, vomiting, chest pain, shortness a breath, abdominal pain, back pain. Related Data Allergies Allergy/AdvReac Type Severity Reaction Status Date / Time Sulfa (Sulfonamide Allergy Severe Anaphylaxis Verified 07/05/24 01:40 Antibiotics) Penicillins AdvReac Intermediate Hives Verified 07/05/24 01:40 eggs AdvReac Intermediate Hives Uncoded 07/05/24 01:40 Review of Systems Review of Systems: As reviewed above in HPI Exam Narrative: GENERAL: [Well-appearing, well-nourished, and in no acute distress.] HEAD: [Normocephalic, atraumatic.] EYES: [PERRLA and EOMI.] ENT: Nares clear, no rhinorrhea or epistaxis. Mucous membranes moist. NECK: Supple. CHEST: [Clear to auscultation. No respiratory distress.] HEART: [Regular rate and rhythm]. No murmur heard. [Normal peripheral pulses.] ABDOMEN: [Soft, nondistended], [nontender], [No rigidity or guarding] EXTREMITIES: Focal tenderness to palpation of these left-sided paraspinal muscles near the cervical spine and focal tenderness over the posterior scapular muscles and along the scapular spine again with no overlying skin changes. No step-offs deformities, pain is not exacerbated by ranging the left upper extremity. She has good cryptographic center specialist strength 5/5, able to abduct, adduct and manipulate the left arm without difficulty. She is complaining of pain from the neck radiating down the left side. Positive Spurling test. SKIN: Warm, dry, no rash. NEURO: [No focal deficits]. Alert and oriented [x3.] PSYCH: [Normal mood and affect.] Course Vital Signs Vital signs: Vital Signs Temperature 36.9 C 07/05/24 01:43 Pulse Rate 68 07/05/24 01:43 Respiratory Rate 17 07/05/24 01:43 Blood Pressure 153/79 H 07/05/24 01:43 Pulse Oximetry 99 07/05/24 01:43 Oxygen Delivery Room Air 07/05/24 01:43 Temperature 36.9 C 07/05/24 01:43 Pulse Rate 68 07/05/24 01:43 Respiratory Rate 17 07/05/24 01:43 Blood Pressure 153/79 H 07/05/24 01:43 Pulse Oximetry 99 07/05/24 01:43 Oxygen Delivery Room Air 07/05/24 01:43 MDM - Back Pain/Injury MDM Narrative Medical decision making narrative: 53-year-old female presenting with signs and symptoms of cervical radiculopathy radiating down her left side. Her examination is reassuring with no focal neurological deficits, reproducible pain with palpation of the muscles to the left of the cervical spine without any step-offs deformities midline. No midline tenderness. Reproducible pain with manipulation of the cervical spine but no range of motion restrictions. She is otherwise well-appearing, not any acute distress, strong symmetric pulses with distal neuro vasculature that is intact. No red flag symptoms of any neurological or acute cord compression cause. Will obtain CT shoulder images given that she has already received x- rays of the shoulder and chest in addition to cervical spine without any acute osseous process. Patient was given intramuscular Dilaudid and given prednisone for pain control and repeat evaluation after. Patient was re-evaluated improvement symptomatology. Her CT shoulder shows no acute fractures or dislocations but there are some calcifications of the ligaments likely secondary from prior trauma. I asked the patient about any previous injuries and she states she had a remote injury approximately 30 years ago but never had any kind of surgical procedures or fractures. Her symptoms are better controlled but she will still need follow-up with an orthopedic doctor for evaluation of potential MRI imaging. We will send her home with Ultram and steroids for the next few days for symptom control. Patient will be given a sling for comfort and stable for discharge at this time. Medical Records Attestation: I reviewed the patient's medical records. Imaging Data Attestation: I personally reviewed and interpreted this imaging study as follows: Radiologist's impression: No acute fractures or dislocations, coracoclavicular calcifications noted Discharge Plan Discharge Clinical Impression: Left shoulder strain, Cervical strain, Cervical radiculopathy Patient Disposition: Home, Self-Care Condition: Stable Instructions: Antibiotic Form, Cervical Radiculopathy (ED), Exercises for Shoulder Flexion and Extension (ED), Exercises for Internal and External Shoulder Rotation (ED), Exercises for Shoulder Abduction and Adduction (ED), Rotator Cuff Injury Exercises (DC) Additional Instructions: You likely have a combination of ligamentous injury or shoulder strain, cervical radiculopathy. You will need outpatient MRI imaging and we will send you home with pain medications in the meantime. Will refer you to orthopedic surgery for evaluation on outpatient basis and to set up evaluation. Your primary care provider might also be able to refer you for outpatient MRI imaging. Patient Language: Citizen Of [place] Prescriptions: New tramadol 50 mg tablet 50 mg PO Q6H PRN (Reason: pain) Qty: 14 0RF methylprednisolone [Medrol (Hernandez)] 4 mg tablets,dose pack See Rx Instructions .ROUTE .COMPLEX Qty: 21 0RF Rx Instructions: orally per package directions No Action acetaminophen 500 mg tablet 1,000 mg PO TID PRN (Reason: karlo) 7 Days Qty: 42 0RF methocarbamol 750 mg tablet 1,500 mg PO TID Qty: 35 0RF lidocaine 5 % adhesive patch,medicated 1 patch topical DAILY Qty: 15 0RF Rx Instructions: leave on most painful area for up to 12 hrs Follow-up/Referrals: Marshall Nash MD [Physician] - 3 Days (Left-sided shoulder/neck pain, radiculopathy) 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
[2024-07-05] MEDS: [UNRECOGNIZED DRUG - OTHER] XX (04:54)
[2024-07-05 04:55] VITALS: BP 145/74; PULSE 91; RESP 18; O2SAT 100
== END 2024-07-05 04:56 | disposition home or self-care (01) ==
PROVIDERS: Emergency Provider Student in an Organized Health Care Education/Training Program
DX: M54.12 Radiculopathy, cervical region (principal); S16.1XXA Strain of muscle, fascia and tendon at neck level, initial encounter; S46.912A Strain of unspecified muscle, fascia and tendon at shoulder and upper arm level, left arm, initial encounter; R91.8 Other nonspecific abnormal finding of lung field; X58.XXXA Exposure to other specified factors, initial encounter
CPT/HCPCS: 73200; 96372; 99284; A4565; A9270; J1171; J7512